=== PATIENT | female | born 1935 | race Caucasian/White ===

== ENCOUNTER 2017-01-26 21:47 | Outpatient (CLI) | payer MEDICARE | END 2017-01-26 21:48 | disposition critical access hospital (66) | DX: S01.01XA Laceration without foreign body of scalp, initial encounter (principal); W01.198A Fall on same level from slipping, tripping and stumbling with subsequent striking against other object, initial encounter; Y93.01 Activity, walking, marching and hiking; Y92.003 Bedroom of unspecified non-institutional (private) residence as the place of occurrence of the external cause | CPT/HCPCS: A0425; A0429 ==

== ENCOUNTER 2017-01-26 22:36 | Emergency (ER) | payer MEDICARE ==
[2017-01-26] MEDS ORDERED: BACITRACIN OINT TOP STA (23:15)
[2017-01-26] MEDS ORDERED: ACETAMINOPHEN 325 MG TABLET PO STA (23:29)
[2017-01-26] MEDS ORDERED: ACETAMINOPHEN 325 MG TABLET PO ONE (23:31)
== END 2017-01-26 23:44 | disposition home or self-care (01) ==
DX: S00.03XA Contusion of scalp, initial encounter (principal); S00.01XA Abrasion of scalp, initial encounter; W01.198A Fall on same level from slipping, tripping and stumbling with subsequent striking against other object, initial encounter; Y92.009 Unspecified place in unspecified non-institutional (private) residence as the place of occurrence of the external cause; I10 Essential (primary) hypertension; G20 Parkinson's disease; Z86.73 Personal history of transient ischemic attack (TIA), and cerebral infarction without residual deficits; Z79.82 Long term (current) use of aspirin
CPT/HCPCS: 99283; 99284; A9270

== ENCOUNTER 2017-03-28 18:24 | Outpatient (CLI) | payer MEDICARE | END 2017-03-28 18:25 | disposition critical access hospital (66) | LOC: EMS 18:24 | PROVIDERS: ATTEND Surgery | DX: M25.512 Pain in left shoulder (principal); R53.1 Weakness; W07.XXXA Fall from chair, initial encounter; Y92.007 Garden or yard of unspecified non-institutional (private) residence as the place of occurrence of the external cause | CPT/HCPCS: A0425; A0427 ==

== ENCOUNTER 2017-03-28 19:02 | Emergency (ER) | payer MEDICARE ==
[2017-03-28] MEDS ORDERED: fentaNYL 100 MCG/2 ML VIAL IVP STA (19:08)
--- NOTE | 2017-03-28 19:10 | ED Physician Documentation ---
PD HPI Fall - Stated complaint Stated Complaint: GLF - History obtained from History obtained from: Patient, EMS - History of Present Illness Mechanism of injury: Other (82-year-old woman with Parkinson's and A. fib, not anticoagulated presents after a ground-level fall from a sitting position, she hit her head and left arm on a rodriguez and complains of severe left arm pain. She has not been ambulatory since the incident. 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 - Present Medications Home Medications: Ambulatory Orders Medication Instructions Recorded Confirmed Aspirin 325 mg PO DAILY 01/26/17 01/26/17 Carbidopa/Levodopa [Carbidopa-Levo 25 - 100 mg PO QID 01/26/17 03/28/17 ER 25-100 Tab] Cholecalciferol (Vitamin D3) 2,000 mg PO DAILY 01/26/17 01/26/17 [Vitamin D3] Cyanocobalamin (Vitamin B-12) 1 tab PO DAILY 01/26/17 01/26/17 [Vitamin B-12] Estradiol [Estrace] 0.1 mg PO 01/26/17 Hydrochlorothiazide 12.5 mg PO DAILY 01/26/17 01/26/17 Ibuprofen [Motrin] 600 mg PO Q6H 01/26/17 01/26/17 Ipratropium [place] BID 01/26/17 Mirtazapine 7.5 mg PO DAILY 01/26/17 01/26/17 Pramipexole [Mirapex] 1 tab PO DAILY 01/26/17 01/26/17 Tamsulosin [Flomax] 1 tab PO DAILY 01/26/17 01/26/17 Oxycodone HCl/Acetaminophen 1 - 2 tab PO Q4H PRN #20 tablet 03/28/17 [Percocet 5-325 mg Tablet] - Allergies Allergies/Adverse Reactions: Allergies Allergy/AdvReac Type Severity Reaction Status Date / Time Sulfa (Sulfonamide Allergy Rash Verified 03/28/17 19:11 Antibiotics) - Social History Does the pt smoke?: No Smoking Status: Never smoker - Family History Family history: reports: Non contributory - Immunizations Immunizations are current?: Yes PD ED PE NORMAL - Vitals Vital signs reviewed: Yes - General General: Alert and oriented X 3, No acute distress - HEENT HEENT: PERRL, EOMI - Neck Neck: Other (C-collar is maintained pending imaging despite no midline bony tenderness given potential distracting injury from the left arm) - Cardiac Cardiac: Other - Respiratory Respiratory: No respiratory distress, Clear bilaterally - Abdomen Abdomen: Soft, Non tender - Back Back: No CVA TTP, No spinal TTP - Derm Derm: Normal color, Warm and dry - Extremities Extremities: Other (Very tender the upper left humerus, normal neurovascular status distal to this.) - Neuro Neuro: Alert and oriented X 3, Normal speech - Psych Psych: Normal mood, Normal affect Results - Vitals Vitals: Vital Signs - 24 hr 03/28/17 03/28/17 19:04 20:35 Temperature 36.2 C L Heart Rate 82 68 Respiratory 17 15 Rate Blood Pressure 153/76 H 126/65 O2 Saturation 92 94 Oxygen O2 Source Room air - Labs Labs: Laboratory Tests 03/28/17 03/28/17 03/28/17 19:20 19:20 19:20 WBC 5.5 RBC 4.84 Hgb 13.4 Hct 40.2 MCV 83.1 MCH 27.7 MCHC 33.4 RDW 13.7 Plt Count 232 MPV 7.7 L Neut # 3.5 Lymph # 1.5 [place] # 0.4 Eos # 0.1 Baso # 0.1 Absolute Nucleated RBC 0.00 Nucleated RBCs 0.0 PT 12.3 INR 1.1 Sodium 139 Potassium 3.5 Chloride 102 Carbon Dioxide 30 Anion Gap 7.0 BUN 21 H Creatinine 0.5 Estimated GFR (MDRD) 118 Glucose 139 H Calcium 8.9 - Rads (name of study) CT Head and Cspine Radiology: EMP read contemporaneously (Age-related changes without acute disease ) Left humerus Radiology: EMP read contemporaneously (3 part surgical neck fracture) PD MEDICAL DECISION MAKING - ED course ED course: 82-year-old woman after ground-level fall with obvious arm injury, CT of the head and C-spine without acute disease, left arm was placed in a sling and the supportive daughter and granddaughter were counseled as to the conservative nature of this fracture generally and follow up with orthopedics and they were comfortable with the plan. Departure - Departure Disposition: 01 Home, Self Care Clinical Impression: Fall Qualifiers: Encounter type: initial encounter Qualified Code(s): W19.XXXA - Unspecified fall, initial encounter Head contusion Qualifiers: Encounter type: initial encounter Contusion of head detail: unspecified part of head Qualified Code(s): S00.93XA - Contusion of unspecified part of head, initial encounter Left humeral fracture Qualifiers: Encounter type: initial encounter Humerus Location: proximal Fracture type: closed Fracture morphology: unspecified fracture morphology Qualified Code(s): S42.202A - Unspecified fracture of upper end of left humerus, initial encounter for closed fracture Record reviewed to determine appropriate education?: Yes Instructions: ED Fx Upper Ext Follow-Up: [facility] [Provider Group] - Within 1 week Prescriptions: Oxycodone HCl/Acetaminophen [Percocet 5-325 mg Tablet] 1 - 2 tab PO Q4H PRN #20 tablet PRN Reason: Pain Comments: Call your doctor to arrange a follow-up appointment, make the next available appointment. In the interim, return anytime if worse or if new symptoms develop. Do not drink or drive while taking narcotic pain medication. Note that many narcotic pain relievers also contain Tylenol/acetaminophen. Please ensure that your total dose of acetaminophen from all sources does not exceed 3 g (3000 mg) per day. You may get constipated while on this medication. Take a stool softener such as Colace twice a day while you are on it. Also add an [id number] laxative such as senna or MiraLAX on any day that you do not have a bowel movement. If you received a narcotic pain medication or sedative while in the emergency department, do not drive for the next 24 hours.
[2017-03-28] MEDS ORDERED: fentaNYL 100 MCG/2 ML VIAL ONE (19:14)
[2017-03-28 19:36] LABS: BASOPHILS # (AUTO) 0.1 10^3/uL (0.0-0.1); EOSINOPHILS # (AUTO) 0.1 10^3/uL (0.0-0.7); EOSINOPHILS % (AUTO) 1.1 %; HCT - HEMATOCRIT 40.2 % (37.0-47.0); HGB - HEMOGLOBIN 13.4 g/dL (12.0-16.0); LYMPHOCYTES # (AUTO) 1.5 10^3/uL (1.5-3.5); LYMPHOCYTES % (AUTO) 27.1 %; MEAN CORPUSCULAR HEMOGLOBIN 27.7 pg (27.0-31.0); MEAN CORPUSCULAR HGB CONC 33.4 g/dL (32.0-36.0); MEAN CORPUSCULAR VOLUME 83.1 fL (81.0-99.0); MEAN PLATELET VOLUME 7.7 fL (7.9-10.8); MONOCYTES # (AUTO) 0.4 10^3/uL (0.0-1.0); MONOCYTES % (AUTO) 7.5 %; NEUTROPHILS # (AUTO) 3.5 10^3/uL (1.5-6.6); NEUTROPHILS % (AUTO) 63.3 %; RED BLOOD COUNT 4.84 10^6/uL (4.20-5.40); RED CELL DISTRIBUTION WIDTH 13.7 % (12.0-15.0); UNCORRECTED WHITE BLOOD COUNT 5.5 x10^3/uL; WHITE BLOOD COUNT 5.5 x10^3/uL (4.8-10.8)
[2017-03-28 19:39] LABS: CALCIUM 8.9 mg/dL (8.5-10.3); CREATININE 0.5 mg/dL (0.4-1.0); POTASSIUM 3.5 mmol/L (3.5-5.0)
[2017-03-28 19:42] LABS: INR 1.1 (0.8-1.2); PT - PROTHROMBIN TIME 12.3 secs (9.9-12.6)
[2017-03-28] MEDS ORDERED: MORPHINE 2 MG/ML SYRINGE IVP STA (20:14)
--- NOTE | 2017-03-28 20:31 | CT Preliminary Report ---
Exam: CT Cervical Spine W/O IMPRESSION: 1. No acute fracture. 2. Normal prevertebral soft tissues. Multilevel degenerative disk and facet arthropathy, see above. [facility] SITE ID: [id number]
[2017-03-28] MEDS ORDERED: MORPHINE 2 MG/ML SYRINGE ONE (20:35)
--- NOTE | 2017-03-28 20:35 | CT Preliminary Report ---
Exam: CT Head W/O IMPRESSION: Generalized age-related cortical atrophic changes without evidence of acute intracranial abnormality. [facility] SITE ID: [id number]
--- NOTE | 2017-03-28 20:36 | XRAY Preliminary Report ---
Exam: XR Humerus LT IMPRESSION: 1. Comminuted three-part humeral neck fracture as described. 2. No dislocation. [facility] SITE ID: [id number]
--- NOTE | 2017-03-28 20:39 | XRAY Report ---
EXAM: LEFT HUMERUS RADIOGRAPHY EXAM DATE: 03/28/2017 07:59 PM. CLINICAL HISTORY: Status post fall, left humeral pain. COMPARISON: None. TECHNIQUE: 2 views. FINDINGS: Bones: There is contour deformity about the humeral neck with a probable mildly displaced greater tub erosity avulsion fracture and transverse humeral neck fracture. The remainder of the humeral shaft is intact. Joints: The humeral head and elbow joints appear normally located. The AC joint is normally located. Soft Tissues: Normal. No soft tissue swelling. IMPRESSION: 1. Comminuted three-part humeral neck fracture as described. 2. No dislocation. [facility] Referring Provider Line: [phone] SITE ID: [id number]
--- NOTE | 2017-03-28 20:40 | CT Report ---
EXAM: CT CERVICAL SPINE WITHOUT CONTRAST DATE: 03/28/2017 07:40 p.m. HISTORY: Fall. COMPARISONS: None. TECHNIQUE: Thin-section axial images were acquired of the cervical spine without contrast. Post-proce ssing: Coronal and sagittal reformats. Other: None. In accordance with CT protocol optimization, one or more of the following dose reduction techniques w ere utilized for this exam: automated exposure control, adjustment of mA and/or KV based on patient s ize, or use of iterative reconstructive technique. FINDINGS: Alignment: Convex to the right curvature of the cervical spine is noted. 1 mm C4 on C5 anterolisthesi s. Bones: No fracture or bone lesion. Interspace Levels/Facets: Moderate C5-C6 and C6-C7 and mild C7-T1 disk narrowing. Prominent C5-C6 and C6-C7 disk osteophyte complex is noted. Marked left C3-C4, C4-C5, C6-C7 and C7-T1 facet arthropathy. Significant amount of hyperdense pannus surrounds the dens. Musculature: Normal. No fatty atrophy. Other: The paravertebral and prevertebral soft tissues are normal. The lung apices are clear. Small a mount of fluid in the right mastoid tip. No fracture noted. IMPRESSION: 1. No acute fracture. 2. Normal prevertebral soft tissues. Multilevel degenerative disk and facet arthropathy, see above. [facility] Referring Provider Line: [phone] SITE ID: [id number]
--- NOTE | 2017-03-28 20:40 | CT Report ---
EXAM: CT HEAD EXAM DATE: 03/28/2017 08:07 p.m. CLINICAL HISTORY: Head injury. COMPARISON: None. TECHNIQUE: Multiaxial CT images were obtained from the foramen magnum to the vertex. IV contrast: Non e. Reformats: Coronal. In accordance with CT protocol optimization, one or more of the following dose reduction techniques w ere utilized for this exam: automated exposure control, adjustment of mA and/or KV based on patient s ize, or use of iterative reconstructive technique. FINDINGS: Parenchyma: No intraparenchymal hemorrhage. No evidence of mass, midline shift, or CT findings of acu te infarction. Urias-white differentiation is distinct. Old right cerebellar infarct. Extraaxial Spaces: Normal for age. No subdural or epidural collections identified. Ventricles: The ventricles and cortical sulci are enlarged, consistent with age-related tissue loss. Sinuses: Small amount of fluid in the right mastoid tip. Paranasal sinuses are clear. Otherwise, the imaged paranasal sinuses, orbits, and mastoids show no significant abnormality. Bones: No evidence of fracture or calvarial defect. Other: Diffuse chronic microangiopathic white matter changes are evident. IMPRESSION: Generalized age-related cortical atrophic changes without evidence of acute intracranial abnormality. [facility] Referring Provider Line: [phone] SITE ID: [id number]
[2017-03-28] MEDS ORDERED: oxyCODONE/ACET 5/325 Prepack 4 PO STA (20:49)
[2017-03-28] MEDS ORDERED: oxyCODONE/ACET 5/325 Prepack 4 PO ONE (20:56)
[2017-03-28 21:20] VITALS: BP 128/81
== END 2017-03-28 21:34 | disposition home or self-care (01) ==
LOC: EDUNIT# → EDBD → ED 19:02
DX: S00.93XA Contusion of unspecified part of head, initial encounter (principal); S42.202A Unspecified fracture of upper end of left humerus, initial encounter for closed fracture; W18.30XA Fall on same level, unspecified, initial encounter; W22.09XA Striking against other stationary object, initial encounter; G20 Parkinson's disease; I10 Essential (primary) hypertension; Z86.73 Personal history of transient ischemic attack (TIA), and cerebral infarction without residual deficits; Z79.82 Long term (current) use of aspirin
CPT/HCPCS: 36415; 70450; 72125; 80048; 85025; 85610; 96374; 96375; 99284; 99285

== ENCOUNTER 2017-03-29 18:33 | Outpatient (CLI) | payer MEDICARE | END 2017-03-29 18:34 | disposition EMS.NT | LOC: EMS 18:33 | PROVIDERS: ATTEND Surgery | DX: R09.89 Other specified symptoms and signs involving the circulatory and respiratory systems (principal); T17.928A Food in respiratory tract, part unspecified causing other injury, initial encounter ==

== ENCOUNTER → 2019-12-06 | Outpatient (CLI) | payer MEDICARE ==
[2019-12-06 17:01] LABS: BILIRUBIN,URINE NEGATIVE (NEGATIVE); GLUCOSE, URINE (UA) NEGATIVE (NEGATIVE); KETONES,URINE (UA) NEGATIVE (NEGATIVE); LEUKOCYTE ESTERASE, URINE SMALL (NEGATIVE); NITRITE,URINE POSITIVE (NEGATIVE); OCCULT BLOOD,URINE SMALL (NEGATIVE); PH,URINE 7.5 PH (5.0-7.5); PROTEIN,URINE TRACE mg/dL (NEGATIVE); UROBILINOGEN,URINE 0.2 (NORMAL) E.U./dL (NORMAL)
[2019-12-06 17:05] LABS: CLARITY,URINE HAZY (CLEAR)
[2019-12-06 17:11] LABS: AMORPHOUS SEDIMENT,UR Few /LPF; BACTERIA,URINE Many /HPF (None Seen); SQUAMOUS EPITHELIAL CELL,UR FEW Squamous (<= Few)
== END ==
LOC: LAB.R 11:00
PROVIDERS: ATTEND Internal Medicine
DX: Z87.440 Personal history of urinary (tract) infections (principal)
CPT/HCPCS: 81001; 87086

== ENCOUNTER 2019-12-24 07:00 | Outpatient (CLI) | payer MEDICARE ==
[2019-12-24 17:31] LABS: BILIRUBIN,URINE NEGATIVE (NEGATIVE); GLUCOSE, URINE (UA) NEGATIVE (NEGATIVE); KETONES,URINE (UA) TRACE mg/dL (NEGATIVE); LEUKOCYTE ESTERASE, URINE SMALL (NEGATIVE); NITRITE,URINE POSITIVE (NEGATIVE); OCCULT BLOOD,URINE TRACE-LYSE (NEGATIVE); PH,URINE 6.5 PH (5.0-7.5); PROTEIN,URINE 100 mg/dL (NEGATIVE); UROBILINOGEN,URINE 0.2 (NORMAL) E.U./dL (NORMAL)
[2019-12-24 17:53] LABS: BACTERIA,URINE Many /HPF (None Seen); CLARITY,URINE CLOUDY (CLEAR); RBC,URINE TNTC /HPF (0-5); SQUAMOUS EPITHELIAL CELL,UR NONE SEEN (<= Few); WBC CLUMPS,URINE PRESENT
== END 2019-12-24 23:59 | disposition home or self-care (01) ==
LOC: LAB.R 07:00
PROVIDERS: ATTEND Internal Medicine
DX: R30.0 Dysuria (principal)
CPT/HCPCS: 81001; 87077; 87086; 87181

== ENCOUNTER 2020-03-21 13:00 | Outpatient (CLI) | payer MEDICARE ==
[2020-03-21 14:43] LABS: BILIRUBIN,URINE NEGATIVE (NEGATIVE); GLUCOSE, URINE (UA) NEGATIVE (NEGATIVE); KETONES,URINE (UA) TRACE mg/dL (NEGATIVE); LEUKOCYTE ESTERASE, URINE SMALL (NEGATIVE); NITRITE,URINE POSITIVE (NEGATIVE); OCCULT BLOOD,URINE TRACE-INTA (NEGATIVE); PROTEIN,URINE 30 mg/dL (NEGATIVE); UROBILINOGEN,URINE 0.2 (NORMAL) E.U./dL (NORMAL)
[2020-03-21 14:53] LABS: CLARITY,URINE HAZY (CLEAR); RBC,URINE 0-5 /HPF (0-5); SQUAMOUS EPITHELIAL CELL,UR NONE SEEN (<= Few)
[2020-03-21 14:54] LABS: BACTERIA,URINE Many /HPF (None Seen)
== END 2020-03-21 13:01 | disposition home or self-care (01) ==
LOC: LAB.S 13:00
PROVIDERS: ATTEND Internal Medicine
DX: R30.0 Dysuria (principal)
CPT/HCPCS: 81001; 87077; 87086; 87181

== ENCOUNTER 2021-02-02 00:54 | Outpatient (CLI) | payer MEDICARE | END 2021-02-02 00:55 | disposition EMS.NT | LOC: EMS 00:54 | DX: Z03.89 Encounter for observation for other suspected diseases and conditions ruled out (principal) ==

== ENCOUNTER 2021-04-16 08:00 | Outpatient (CLI) | payer MEDICARE, OTHER | END 2021-04-16 23:59 | disposition home or self-care (01) | LOC: LAB.S 08:00 | PROVIDERS: ATTEND Physician Assistant Medical | DX: N30.90 Cystitis, unspecified without hematuria (principal) | CPT/HCPCS: 87086 ==

== ENCOUNTER 2021-05-02 07:00 | Outpatient (CLI) | payer MEDICARE ==
[2021-05-02 14:52] LABS: BILIRUBIN,URINE NEGATIVE (NEGATIVE); GLUCOSE, URINE (UA) NEGATIVE (NEGATIVE); KETONES,URINE (UA) NEGATIVE (NEGATIVE); LEUKOCYTE ESTERASE, URINE SMALL (NEGATIVE); NITRITE,URINE NEGATIVE (NEGATIVE); OCCULT BLOOD,URINE TRACE-LYSE (NEGATIVE); PH,URINE 8.5 PH (5.0-7.5); PROTEIN,URINE 30 mg/dL (NEGATIVE); UROBILINOGEN,URINE 1 (NORMAL) E.U./dL (NORMAL)
[2021-05-02 15:07] LABS: CLARITY,URINE CLOUDY (CLEAR)
[2021-05-02 16:00] LABS: RBC,URINE 0-5 /HPF (0-5)
[2021-05-02 16:01] LABS: AMORPHOUS SEDIMENT,UR Moderate /LPF; BACTERIA,URINE Moderate /HPF (None Seen); MUCUS,URINE Few Strands; SQUAMOUS EPITHELIAL CELL,UR MANY Squamous (<= Few)
== END 2021-05-02 23:59 | disposition home or self-care (01) ==
LOC: LAB.R 07:00
PROVIDERS: ATTEND Emergency Medicine
DX: R30.0 Dysuria (principal)
CPT/HCPCS: 81001; 81003; 87086

== ENCOUNTER 2021-05-19 12:35 | Outpatient (CLI) | payer MEDICARE, OTHER | END 2021-05-19 12:36 | disposition short-term general hospital (02) | LOC: EMS 12:35 | DX: Z04.3 Encounter for examination and observation following other accident (principal); M25.552 Pain in left hip | CPT/HCPCS: A0425; A0427 ==

== ENCOUNTER 2021-06-02 08:00 | Outpatient (CLI) | payer MEDICARE, OTHER ==
[2021-06-02 17:09] LABS: BASOPHILS % (AUTO) 0.6 %; EOSINOPHILS # (AUTO) 0.1 10^3/uL (0.0-0.7); EOSINOPHILS % (AUTO) 1.4 %; HCT - HEMATOCRIT 37.4 % (37.0-47.0); HGB - HEMOGLOBIN 11.5 g/dL (12.0-16.0); LYMPHOCYTES # (AUTO) 0.7 10^3/uL (1.5-3.5); LYMPHOCYTES % (AUTO) 9.5 %; MEAN CORPUSCULAR HEMOGLOBIN 28.7 pg (27.0-31.0); MEAN CORPUSCULAR HGB CONC 30.7 g/dL (32.0-36.0); MEAN CORPUSCULAR VOLUME 93.3 fL (81.0-99.0); MEAN PLATELET VOLUME 9.2 fL (7.9-10.8); MONOCYTES # (AUTO) 0.5 10^3/uL (0.0-1.0); MONOCYTES % (AUTO) 7.5 %; NEUTROPHILS # (AUTO) 5.6 10^3/uL (1.5-6.6); NEUTROPHILS % (AUTO) 79.7 %; PLT - PLATELET COUNT 440 10^3/uL (130-450); RED BLOOD COUNT 4.01 10^6/uL (4.20-5.40); RED CELL DISTRIBUTION WIDTH 14.6 % (12.0-15.0)
[2021-06-02 18:02] LABS: ALBUMIN 2.9 g/dL (3.2-5.5); ALBUMIN/GLOBULIN RATIO 1.2 (1.0-2.2); BILIRUBIN,TOTAL 0.7 mg/dL (0.2-1.0); CALCIUM 8.9 mg/dL (8.5-10.3); CREATININE 0.6 mg/dL (0.4-1.0); POTASSIUM 4.3 mmol/L (3.5-5.0); TOTAL PROTEIN 5.4 g/dL (6.7-8.2)
== END 2021-06-02 23:59 | disposition home or self-care (01) ==
LOC: LAB.R 08:00
PROVIDERS: ATTEND Family Medicine
DX: D64.9 Anemia, unspecified (principal); G20 Parkinson's disease; I48.91 Unspecified atrial fibrillation
CPT/HCPCS: 80053; 82728; 85025

== ENCOUNTER 2021-06-30 08:00 | Outpatient (CLI) | payer MEDICARE, OTHER ==
[2021-07-01 00:48] LABS: BASOPHILS # (AUTO) 0.1 10^3/uL (0.0-0.1); BASOPHILS % (AUTO) 0.8 %; EOSINOPHILS # (AUTO) 0.4 10^3/uL (0.0-0.7); EOSINOPHILS % (AUTO) 5.9 %; HCT - HEMATOCRIT 39.8 % (37.0-47.0); HGB - HEMOGLOBIN 12.5 g/dL (12.0-16.0); LYMPHOCYTES # (AUTO) 1.2 10^3/uL (1.5-3.5); LYMPHOCYTES % (AUTO) 17.9 %; MEAN CORPUSCULAR HEMOGLOBIN 27.8 pg (27.0-31.0); MEAN CORPUSCULAR HGB CONC 31.4 g/dL (32.0-36.0); MEAN CORPUSCULAR VOLUME 88.4 fL (81.0-99.0); MEAN PLATELET VOLUME 9.7 fL (7.9-10.8); MONOCYTES # (AUTO) 0.5 10^3/uL (0.0-1.0); MONOCYTES % (AUTO) 8.3 %; NEUTROPHILS # (AUTO) 4.3 10^3/uL (1.5-6.6); NEUTROPHILS % (AUTO) 66.5 %; PLT - PLATELET COUNT 306 10^3/uL (130-450); RED CELL DISTRIBUTION WIDTH 13.3 % (12.0-15.0); WHITE BLOOD COUNT 6.5 x10^3/uL (4.8-10.8)
[2021-07-01 00:53] LABS: CALCIUM 9.1 mg/dL (8.5-10.3); CREATININE 0.6 mg/dL (0.4-1.0); POTASSIUM 3.8 mmol/L (3.5-5.0)
== END 2021-06-30 23:59 ==
LOC: LAB.R 08:00
PROVIDERS: ATTEND Family Medicine
DX: I10 Essential (primary) hypertension (principal)
CPT/HCPCS: 80048; 85025

== ENCOUNTER 2021-07-27 08:00 | Outpatient (CLI) | payer MEDICARE, OTHER ==
[2021-07-27 18:46] LABS: BASOPHILS # (AUTO) 0.1 10^3/uL (0.0-0.1); BASOPHILS % (AUTO) 0.9 %; EOSINOPHILS # (AUTO) 0.2 10^3/uL (0.0-0.7); EOSINOPHILS % (AUTO) 2.9 %; HCT - HEMATOCRIT 43.8 % (37.0-47.0); HGB - HEMOGLOBIN 13.5 g/dL (12.0-16.0); LYMPHOCYTES # (AUTO) 0.9 10^3/uL (1.5-3.5); LYMPHOCYTES % (AUTO) 14.6 %; MEAN CORPUSCULAR HEMOGLOBIN 26.7 pg (27.0-31.0); MEAN CORPUSCULAR HGB CONC 30.8 g/dL (32.0-36.0); MEAN CORPUSCULAR VOLUME 86.6 fL (81.0-99.0); MEAN PLATELET VOLUME 10.2 fL (7.9-10.8); MONOCYTES # (AUTO) 0.5 10^3/uL (0.0-1.0); MONOCYTES % (AUTO) 7.8 %; NEUTROPHILS # (AUTO) 4.3 10^3/uL (1.5-6.6); NEUTROPHILS % (AUTO) 73.5 %; PLT - PLATELET COUNT 281 10^3/uL (130-450); RED BLOOD COUNT 5.06 10^6/uL (4.20-5.40); RED CELL DISTRIBUTION WIDTH 13.1 % (12.0-15.0); WHITE BLOOD COUNT 5.9 x10^3/uL (4.8-10.8)
[2021-07-27 18:53] LABS: ALBUMIN 3.5 g/dL (3.2-5.5); ALBUMIN/GLOBULIN RATIO 1.2 (1.0-2.2); ALKALINE PHOSPHATASE 70 IU/L (42-121); ALT ALANINE AMINOTRANSFERASE < 10 IU/L (10-60); AST ASPARTATE AMINOTRANSFERASE 12 IU/L (10-42); BILIRUBIN,TOTAL 0.6 mg/dL (0.2-1.0); BUN - BLOOD UREA NITROGEN 16 mg/dL (6-20); CALCIUM 9.4 mg/dL (8.5-10.3); CARBON DIOXIDE - CO2 29 mmol/L (21-32); CHLORIDE 104 mmol/L (101-111); CREATININE 0.4 mg/dL (0.4-1.0); GFR - MDRD 151 (>89); GLUCOSE 100 mg/dL (70-100); SODIUM 143 mmol/L (135-145); TOTAL PROTEIN 6.4 g/dL (6.7-8.2)
== END 2021-07-27 23:59 ==
LOC: LAB.R 08:00
PROVIDERS: ATTEND Family Medicine
DX: G20 Parkinson's disease (principal); I48.91 Unspecified atrial fibrillation; N82.3 Fistula of vagina to large intestine
CPT/HCPCS: 80053; 81001; 81003; 85025; 87086

== ENCOUNTER → 2021-07-28 | Outpatient (CLI) | payer MEDICARE, OTHER ==
[2021-07-28 01:10] LABS: BILIRUBIN,URINE NEGATIVE (NEGATIVE); GLUCOSE, URINE (UA) NEGATIVE (NEGATIVE); KETONES,URINE (UA) TRACE mg/dL (NEGATIVE); LEUKOCYTE ESTERASE, URINE SMALL (NEGATIVE); NITRITE,URINE POSITIVE (NEGATIVE); OCCULT BLOOD,URINE TRACE-INTA (NEGATIVE); PROTEIN,URINE NEGATIVE (NEGATIVE); UROBILINOGEN,URINE 1 (NORMAL) E.U./dL (NORMAL)
[2021-07-28 01:11] LABS: CLARITY,URINE SL. CLOUDY (CLEAR)
[2021-07-28 01:18] LABS: BACTERIA,URINE Many /HPF (None Seen); RBC,URINE 0-5 /HPF (0-5); SQUAMOUS EPITHELIAL CELL,UR NONE SEEN (<= Few)
== END ==
LOC: LAB.R 08:00
PROVIDERS: ATTEND Family Medicine
DX: N82.3 Fistula of vagina to large intestine (principal)
CPT/HCPCS: 81001; 81003; 87086

== ENCOUNTER 2021-08-07 19:36 | Outpatient (CLI) | payer MEDICARE, OTHER, MEDICAID | END 2021-08-07 19:37 | disposition critical access hospital (66) | LOC: EMS 19:36 | DX: N39.0 Urinary tract infection, site not specified (principal); F03.90 Unspecified dementia, unspecified severity, without behavioral disturbance, psychotic disturbance, mood disturbance, and anxiety | CPT/HCPCS: A0425; A0428; A0429 ==

== ENCOUNTER 2021-08-07 19:42 | Emergency (ER) | payer MEDICARE, OTHER ==
[2021-08-07 19:50] VITALS: BP 118/86
[2021-08-07] MEDS ORDERED: cephALEXin 250 MG CAPSULE PO STA (19:53)
--- NOTE | 2021-08-07 19:58 | ED Physician Documentation ---
History of Present Illness - Stated complaint Stated Complaint: FEMALE - Chief complaint Chief Complaint: UTI - History obtained from History obtained from: Patient, EMS - History of Present Illness Timing: Today Pain level max: 0 Pain level now: 0 - Additonal information Additional information: Patient is an 86-year-old female Who was sent over from [facility] for UTI. Has chronic recurrent UTIs. Has a chronic rectovaginal fistula. 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 Patient is afebrile with no complaints currently. 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 - Present Medications Home Medications: Ambulatory Orders Medication Instructions Recorded Confirmed Aspirin 325 mg PO DAILY 01/26/17 01/26/17 Carbidopa/Levodopa [Carbidopa-Levo 25 - 100 mg PO QID 01/26/17 03/28/17 ER 25-100 Tab] Cholecalciferol (Vitamin D3) 2,000 mg PO DAILY 01/26/17 01/26/17 [Vitamin D3] Cyanocobalamin (Vitamin B-12) 1 tab PO DAILY 01/26/17 01/26/17 [Vitamin B-12] Estradiol [Estrace] 0.1 mg PO 01/26/17 Ibuprofen [Motrin] 600 mg PO Q6H 01/26/17 01/26/17 Ipratropium [place] BID 01/26/17 Mirtazapine 7.5 mg PO DAILY 01/26/17 01/26/17 Pramipexole [Mirapex] 1 tab PO DAILY 01/26/17 01/26/17 Tamsulosin [Flomax] 1 tab PO DAILY 01/26/17 01/26/17 hydroCHLOROthiazide 12.5 mg PO DAILY 01/26/17 01/26/17 [Hydrochlorothiazide] Oxycodone HCl/Acetaminophen 1 - 2 tab PO Q4H PRN #20 tablet 03/28/17 [Percocet 5-325 mg Tablet] cephALEXin [Keflex] 500 mg PO Q6H #20 cap 08/07/21 - Allergies Allergies/Adverse Reactions: Allergies Allergy/AdvReac Type Severity Reaction Status Date / Time alendronate sodium Allergy Unknown Verified 08/07/21 19:51 [From Fosamax] amoxicillin Allergy Unknown Verified 08/07/21 19:51 oxycodone Allergy Unknown Verified 08/07/21 19:51 risedronate sodium Allergy Unknown Verified 08/07/21 19:51 Sulfa (Sulfonamide Allergy Rash Verified 08/07/21 19:51 Antibiotics) tramadol Allergy Unknown Verified 08/07/21 19:51 - Social History Does the pt smoke?: No Smoking Status: Never smoker - Immunizations Immunizations are current?: Yes PD ED PE NORMAL - Vitals Vital signs reviewed: Yes - General General: No acute distress, Other (Alert, pleasant. Oriented to person and place) - HEENT HEENT: PERRL, Moist mucous membranes - Neck Neck: Supple, no meningeal sign - Cardiac Cardiac: RRR - Respiratory Respiratory: No respiratory distress, Clear bilaterally - Abdomen Abdomen: Soft, Non tender, Non distended - Female Female : Other (Incontinent in a diaper. No significant skin breakdown.) - Derm Derm: Warm and dry Results - Vitals Vitals: Vital Signs - 24 hr 08/07/21 08/07/21 19:46 20:04 Temperature 36.6 C 36.6 C Heart Rate 91 91 Respiratory 18 18 Rate Blood Pressure 118/86 H 118/86 H O2 Saturation 97 97 Oxygen O2 Source Room air PD MEDICAL DECISION MAKING - ED course Complexity details: reviewed old records, considered differential, d/w patient ED course: Patient with symptoms of her recurrent UTI. Reviewed her prior cultures and we will place her on cephalexin. Appears to have tolerated this well in the past. Patient will be returned to [facility]. This document was made in part using voice recognition software. While efforts are made to proofread this document, sound alike and grammatical errors may occur. Departure - Departure Disposition: 01 Home, Self Care Clinical Impression: Urinary tract infection Qualifiers: Urinary tract infection type: acute cystitis Hematuria presence: without hematuria Qualified Code(s): N30.00 - Acute cystitis without hematuria Condition: Good Instructions: ED UTI Cystitis Female Follow-Up: your,doctor as needed [Other] Prescriptions: cephALEXin [Keflex] 500 mg PO Q6H #20 cap Comments: Take all antibiotics until gone. Return if you worsen. The prescription was sent to the [facility] pharmacy. Discharge Date/Time: 08/07/21 20:06
== END 2021-08-07 20:06 | disposition home or self-care (01) ==
LOC: EDBD → EDUNIT# → ED 19:42
DX: N30.00 Acute cystitis without hematuria (principal)
CPT/HCPCS: 99282; 99283; A9270

== ENCOUNTER 2021-08-07 20:06 | Outpatient (CLI) | payer MEDICARE, OTHER, MEDICAID | END 2021-08-07 20:07 | disposition home or self-care (01) | LOC: EMS 20:06 | PROVIDERS: ATTEND Emergency Medicine | DX: F03.90 Unspecified dementia, unspecified severity, without behavioral disturbance, psychotic disturbance, mood disturbance, and anxiety (principal) ==

== ENCOUNTER 2021-12-01 07:00 | Outpatient (CLI) | payer MEDICARE, MEDICAID ==
[2021-12-01 15:05] LABS: BASOPHILS % (AUTO) 0.4 %; EOSINOPHILS # (AUTO) 0.1 10^3/uL (0.0-0.7); EOSINOPHILS % (AUTO) 1.3 %; HCT - HEMATOCRIT 43.3 % (37.0-47.0); HGB - HEMOGLOBIN 13.3 g/dL (12.0-16.0); LYMPHOCYTES # (AUTO) 1.1 10^3/uL (1.5-3.5); LYMPHOCYTES % (AUTO) 21.2 %; MEAN CORPUSCULAR HEMOGLOBIN 26.4 pg (27.0-31.0); MEAN CORPUSCULAR HGB CONC 30.7 g/dL (32.0-36.0); MEAN CORPUSCULAR VOLUME 85.9 fL (81.0-99.0); MEAN PLATELET VOLUME 9.7 fL (7.9-10.8); MONOCYTES # (AUTO) 0.5 10^3/uL (0.0-1.0); NEUTROPHILS # (AUTO) 3.6 10^3/uL (1.5-6.6); NEUTROPHILS % (AUTO) 67.5 %; PLT - PLATELET COUNT 218 10^3/uL (130-450); RED BLOOD COUNT 5.04 10^6/uL (4.20-5.40); RED CELL DISTRIBUTION WIDTH 15.3 % (12.0-15.0); WHITE BLOOD COUNT 5.3 x10^3/uL (4.8-10.8)
[2021-12-01 15:15] LABS: ALBUMIN 3.6 g/dL (3.2-5.5); ALBUMIN/GLOBULIN RATIO 1.3 (1.0-2.2); ALKALINE PHOSPHATASE 68 IU/L (42-121); ALT ALANINE AMINOTRANSFERASE < 10 IU/L (10-60); AST ASPARTATE AMINOTRANSFERASE 20 IU/L (10-42); BILIRUBIN,TOTAL 0.7 mg/dL (0.2-1.0); BUN - BLOOD UREA NITROGEN 20 mg/dL (6-20); CALCIUM 9.4 mg/dL (8.5-10.3); CARBON DIOXIDE - CO2 30 mmol/L (21-32); CHLORIDE 101 mmol/L (101-111); CREATININE 0.4 mg/dL (0.4-1.0); GFR - MDRD 151 (>89); GLUCOSE 124 mg/dL (70-100); POTASSIUM 4.1 mmol/L (3.5-5.0); SODIUM 140 mmol/L (135-145); TOTAL PROTEIN 6.4 g/dL (6.7-8.2)
== END 2021-12-01 23:59 | disposition home or self-care (01) ==
LOC: LAB.R 07:00
PROVIDERS: ATTEND Hospitalist
DX: G20 Parkinson's disease (principal); I10 Essential (primary) hypertension; I48.91 Unspecified atrial fibrillation
CPT/HCPCS: 80053; 85025

== ENCOUNTER 2021-12-03 16:40 | Outpatient (CLI) | payer MEDICARE, MEDICAID ==
[2021-12-03 17:24] LABS: ALBUMIN 3.7 g/dL (3.2-5.5); ALBUMIN/GLOBULIN RATIO 1.3 (1.0-2.2); ALKALINE PHOSPHATASE 75 IU/L (42-121); ALT ALANINE AMINOTRANSFERASE < 10 IU/L (10-60); AST ASPARTATE AMINOTRANSFERASE 20 IU/L (10-42); BILIRUBIN,TOTAL 0.5 mg/dL (0.2-1.0); BUN - BLOOD UREA NITROGEN 20 mg/dL (6-20); CALCIUM 9.4 mg/dL (8.5-10.3); CARBON DIOXIDE - CO2 28 mmol/L (21-32); CHLORIDE 101 mmol/L (101-111); CREATININE 0.4 mg/dL (0.4-1.0); GFR - MDRD 151 (>89); GLUCOSE 128 mg/dL (70-100); SODIUM 139 mmol/L (135-145); TOTAL PROTEIN 6.6 g/dL (6.7-8.2)
[2021-12-03 18:24] LABS: BASOPHILS % (AUTO) 0.4 %; EOSINOPHILS # (AUTO) 0.1 10^3/uL (0.0-0.7); HCT - HEMATOCRIT 45.5 % (37.0-47.0); HGB - HEMOGLOBIN 13.9 g/dL (12.0-16.0); LYMPHOCYTES # (AUTO) 1.5 10^3/uL (1.5-3.5); LYMPHOCYTES % (AUTO) 29.2 %; MEAN CORPUSCULAR HEMOGLOBIN 26.4 pg (27.0-31.0); MEAN CORPUSCULAR HGB CONC 30.5 g/dL (32.0-36.0); MEAN CORPUSCULAR VOLUME 86.3 fL (81.0-99.0); MEAN PLATELET VOLUME 10.2 fL (7.9-10.8); MONOCYTES # (AUTO) 0.4 10^3/uL (0.0-1.0); MONOCYTES % (AUTO) 7.9 %; NEUTROPHILS % (AUTO) 59.9 %; PLT - PLATELET COUNT 239 10^3/uL (130-450); RED BLOOD COUNT 5.27 10^6/uL (4.20-5.40); RED CELL DISTRIBUTION WIDTH 15.4 % (12.0-15.0); WHITE BLOOD COUNT 5.1 x10^3/uL (4.8-10.8)
== END 2021-12-03 23:59 | disposition home or self-care (01) ==
LOC: LAB.R 16:40
PROVIDERS: ATTEND Hospitalist
DX: G20 Parkinson's disease (principal)
CPT/HCPCS: 80053; 85025

== ENCOUNTER 2022-04-01 08:00 | Outpatient (CLI) | payer MEDICARE, MEDICAID ==
[2022-04-01 16:19] LABS: GLUCOSE, URINE (UA) NEGATIVE (NEGATIVE); KETONES,URINE (UA) NEGATIVE (NEGATIVE); LEUKOCYTE ESTERASE, URINE MODERATE (NEGATIVE); NITRITE,URINE NEGATIVE (NEGATIVE); OCCULT BLOOD,URINE LARGE (NEGATIVE); PH,URINE 7.5 PH (5.0-7.5); PROTEIN,URINE >=300 mg/dL (NEGATIVE); UROBILINOGEN,URINE 0.2 (NORMAL) E.U./dL (NORMAL)
[2022-04-01 16:20] LABS: CLARITY,URINE CLOUDY (CLEAR)
[2022-04-01 16:22] LABS: BILIRUBIN,URINE NEGATIVE (NEGATIVE); ICTOTEST,URINE NEGATIVE
[2022-04-01 16:29] LABS: BACTERIA,URINE Many /HPF (None Seen); SQUAMOUS EPITHELIAL CELL,UR RARE Squamous (<= Few); WBC,URINE >25 /HPF (0-5)
== END 2022-04-01 23:59 | disposition home or self-care (01) ==
LOC: LAB.R 08:00
PROVIDERS: ATTEND Hospitalist
DX: N39.0 Urinary tract infection, site not specified (principal)
CPT/HCPCS: 81001; 87077; 87086; 87181

== ENCOUNTER 2022-05-01 11:46 | Outpatient (CLI) | payer MEDICARE, MEDICAID ==
[2022-05-01 11:55] LABS: BILIRUBIN,URINE NEGATIVE (NEGATIVE); CLARITY,URINE CLOUDY (CLEAR); GLUCOSE, URINE (UA) NEGATIVE (NEGATIVE); KETONES,URINE (UA) TRACE mg/dL (NEGATIVE); LEUKOCYTE ESTERASE, URINE MODERATE (NEGATIVE); NITRITE,URINE POSITIVE (NEGATIVE); OCCULT BLOOD,URINE LARGE (NEGATIVE); PROTEIN,URINE 100 mg/dL (NEGATIVE); UROBILINOGEN,URINE 0.2 (NORMAL) E.U./dL (NORMAL)
[2022-05-01 12:08] LABS: BACTERIA,URINE Moderate /HPF (None Seen); SQUAMOUS EPITHELIAL CELL,UR FEW Squamous (<= Few); WBC,URINE >25 /HPF (0-5)
== END 2022-05-01 11:47 | disposition home or self-care (01) ==
LOC: LAB.R 11:46
PROVIDERS: ATTEND Hospitalist
DX: N39.0 Urinary tract infection, site not specified (principal)
CPT/HCPCS: 81001; 87086; 87181

== ENCOUNTER 2022-06-18 08:00 | Outpatient (CLI) | payer MEDICARE, MEDICAID ==
[2022-06-18 18:24] LABS: BILIRUBIN,URINE NEGATIVE (NEGATIVE); GLUCOSE, URINE (UA) NEGATIVE (NEGATIVE); KETONES,URINE (UA) NEGATIVE (NEGATIVE); LEUKOCYTE ESTERASE, URINE LARGE (NEGATIVE); NITRITE,URINE NEGATIVE (NEGATIVE); OCCULT BLOOD,URINE MODERATE (NEGATIVE); PH,URINE 7.5 PH (5.0-7.5); PROTEIN,URINE 100 mg/dL (NEGATIVE); UROBILINOGEN,URINE 1 (NORMAL) E.U./dL (NORMAL)
[2022-06-18 18:28] LABS: CLARITY,URINE CLOUDY (CLEAR)
[2022-06-18 18:53] LABS: BACTERIA,URINE Many /HPF (None Seen); SQUAMOUS EPITHELIAL CELL,UR RARE Squamous (<= Few); WBC,URINE >25 /HPF (0-5)
== END 2022-06-18 23:59 | disposition home or self-care (01) ==
LOC: LAB.R 08:00
DX: N39.0 Urinary tract infection, site not specified (principal)
CPT/HCPCS: 81001; 81003; 87086

== ENCOUNTER 2022-07-21 08:00 | Outpatient (CLI) | payer MEDICARE, MEDICAID ==
[2022-07-21 15:56] LABS: BILIRUBIN,URINE NEGATIVE (NEGATIVE); GLUCOSE, URINE (UA) NEGATIVE (NEGATIVE); KETONES,URINE (UA) NEGATIVE (NEGATIVE); LEUKOCYTE ESTERASE, URINE LARGE (NEGATIVE); NITRITE,URINE POSITIVE (NEGATIVE); OCCULT BLOOD,URINE MODERATE (NEGATIVE); PROTEIN,URINE 30 mg/dL (NEGATIVE); UROBILINOGEN,URINE 1 (NORMAL) E.U./dL (NORMAL)
[2022-07-21 16:06] LABS: CLARITY,URINE CLOUDY (CLEAR)
[2022-07-21 16:10] LABS: BACTERIA,URINE Many /HPF (None Seen); RBC,URINE 0-5 /HPF (0-5); SQUAMOUS EPITHELIAL CELL,UR FEW Squamous (<= Few); WBC,URINE >25 /HPF (0-5)
== END 2022-07-21 23:59 | disposition home or self-care (01) ==
LOC: LAB.R 08:00
PROVIDERS: ATTEND Internal Medicine
DX: N39.0 Urinary tract infection, site not specified (principal)
CPT/HCPCS: 81001; 87086; 87181

== ENCOUNTER 2022-08-06 08:00 | Outpatient (CLI) | payer MEDICARE, MEDICAID ==
[2022-08-06 17:44] LABS: CALCIUM 9.2 mg/dL (8.5-10.3); CREATININE 0.5 mg/dL (0.4-1.0); POTASSIUM 3.6 mmol/L (3.5-5.0)
== END 2022-08-06 23:59 | disposition home or self-care (01) ==
LOC: LAB 08:00
PROVIDERS: ATTEND Internal Medicine
DX: I11.9 Hypertensive heart disease without heart failure (principal)
CPT/HCPCS: 36415; 80048

== ENCOUNTER 2022-09-25 15:27 | Outpatient (CLI) | payer MEDICARE, MEDICAID ==
[2022-09-25 19:05] LABS: B. PARAPERTUSSIS- RESP PCR PAN NOT DETECTED; B. PERTUSSIS- RESP PCR PANEL NOT DETECTED; C. PNEUMONIAE- RESP PCR PANEL NOT DETECTED; CORONAVIRUS 229E-RESP PCR NOT DETECTED; CORONAVIRUS HKU1-RESP PCR NOT DETECTED; CORONAVIRUS NL63-RESP PCR NOT DETECTED; CORONAVIRUS OC43-RESP PCR NOT DETECTED; HUMAN METAPNEUMOVIRUS NOT DETECTED; INFLUENZA A- RESP PCR PANEL NOT DETECTED; INFLUENZA B - RESP PCR PANEL NOT DETECTED; M. PNEUMONIAE- RESP PCR PANEL NOT DETECTED; PARAINFLUENZA VIRUS 1 NOT DETECTED; PARAINFLUENZA VIRUS 2 NOT DETECTED; PARAINFLUENZA VIRUS 3 NOT DETECTED; PARAINFLUENZA VIRUS 4 NOT DETECTED; RHINOVIRUS/ENTEROVIRUS NOT DETECTED; RSV- RESP PCR PANEL DETECTED; SARS-CoV-2 -RESP PCR PANEL NOT DETECTED
== END 2022-09-25 15:28 | disposition home or self-care (01) ==
LOC: LAB.R 15:27
PROVIDERS: ATTEND Internal Medicine
DX: R05.9 Cough, unspecified (principal); Z20.822 Contact with and (suspected) exposure to COVID-19
CPT/HCPCS: 87633

== ENCOUNTER 2022-10-08 17:06 | Outpatient (CLI) | payer MEDICARE, MEDICAID | END 2022-10-08 17:07 | disposition critical access hospital (66) | LOC: EMS 17:06 | DX: R41.82 Altered mental status, unspecified (principal); Z66 Do not resuscitate | CPT/HCPCS: A0425; A0429 ==

== ENCOUNTER 2022-10-08 17:11 | Inpatient (IN) | payer MEDICARE, MEDICAID ==
[2022-10-08] MEDS ORDERED: SODIUM CHLORIDE 0.9% 1,000 ML IV STA ×2 (17:25)
--- NOTE | 2022-10-08 17:28 | ED Physician Documentation ---
History of Present Illness - Stated complaint Stated Complaint: MALAISE - Chief complaint Chief Complaint: Neuro - History obtained from History obtained from: EMS - History of Present Illness Timing: Today Pain level max: 0 Pain level now: 0 - Additonal information Additional information: Patient is an 87-year-old female brought in from [facility]. Per EMS they state that she has had decreased responsiveness and decreased appetite over the past several days. She has been coughing as well. She recently tested positive for RSV. She does not use oxygen at home. EMS states that upon their arrival her blood pressure systolic was in the 60s. They administered IV fluids on route to the hospital. Patient is DNR, selective interventions. She is nonambulatory at baseline per EMS. She is wheeled around in a wheelchair. 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 - Present Medications Home Medications: Ambulatory Orders Medication Instructions Recorded Confirmed Aspirin 325 mg PO DAILY 01/26/17 01/26/17 Carbidopa/Levodopa [Carbidopa-Levo 25 - 100 mg PO QID 01/26/17 03/28/17 ER 25-100 Tab] Cholecalciferol (Vitamin D3) 2,000 mg PO DAILY 01/26/17 01/26/17 [Vitamin D3] Cyanocobalamin (Vitamin B-12) 1 tab PO DAILY 01/26/17 01/26/17 [Vitamin B-12] Estradiol [Estrace] 0.1 mg PO 01/26/17 Ibuprofen [Motrin] 600 mg PO Q6H 01/26/17 01/26/17 Ipratropium [place] BID 01/26/17 Mirtazapine 7.5 mg PO DAILY 01/26/17 01/26/17 Pramipexole [Mirapex] 1 tab PO DAILY 01/26/17 01/26/17 Tamsulosin [Flomax] 1 tab PO DAILY 01/26/17 01/26/17 hydroCHLOROthiazide 12.5 mg PO DAILY 01/26/17 01/26/17 [Hydrochlorothiazide] Oxycodone HCl/Acetaminophen 1 - 2 tab PO Q4H PRN #20 tablet 03/28/17 [Percocet 5-325 mg Tablet] cephALEXin [Keflex] 500 mg PO Q6H #20 cap 08/07/21 - Allergies Allergies/Adverse Reactions: Allergies Allergy/AdvReac Type Severity Reaction Status Date / Time alendronate sodium Allergy Unknown Verified 08/07/21 19:51 [From Fosamax] amoxicillin Allergy Unknown Verified 08/07/21 19:51 oxycodone Allergy Unknown Verified 08/07/21 19:51 risedronate sodium Allergy Unknown Verified 08/07/21 19:51 Sulfa (Sulfonamide Allergy Rash Verified 08/07/21 19:51 Antibiotics) tramadol Allergy Unknown Verified 08/07/21 19:51 - Social History Does the pt smoke?: No Smoking Status: Never smoker - Immunizations Immunizations are current?: Yes PD ED PE NORMAL - Vitals Vital signs reviewed: Yes - General General: Other (Drowsy, but arousable, will only speak 1 word quietly at a time. Appears confused. Cachectic.) - HEENT HEENT: PERRL, Other (dry lips and tongue) - Neck Neck: Supple, no meningeal sign - Cardiac Cardiac: RRR - Respiratory Respiratory: No respiratory distress, Clear bilaterally - Abdomen Abdomen: Soft, Non tender, Non distended - Back Back: No spinal TTP - Derm Derm: Warm and dry, No rash - Extremities Extremities: No tenderness to palpate, No edema - Neuro Neuro: No motor deficit, No sensory deficit Results - Vitals Vitals: Vital Signs - 24 hr 10/08/22 10/08/22 10/08/22 17:26 17:58 18:28 Temperature 37.1 C Heart Rate 96 90 86 Respiratory 31 H 26 H 23 Rate Blood Pressure 82/60 L 88/61 L 72/50 L O2 Saturation 96 94 97 10/08/22 10/08/22 19:00 19:37 Temperature Heart Rate 96 91 Respiratory 28 H 26 H Rate Blood Pressure 80/58 L 91/64 O2 Saturation 99 99 Oxygen O2 Source Room air - Labs Labs: Laboratory Tests 10/08/22 10/08/22 10/08/22 17:41 17:46 17:56 WBC 20.5 H RBC 3.93 L Hgb 10.1 L Hct 33.0 L MCV 84.0 MCH 25.7 L MCHC 30.6 L RDW 14.5 Plt Count 208 MPV 10.5 Neut # (Auto) Not Reportable Lymph # (Auto) Not Reportable [place] # (Auto) Not Reportable Eos # (Auto) Not Reportable Baso # (Auto) Not Reportable Absolute Nucleated RBC Not Reportable Total Counted 100 Band Neuts % (Manual) 10 Abnorm Lymph % (Manual) 0 Nucleated RBC % Not Reportable Neutrophils # (Manual) 18.7 H Lymphocytes # (Manual) 1.0 L Monocytes # (Manual) 0.8 Eosinophils # (Manual) 0.0 Basophils # (Manual) 0.0 Differential Comment MANUAL DIFFERENTIAL WBC Morphology 1+ TOXIC GRANULATION Platelet Estimate NORMAL (130-450,000) Platelet Morphology NORMAL APPEARANCE RBC Morph Micro Appear NORMAL APPEARANCE PT INR APTT Sodium Potassium Chloride Carbon Dioxide Anion Gap BUN Creatinine Estimated GFR (MDRD) Glucose Lactic Acid Calcium Total Bilirubin AST ALT Alkaline Phosphatase Total Protein Albumin Globulin Albumin/Globulin Ratio Lipase Urine Color YELLOW Urine Clarity TURBID Urine pH 7.5 Ur Specific [place] 1.020 Urine Protein >=300 H Urine Glucose (UA) NEGATIVE Urine Ketones TRACE Urine Occult Blood LARGE H Urine Nitrite NEGATIVE Urine Bilirubin NEGATIVE Urine Urobilinogen 1 (NORMAL) Ur Leukocyte Esterase SMALL H Urine RBC 11-25 H Urine WBC >25 H Ur Squamous Epith Cells RARE Squamous Urine Bacteria Many H Ur Microscopic Review INDICATED Urine Culture Comments INDICATED Nasal Adenovirus (PCR) NOT DETECTED Nasal B. parapertussis DNA (PCR) NOT DETECTED Nasal Coronavir 229E PCR NOT DETECTED Nasal Coronavir HKU1 PCR NOT DETECTED Nasal Coronavir NL63 PCR NOT DETECTED Nasal Coronavir OC43 PCR NOT DETECTED Nasal Enterovir/Rhinovir PCR NOT DETECTED Nasal Influenza B PCR NOT DETECTED Nasal Influenza A PCR NOT DETECTED Nasal Parainfluen 1 PCR NOT DETECTED Nasal Parainfluen 2 PCR NOT DETECTED Nasal Parainfluen 3 PCR NOT DETECTED Nasal Parainfluen 4 PCR NOT DETECTED Nasal RSV (PCR) DETECTED A Nasal B.pertussis DNA PCR NOT DETECTED Nasal C.pneumoniae (PCR) NOT DETECTED Reza Human Metapneumo PCR NOT DETECTED Nasal M.pneumoniae (PCR) NOT DETECTED Nasal SARS-CoV-2 (PCR) NOT DETECTED 10/08/22 10/08/22 10/08/22 17:56 17:56 17:56 WBC RBC Hgb Hct MCV MCH MCHC RDW Plt Count MPV Neut # (Auto) Lymph # (Auto) [place] # (Auto) Eos # (Auto) Baso # (Auto) Absolute Nucleated RBC Total Counted Band Neuts % (Manual) Abnorm Lymph % (Manual) Nucleated RBC % Neutrophils # (Manual) Lymphocytes # (Manual) Monocytes # (Manual) Eosinophils # (Manual) Basophils # (Manual) Differential Comment WBC Morphology Platelet Estimate Platelet Morphology RBC Morph Micro Appear PT 14.5 H INR 1.3 H APTT 28.4 Sodium 142 Potassium 3.8 Chloride 100 L Carbon Dioxide 31 Anion Gap 11.0 BUN 33 H Creatinine 1.1 H Estimated GFR (MDRD) 47 L Glucose 109 H Lactic Acid 2.6 H Calcium 9.2 Total Bilirubin 1.1 H AST 14 ALT < 10 L Alkaline Phosphatase 56 Total Protein 5.5 L Albumin 2.7 L Globulin 2.8 Albumin/Globulin Ratio 1.0 Lipase 21 L Urine Color Urine Clarity Urine pH Ur Specific [place] Urine Protein Urine Glucose (UA) Urine Ketones Urine Occult Blood Urine Nitrite Urine Bilirubin Urine Urobilinogen Ur Leukocyte Esterase Urine RBC Urine WBC Ur Squamous Epith Cells Urine Bacteria Ur Microscopic Review Urine Culture Comments Nasal Adenovirus (PCR) Nasal B. parapertussis DNA (PCR) Nasal Coronavir 229E PCR Nasal Coronavir HKU1 PCR Nasal Coronavir NL63 PCR Nasal Coronavir OC43 PCR Nasal Enterovir/Rhinovir PCR Nasal Influenza B PCR Nasal Influenza A PCR Nasal Parainfluen 1 PCR Nasal Parainfluen 2 PCR Nasal Parainfluen 3 PCR Nasal Parainfluen 4 PCR Nasal RSV (PCR) Nasal B.pertussis DNA PCR Nasal C.pneumoniae (PCR) Reza Human Metapneumo PCR Nasal M.pneumoniae (PCR) Nasal SARS-CoV-2 (PCR) - Rads (name of study) cxr Radiology: Final report received, See rad report PD Medical Decision Making - ED course Complexity details: reviewed results, re-evaluated patient, considered differential, d/w patient, d/w biometrics consultant ED course: 87-year-old female with hypotension and apparent urosepsis. Given IV Rocephin, IV fluids. Blood pressure improved. She is DNR, selective treatments. She has a white count of 20,000. 18,000 neutrophils. Her lactic acid is 2.6, creatinine 1.1 urinalysis consistent with UTI. Respiratory PCR positive for RSV. Chest x-ray does not show any evidence of pneumonia. We will admit the patient for continued IV fluids and antibiotics. Discussed the case with the hospitalist, Dr. George, who accepts. This document was made in part using voice recognition software. While efforts are made to proofread this document, sound alike and grammatical errors may occur. Departure - Departure Disposition: 66 [facility] DC/Xfer Clinical Impression: RSV (respiratory syncytial virus infection) Sepsis Qualifiers: Sepsis type: sepsis due to unspecified organism Sepsis acute organ dysfunction status: unspecified Qualified Code(s): A41.9 - Sepsis, unspecified organism UTI (urinary tract infection) Qualifiers: Urinary tract infection type: acute cystitis Hematuria presence: without hematuria Qualified Code(s): N30.00 - Acute cystitis without hematuria Hypotension Qualifiers: Hypotension type: unspecified hypotension type Qualified Code(s): I95.9 - Hypotension, unspecified Condition: Stable Discharge Date/Time: 10/08/22 22:23
[2022-10-08 18:07] LABS: BASOPHILS % (AUTO) 0.4 %; EOSINOPHILS % (AUTO) 0.5 %; HGB - HEMOGLOBIN 10.1 g/dL (12.0-16.0); LYMPHOCYTES % (AUTO) 2.8 %; MEAN CORPUSCULAR HEMOGLOBIN 25.7 pg (27.0-31.0); MEAN CORPUSCULAR HGB CONC 30.6 g/dL (32.0-36.0); MEAN PLATELET VOLUME 10.5 fL (7.9-10.8); MONOCYTES % (AUTO) 5.1 %; NEUTROPHILS % (AUTO) 90.5 %; PLT - PLATELET COUNT 208 10^3/uL (130-450); RED BLOOD COUNT 3.93 10^6/uL (4.20-5.40); RED CELL DISTRIBUTION WIDTH 14.5 % (12.0-15.0); WHITE BLOOD COUNT 20.5 x10^3/uL (4.8-10.8)
[2022-10-08 18:18] LABS: ABNORMAL LYMPHS % (MANUAL) 0 %; ALBUMIN 2.7 g/dL (3.2-5.5); ALKALINE PHOSPHATASE 56 IU/L (42-121); ALT ALANINE AMINOTRANSFERASE < 10 IU/L (10-60); AST ASPARTATE AMINOTRANSFERASE 14 IU/L (10-42); BILIRUBIN,TOTAL 1.1 mg/dL (0.2-1.0); BUN - BLOOD UREA NITROGEN 33 mg/dL (6-20); CALCIUM 9.2 mg/dL (8.5-10.3); CARBON DIOXIDE - CO2 31 mmol/L (21-32); CHLORIDE 100 mmol/L (101-111); CREATININE 1.1 mg/dL (0.4-1.0); GFR - MDRD 47 (>89); GLUCOSE 109 mg/dL (70-100); LACTIC ACID, VENOUS 2.6 mmol/L (0.5-2.2); LIPASE 21 U/L (22-51); POTASSIUM 3.8 mmol/L (3.5-5.0); SODIUM 142 mmol/L (135-145); TOTAL PROTEIN 5.5 g/dL (6.7-8.2)
[2022-10-08 18:21] LABS: GLUCOSE, URINE (UA) NEGATIVE (NEGATIVE); KETONES,URINE (UA) TRACE mg/dL (NEGATIVE); LEUKOCYTE ESTERASE, URINE SMALL (NEGATIVE); NITRITE,URINE NEGATIVE (NEGATIVE); OCCULT BLOOD,URINE LARGE (NEGATIVE); PH,URINE 7.5 PH (5.0-7.5); PROTEIN,URINE >=300 mg/dL (NEGATIVE); UROBILINOGEN,URINE 1 (NORMAL) E.U./dL (NORMAL)
[2022-10-08 18:22] LABS: INR 1.3 (0.8-1.2); PT - PROTHROMBIN TIME 14.5 secs (9.9-12.6)
[2022-10-08 18:26] LABS: CLARITY,URINE TURBID (CLEAR)
[2022-10-08 18:28] LABS: BILIRUBIN,URINE NEGATIVE (NEGATIVE); ICTOTEST,URINE NEGATIVE
[2022-10-08 18:29] LABS: BACTERIA,URINE Many /HPF (None Seen); SQUAMOUS EPITHELIAL CELL,UR RARE Squamous (<= Few); WBC,URINE >25 /HPF (0-5)
[2022-10-08 18:29] LABS: PARTIAL THROMBOPLASTIN TIME 28.4 secs (24.9-33.3)
--- NOTE | 2022-10-08 18:35 | XRAY Report ---
PROCEDURE: Chest 1 View X-Ray INDICATIONS: cough TECHNIQUE: One view of the chest was acquired. COMPARISON: None. FINDINGS: Surgical changes and devices: None. Lungs and pleura: Hyperinflation and chronic interstitial changes Mediastinum: Mediastinal contours appear normal. Heart size is normal. Bones and chest wall: Osteopenia and old left proximal humeral fracture IMPRESSION: No acute cardiopulmonary findings Reviewed by: Alin Wren MD on 10/08/2022 5:34 PM [place] Approved by: Alin Wren MD on 10/08/2022 5:34 PM [place] Station ID: [id number]
[2022-10-08 18:58] LABS: B. PARAPERTUSSIS- RESP PCR PAN NOT DETECTED; B. PERTUSSIS- RESP PCR PANEL NOT DETECTED; C. PNEUMONIAE- RESP PCR PANEL NOT DETECTED; CORONAVIRUS 229E-RESP PCR NOT DETECTED; CORONAVIRUS HKU1-RESP PCR NOT DETECTED; CORONAVIRUS NL63-RESP PCR NOT DETECTED; CORONAVIRUS OC43-RESP PCR NOT DETECTED; HUMAN METAPNEUMOVIRUS NOT DETECTED; INFLUENZA A- RESP PCR PANEL NOT DETECTED; INFLUENZA B - RESP PCR PANEL NOT DETECTED; M. PNEUMONIAE- RESP PCR PANEL NOT DETECTED; PARAINFLUENZA VIRUS 1 NOT DETECTED; PARAINFLUENZA VIRUS 2 NOT DETECTED; PARAINFLUENZA VIRUS 3 NOT DETECTED; PARAINFLUENZA VIRUS 4 NOT DETECTED; RHINOVIRUS/ENTEROVIRUS NOT DETECTED; RSV- RESP PCR PANEL DETECTED; SARS-CoV-2 -RESP PCR PANEL NOT DETECTED
[2022-10-08 18:59] LABS: BAND NEUTROPHILS % (MANUAL) 10 %; DIFFERENTIAL COMMENT MANUAL DIFFERENTIAL; LYMPHOCYTES % (MANUAL) 5 %; MONOCYTES # (MANUAL) 0.8 10^3/uL (0.0-1.0); NEUTROPHILS # (MANUAL) 18.7 10^3/uL (1.5-6.6); PLATELET ESTIMATE, MANUAL NORMAL (130-450,000) (NORMAL); PLATELET MORPHOLOGY NORMAL APPEARANCE (NORMAL); RBC MORPHOLOGY (MULTIPLE) NORMAL APPEARANCE (NORMAL); WBC MORPHOLOGY (MULTIPLE) 1+ TOXIC GRANULATION (NORMAL)
[2022-10-08] MEDS ORDERED: cefTRIAXone 1 GM VIAL IVP STA (19:01)
[2022-10-08] MEDS ORDERED: SODIUM CHLORIDE 0.9% 500 ML IV STA (19:02)
[2022-10-08] MEDS ORDERED: SODIUM CHLORIDE FLUSH 0.9% 10 ML SYRINGE IVP PRN (20:03)
[2022-10-08] MEDS ORDERED: ONDANSETRON 4 MG/2 ML VIAL IVP PRN (20:03)
--- NOTE | 2022-10-08 20:26 | HISTORY & PHYSICAL EXAMINATION ---
Chief Complaint - Chief Complaint Chief Complaint: Weakness, AMS History of Present Illness - History of Present Illness HPI Comment/Other: 81 y old female with PMH HTN, HLP BIBA fron [facility] due to weakness and AMS. Pt is wheelchair bound at baseline. Pt is unable to porovide history at this time so most of history is from ER physician and ER record.Per EMS, her DINAH was in 60`s systolic. She was given IVF. Pt is alert and awake at the time of my examination.Able to move all extremities. Pt also has cough On Presentaion, pt was quite hypotensive. She was given NS 500 cc IV bolus X 1. She is currently getting NS @ 150 cc/h. Her systolic BP is 91. Labs showed WBC 20, lactic acid 2.2. UA showed UTI RSV positive CXR showed no acute abnormalities Pt is DNR Pt is being admitted due to Severe sepsis, UTI, AMS, weakness, RSV infection. History - Past Medical History Cardiovascular: reports: Hypertension, High cholesterol Respiratory: reports: None Endocrine/Autoimmune: reports: None Psych: reports: None Musculoskeletal: reports: Osteoarthritis, Osteoporosis, Fatigue MRSA Hx?: No - Past Surgical History /[employer] HAND: reports: Hysterectomy Meds/Allgy - Home Medications Home Medications: Ambulatory Orders Medication Instructions Recorded Confirmed Aspirin 325 mg PO DAILY 01/26/17 01/26/17 Carbidopa/Levodopa [Carbidopa-Levo 25 - 100 mg PO QID 01/26/17 03/28/17 ER 25-100 Tab] Cholecalciferol (Vitamin D3) 2,000 mg PO DAILY 01/26/17 01/26/17 [Vitamin D3] Cyanocobalamin (Vitamin B-12) 1 tab PO DAILY 01/26/17 01/26/17 [Vitamin B-12] Estradiol [Estrace] 0.1 mg PO 01/26/17 Ibuprofen [Motrin] 600 mg PO Q6H 01/26/17 01/26/17 Ipratropium Frannie BID 01/26/17 Mirtazapine 7.5 mg PO DAILY 01/26/17 01/26/17 Pramipexole [Mirapex] 1 tab PO DAILY 01/26/17 01/26/17 Tamsulosin [Flomax] 1 tab PO DAILY 01/26/17 01/26/17 hydroCHLOROthiazide 12.5 mg PO DAILY 01/26/17 01/26/17 [Hydrochlorothiazide] Oxycodone HCl/Acetaminophen 1 - 2 tab PO Q4H PRN #20 tablet 03/28/17 [Percocet 5-325 mg Tablet] cephALEXin [Keflex] 500 mg PO Q6H #20 cap 08/07/21 - Allergies Allergies/Adverse Reactions: Allergies Allergy/AdvReac Type Severity Reaction Status Date / Time alendronate sodium Allergy Unknown Verified 08/07/21 19:51 [From Fosamax] amoxicillin Allergy Unknown Verified 08/07/21 19:51 oxycodone Allergy Unknown Verified 08/07/21 19:51 risedronate sodium Allergy Unknown Verified 08/07/21 19:51 Sulfa (Sulfonamide Allergy Rash Verified 08/07/21 19:51 Antibiotics) tramadol Allergy Unknown Verified 08/07/21 19:51 Review of Systems - Constitutional Constitutional: reports: Weakness - Respiratory Respiratory: reports: Cough - Other Findings Other Findings: Unable to obtain due to AMS Exam - Vital Signs Vital Signs: Vital Signs x48h Temp Pulse Resp BP Pulse Ox 10/08/22 19:37 91 26 H 91/64 99 10/08/22 19:00 96 28 H 80/58 L 99 10/08/22 18:28 86 23 72/50 L 97 10/08/22 17:58 90 26 H 88/61 L 94 10/08/22 17:26 37.1 C 96 31 H 82/60 L 96 - Physical Exam General Appearance: positive: No acute distress, Alert Eyes Bilateral: positive: Normal inspection ENT: positive: ENT inspection nml Neck: positive: Nml inspection Respiratory: positive: No respiratory distress, Breath sounds nml Cardiovascular: positive: Regular rate & rhythm Abdomen: positive: Non-tender, Nml bowel sounds Skin: positive: No rash Extremities: positive: No pedal edema Neurologic/Psychiatric: positive: Motor nml, Disoriented to place, Disoriented to time, Weakness Conclusion/Plan - Lab Results Fish Bones: 10/08/22 17:56 10/08/22 17:56 - Other Other Results/Comments: A: Severe sepsis UTI AMS Weakness RSV infection Hypotension Leukocytosis HTN HLP DNR status Plan; Admit in med surg Follow cultures NS @ 125 cc/h Start Rocephin 1 gram iv daily Seriel lactic acid Repeat CBC, BMP in am NPO Swallow screen by RN Monitor mental status Neuro checks Supportive care DVT prophylaxic: SCD Code status: DNR Pt is admitted as inpatientas more than 2 midnight stay is expected
[2022-10-08 22:12] LABS: LACTIC ACID, VENOUS 2.1 mmol/L (0.5-2.2)
[2022-10-08] MEDS: SODIUM CHLORIDE 0.9% 1,000 ML IV SCH (22:57)
[2022-10-09] MEDS: SODIUM CHLORIDE FLUSH 0.9% 10 ML SYRINGE IVP SCH ×4 (01:39→23:58)
[2022-10-09] MEDS: SODIUM CHLORIDE 0.9% 1,000 ML IV SCH ×3 (05:41→22:57)
[2022-10-09] MEDS: cefTRIAXone 1 GM in SODIUM CHLORIDE 0.9% MINIBAG 100 ML IV SCH (09:10)
[2022-10-09] MEDS ORDERED: NITROGLYCERIN SL 0.4 MG TABLET SL ONE (11:27)
[2022-10-09] MEDS: ACETAMINOPHEN 325 MG TABLET PO PRN ×2 (11:56→18:41)
--- NOTE | 2022-10-09 12:14 | PHARMACY PROGRESS NOTE ---
- Best Possible Medication History Admit Date and Time: 10/08/222002 Processed by: Pharmacy Medication History completed: Yes Secondary Source(s): Facility MAR as ONLY source As the person ultimately responsible for medication therapy, providers are able to order a medication from an existing home medication list in [facility] via the "Reconcile Routine" prior to Confirmation of that medication by patient support specialist. Such practice is discouraged except when the physician, in their clinical judgment, deems that a medical need exists for a medication without regard to previous use.
--- NOTE | 2022-10-09 13:07 | PROVIDER PROGRESS NOTE ---
Assessment/Plan - Problem List (1) Chest pain Assessment/Plan: At midmorning today, the patient developed chest pain in the center chest that she rated 8/10. I evaluated the patient at this time during ongoing pain: She could not point to where her pain was (which she apparently did show to her daughter and granddaughter who are at bedside). She could not take a deep breath, due to the pain, suggesting that it is pleuritic pain. There was worsening tenderness with palpation of the anterior chest as well. With the daughter and granddaughter at bedside, I obtained history that the patient had a stress test many years ago and that it was WNL. Plan: Will order sublingual nitroglycerin as needed Cycle troponins Obtain STAT EKG>> Her stat EKG was done and showed (my interpretation): A. fib versus NSR with PACs (she has very low voltage and the P waves are not definitely seen and has a tremor from her Parkinson's therefore A. fib is suggested). Low voltage. Normal QRS axis. PVC. QS waves V1 through V3 consistent with an old anterior NE. There is no prior EKG done at this facility, available for comparison. We will continue with Tylenol for pain control, and try to avoid nercotics that may add to her somnolence and confusion. (2) Severe sepsis Improving in terms of mental status, more alert. Her CBC is still pending today. Plan: Continue with IV antibiotics and IV fluids (3) UTI Abnormal UA. This appears to be source of the sepsis and AMS. Plan: Continue with IV antibiotics and IV fluids (4) RSV infection Her chest x-ray did not show any infiltrate however the daughter tells me that the patient complains of a cough that she cannot expectorate She may have evidence of a PNA now on chest x-ray, after having received IV fluids since yesterday. Plan: Repeat chest x-ray>> This showed a left sided pneumonia. We will continue with iv Ceftriaxone and now add IV Zithromax Continue with droplet isolation and supportive care. Will start Mucinex. (5) Hypotension BP is 80-90 syst This low BP persists and is concerning for having sepsis. However the patient is very small, 5 foot 2, 99 pounds and may now run a "soft" blood pressure. Plan: Continue with IV hydration. Will obtain an Echocardiogram Her meds are not yet reconciled by pharmacy, will hold any meds that drop blood pressure (6) Hx of HTN As per history. Plan: Her meds are not yet reconciled by pharmacy, will hold any meds that drop her blood pressure (7) Parkinson's disease with behavioral disturbances The daughter reports that the patient normally has hallucinations, even when she is at her best on her Parkinson treatment Plan: Will resume her usual Parkinsons and any psych medications, once they are reconciled by pharmacy (8) AMS Improved/resolved. She is not as somnolent, is awake, she only answers minimally to strangers but more easily to family, according to the daughter. Plan: Continue to treat the underlying causes for her confusion and somnolence. - Current Meds Current Meds: Current Medications Generic Name Dose Route Start Last Admin Trade Name Freq PRN Reason Stop Dose Admin Acetaminophen 650 mg 10/08/22 20:03 10/09/22 11:56 Acetaminophen 325 Mg Tablet PO 650 mg Q4HR PRN Administration Pain 1 to 4, or Fever Sodium Chloride 1,000 mls @ 125 mls/hr 10/08/22 21:00 10/09/22 05:41 Normal Saline 0.9% IV 125 mls/hr .Q8H MAVIS Administration Ceftriaxone Sodium 1 gm/ 100 mls @ 200 mls/hr 10/09/22 09:00 10/09/22 09:40 Sodium Chloride IV Infused DAILY MAVIS Infusion Sodium Chloride 10 ml 10/09/22 01:00 10/09/22 09:10 Sodium Chloride Flush 0.9% 10 Ml Syringe IVP 10 ml 0100,0900,1700 MAVIS Administration - Lab Result Fish Bone Diagrams: 10/08/22 17:56 10/08/22 17:56 - EKG Results EKG Comparison: Old EKG unavailable EKG Findings: (My interpretation): A. fib versus NSR with PACs (she has very low voltage and the P waves are not definitely seen and has a tremor from her Parkinson's therefore A. fib is suggested). Low voltage. Normal QRS axis. PVC. QS waves V1 through V3 consistent with an old anterior NE. There is no prior EKG done at this facility, available for comparison. - Additional Planning My Orders: My Active Orders 10/09/22 Breakfast DIET [Dysphagia - Minced and Moist] [DIET] 10/09/22 12:54 TROPONIN I HIGH SENSITIVITY [IAI] Stat 10/09/22 12:56 Echo Transthoracic Complete [ECHO] Routine 10/09/22 16:00 TROPONIN I HIGH SENSITIVITY [IAI] Timed 10/10/22 05:00 BMP - BASIC METABOLIC PANEL [CHEM] DAILYLAB CBC - COMP BLD CT W/AUTO DIFF [HEME] DAILYLAB 10/11/22 05:00 BMP - BASIC METABOLIC PANEL [CHEM] DAILYLAB CBC - COMP BLD CT W/AUTO DIFF [HEME] DAILYLAB 10/12/22 05:00 BMP - BASIC METABOLIC PANEL [CHEM] DAILYLAB CBC - COMP BLD CT W/AUTO DIFF [HEME] DAILYLAB Subjective - Subjective Patient Reports: Cough, Chest Pain Objective Vital Signs: Vital Signs - 24 hr 10/08/22 10/08/22 10/08/22 17:26 17:58 18:28 Temperature 37.1 C Heart Rate 96 90 86 Heart Rate [ Brachial] Respiratory 31 H 26 H 23 Rate Blood Pressure 82/60 L 88/61 L 72/50 L Blood Pressure [Left Brachial artery] Blood Pressure [Right Brachial artery] O2 Saturation 96 94 97 10/08/22 10/08/22 10/08/22 19:00 19:37 22:04 Temperature 36.4 C L Heart Rate 96 91 Heart Rate [ 96 Brachial] Respiratory 28 H 26 H 14 Rate Blood Pressure 80/58 L 91/64 Blood Pressure 83/56 L [Left Brachial artery] Blood Pressure [Right Brachial artery] O2 Saturation 99 99 96 10/09/22 10/09/22 10/09/22 01:08 07:31 11:07 Temperature 36.6 C 37.0 C Heart Rate Heart Rate [ 89 106 H 96 Brachial] Respiratory 23 16 18 Rate Blood Pressure Blood Pressure [Left Brachial artery] Blood Pressure 94/63 94/61 82/54 L [Right Brachial artery] O2 Saturation 95 97 95 10/09/22 10/09/22 10/09/22 11:15 11:18 11:22 Temperature Heart Rate Heart Rate [ 116 H 109 H 108 H Brachial] Respiratory 18 19 18 Rate Blood Pressure Blood Pressure [Left Brachial artery] Blood Pressure 90/57 L 85/59 L 90/57 L [Right Brachial artery] O2 Saturation 95 95 96 10/09/22 11:57 Temperature Heart Rate 99 Heart Rate [ Brachial] Respiratory Rate Blood Pressure 90/57 L Blood Pressure [Left Brachial artery] Blood Pressure [Right Brachial artery] O2 Saturation Oxygen O2 Source Room air I&O (Last 24 Hrs): Intake and Output Totals x24h 10/07/22 10/08/22 10/09/22 23:59 23:59 23:59 Intake Total 2240 400 Balance 2240 400 General: Alert, Mild distress (from current pleuritic CP) HEENT: Other (Dry oral mucosa) Neck: Supple, No JVD Neuro: Alert, Non Focal, Other (NEZ PERCE, Minimally communicative) Cardiovascular: No murmurs Respiratory: Rales (Left side greater than right at base) Abdomen: Normal bowel sounds, Soft Extremities: No clubbing, No edema, Other (Muscle wasting) - Results Results: Laboratory Results WBC 20.5 x10^3/uL (4.8-10.8) H 10/08/22 17:56 RBC 3.93 10^6/uL (4.20-5.40) L 10/08/22 17:56 Hgb 10.1 g/dL (12.0-16.0) L 10/08/22 17:56 Hct 33.0 % (37.0-47.0) L 10/08/22 17:56 MCV 84.0 fL (81.0-99.0) 10/08/22 17:56 MCH 25.7 pg (27.0-31.0) L 10/08/22 17:56 MCHC 30.6 g/dL (32.0-36.0) L 10/08/22 17:56 RDW 14.5 % (12.0-15.0) 10/08/22 17:56 Plt Count 208 10^3/uL (130-450) 10/08/22 17:56 MPV 10.5 fL (7.9-10.8) 10/08/22 17:56 Neut # (Auto) Not Reportable 10/08/22 17:56 Lymph # (Auto) Not Reportable 10/08/22 17:56 Blanco # (Auto) Not Reportable 10/08/22 17:56 Eos # (Auto) Not Reportable 10/08/22 17:56 Baso # (Auto) Not Reportable 10/08/22 17:56 Absolute Nucleated RBC Not Reportable 10/08/22 17:56 Total Counted 100 10/08/22 17:56 Band Neuts % (Manual) 10 % (0-10) 10/08/22 17:56 Abnorm Lymph % (Manual) 0 % 10/08/22 17:56 Nucleated RBC % Not Reportable 10/08/22 17:56 Neutrophils # (Manual) 18.7 10^3/uL (1.5-6.6) H 10/08/22 17:56 Lymphocytes # (Manual) 1.0 10^3/uL (1.5-3.5) L 10/08/22 17:56 Monocytes # (Manual) 0.8 10^3/uL (0.0-1.0) 10/08/22 17:56 Eosinophils # (Manual) 0.0 10^3/uL (0-0.7) 10/08/22 17:56 Basophils # (Manual) 0.0 10^3/uL (0-0.1) 10/08/22 17:56 Differential Comment MANUAL DIFFERENTIAL 10/08/22 17:56 WBC Morphology 1+ TOXIC GRANULATION (NORMAL) 10/08/22 17:56 Platelet Estimate NORMAL (130-450,000) (NORMAL) 10/08/22 17:56 Platelet Morphology NORMAL APPEARANCE (NORMAL) 10/08/22 17:56 RBC Morph Micro Appear NORMAL APPEARANCE (NORMAL) 10/08/22 17:56 PT 14.5 secs (9.9-12.6) H 10/08/22 17:56 INR 1.3 (0.8-1.2) H 10/08/22 17:56 APTT 28.4 secs (24.9-33.3) 10/08/22 17:56 Sodium 142 mmol/L (135-145) 10/08/22 17:56 Potassium 3.8 mmol/L (3.5-5.0) 10/08/22 17:56 Chloride 100 mmol/L (101-111) L 10/08/22 17:56 Carbon Dioxide 31 mmol/L (21-32) 10/08/22 17:56 Anion Gap 11.0 (6-13) 10/08/22 17:56 BUN 33 mg/dL (6-20) H 10/08/22 17:56 Creatinine 1.1 mg/dL (0.4-1.0) H 10/08/22 17:56 Estimated GFR (MDRD) 47 (>89) L 10/08/22 17:56 Glucose 109 mg/dL (70-100) H 10/08/22 17:56 Lactic Acid 1.4 mmol/L (0.5-2.2) 10/09/22 01:12 Calcium 9.2 mg/dL (8.5-10.3) 10/08/22 17:56 Total Bilirubin 1.1 mg/dL (0.2-1.0) H 10/08/22 17:56 AST 14 IU/L (10-42) 10/08/22 17:56 ALT < 10 IU/L (10-60) L 10/08/22 17:56 Alkaline Phosphatase 56 IU/L (42-121) 10/08/22 17:56 Total Protein 5.5 g/dL (6.7-8.2) L 10/08/22 17:56 Albumin 2.7 g/dL (3.2-5.5) L 10/08/22 17:56 Globulin 2.8 g/dL (2.1-4.2) 10/08/22 17:56 Albumin/Globulin Ratio 1.0 (1.0-2.2) 10/08/22 17:56 Lipase 21 U/L (22-51) L 10/08/22 17:56 Urine Color YELLOW 10/08/22 17:41 Urine Clarity TURBID (CLEAR) 10/08/22 17:41 Urine pH 7.5 PH (5.0-7.5) 10/08/22 17:41 Ur Specific [place] 1.020 (1.002-1.030) 10/08/22 17:41 Urine Protein >=300 mg/dL (NEGATIVE) H 10/08/22 17:41 Urine Glucose (UA) NEGATIVE mg/dL (NEGATIVE) 10/08/22 17:41 Urine Ketones TRACE mg/dL (NEGATIVE) 10/08/22 17:41 Urine Occult Blood LARGE (NEGATIVE) H 10/08/22 17:41 Urine Nitrite NEGATIVE (NEGATIVE) 10/08/22 17:41 Urine Bilirubin NEGATIVE (NEGATIVE) 10/08/22 17:41 Urine Urobilinogen 1 (NORMAL) E.U./dL (NORMAL) 10/08/22 17:41 Ur Leukocyte Esterase SMALL (NEGATIVE) H 10/08/22 17:41 Urine RBC 11-25 /HPF (0-5) H 10/08/22 17:41 Urine WBC >25 /HPF (0-5) H 10/08/22 17:41 Ur Squamous Epith Cells RARE Squamous (<= Few) 10/08/22 17:41 Urine Bacteria Many /HPF (None Seen) H 10/08/22 17:41 Ur Microscopic Review INDICATED 10/08/22 17:41 Urine Culture Comments INDICATED 10/08/22 17:41 Nasal Adenovirus (PCR) NOT DETECTED 10/08/22 17:46 Nasal B. parapertussis DNA (PCR) NOT DETECTED 10/08/22 17:46 Nasal Coronavir 229E PCR NOT DETECTED 10/08/22 17:46 Nasal Coronavir HKU1 PCR NOT DETECTED 10/08/22 17:46 Nasal Coronavir NL63 PCR NOT DETECTED 10/08/22 17:46 Nasal Coronavir OC43 PCR NOT DETECTED 10/08/22 17:46 Nasal Enterovir/Rhinovir PCR NOT DETECTED 10/08/22 17:46 Nasal Influenza B PCR NOT DETECTED 10/08/22 17:46 Nasal Influenza A PCR NOT DETECTED 10/08/22 17:46 Nasal Parainfluen 1 PCR NOT DETECTED 10/08/22 17:46 Nasal Parainfluen 2 PCR NOT DETECTED 10/08/22 17:46 Nasal Parainfluen 3 PCR NOT DETECTED 10/08/22 17:46 Nasal Parainfluen 4 PCR NOT DETECTED 10/08/22 17:46 Nasal RSV (PCR) DETECTED A 10/08/22 17:46 Nasal B.pertussis DNA PCR NOT DETECTED 10/08/22 17:46 Nasal C.pneumoniae (PCR) NOT DETECTED 10/08/22 17:46 Reza Human Metapneumo PCR NOT DETECTED 10/08/22 17:46 Nasal M.pneumoniae (PCR) NOT DETECTED 10/08/22 17:46 Nasal SARS-CoV-2 (PCR) NOT DETECTED 10/08/22 17:46
[2022-10-09] MEDS ORDERED: LIDOCAINE PATCH 5% TOP PRN (13:23)
[2022-10-09] MEDS: CARBIDOPA/LEVODOPA 25 MG/100 MG TABLET PO SCH ×3 (13:52→21:39)
[2022-10-09] MEDS: CARBIDOPA/LEVODOPA ER 25 MG/100 MG TABLET PO SCH ×2 (14:12→21:28)
--- NOTE | 2022-10-09 14:57 | XRAY Report ---
PROCEDURE: Chest 1 View X-Ray INDICATIONS: Pleuritic Chest pain, worsened cough TECHNIQUE: One view of the chest was acquired. COMPARISON: 10/08/2022 FINDINGS: Surgical changes and devices: None. Lungs and pleura: No pleural effusions or pneumothorax. Mild patchy left perihilar and basilar opaci ty. Mediastinum: Mediastinal contours appear normal. Heart size is normal. Bones and chest wall: No suspicious bony lesions. Overlying soft tissues appear unremarkable. IMPRESSION: Left lung pneumonia. Follow-up PA and lateral chest x-rays or chest CT is recommended to ensure resol ution, and to exclude underlying neoplasm. Reviewed by: Deidre Li MD on 10/09/2022 2:56 PM PST Approved by: Deidre Li MD on 10/09/2022 2:56 PM PST Station ID: [id number]
[2022-10-09] MEDS ORDERED: AZITHROMYCIN INJ 500 MG in SODIUM CHLORIDE 0.9% 250 ML IV STA (15:51)
[2022-10-09 16:01] LABS: BASOPHILS % (AUTO) 0.3 %; HCT - HEMATOCRIT 29.2 % (37.0-47.0); HGB - HEMOGLOBIN 8.8 g/dL (12.0-16.0); LYMPHOCYTES # (AUTO) 0.6 10^3/uL (1.5-3.5); LYMPHOCYTES % (AUTO) 7.4 %; MEAN CORPUSCULAR HEMOGLOBIN 25.3 pg (27.0-31.0); MEAN CORPUSCULAR HGB CONC 30.1 g/dL (32.0-36.0); MEAN CORPUSCULAR VOLUME 83.9 fL (81.0-99.0); MEAN PLATELET VOLUME 9.9 fL (7.9-10.8); MONOCYTES # (AUTO) 0.2 10^3/uL (0.0-1.0); MONOCYTES % (AUTO) 2.1 %; NEUTROPHILS % (AUTO) 89.9 %; PLT - PLATELET COUNT 114 10^3/uL (130-450); RED BLOOD COUNT 3.48 10^6/uL (4.20-5.40); RED CELL DISTRIBUTION WIDTH 14.9 % (12.0-15.0); WHITE BLOOD COUNT 7.8 x10^3/uL (4.8-10.8)
[2022-10-09 16:10] LABS: CALCIUM 8.3 mg/dL (8.5-10.3); CREATININE 0.6 mg/dL (0.4-1.0); POTASSIUM 3.1 mmol/L (3.5-5.0)
[2022-10-09] MEDS: guaiFENesin 600 MG TABLET PO SCH (21:28)
[2022-10-09] MEDS: METOPROLOL SUCCINATE 25 MG TABLET PO SCH (21:29)
[2022-10-09] MEDS: IPRATROPIUM BROMIDE NAS SCH (21:29)
--- NOTE | 2022-10-10 00:24 | PROVIDER PROGRESS NOTE ---
Hospitalist Cross-cover Note - Cross-Cover Note Cross-Cover Note: Called bY rn Stating KCL is 3.1 no replaced since afternoon, have ordered KCL 10 meq q one hour x 3 bags
[2022-10-10] MEDS: POTASSIUM CHLOR 10 MEQ/100 ML 10 MEQ/100 ML BAG IV SCH ×3 (00:49→03:05)
[2022-10-10 05:02] LABS: BASOPHILS % (AUTO) 0.2 %; EOSINOPHILS % (AUTO) 0.7 %; HCT - HEMATOCRIT 28.8 % (37.0-47.0); HGB - HEMOGLOBIN 8.7 g/dL (12.0-16.0); LYMPHOCYTES # (AUTO) 0.7 10^3/uL (1.5-3.5); LYMPHOCYTES % (AUTO) 11.5 %; MEAN CORPUSCULAR HEMOGLOBIN 25.4 pg (27.0-31.0); MEAN CORPUSCULAR HGB CONC 30.2 g/dL (32.0-36.0); MEAN CORPUSCULAR VOLUME 84.2 fL (81.0-99.0); MEAN PLATELET VOLUME 10.8 fL (7.9-10.8); MONOCYTES # (AUTO) 0.1 10^3/uL (0.0-1.0); MONOCYTES % (AUTO) 2.3 %; NEUTROPHILS # (AUTO) 4.9 10^3/uL (1.5-6.6); NEUTROPHILS % (AUTO) 84.8 %; PLT - PLATELET COUNT 97 10^3/uL (130-450); RED BLOOD COUNT 3.42 10^6/uL (4.20-5.40); WHITE BLOOD COUNT 5.7 x10^3/uL (4.8-10.8)
[2022-10-10 05:14] LABS: CALCIUM 8.4 mg/dL (8.5-10.3); CREATININE 0.5 mg/dL (0.4-1.0); POTASSIUM 3.8 mmol/L (3.5-5.0)
[2022-10-10] MEDS: CARBIDOPA/LEVODOPA 25 MG/100 MG TABLET PO SCH ×5 (06:14→21:06)
--- NOTE | 2022-10-10 08:41 | PROVIDER PROGRESS NOTE ---
Assessment/Plan - Problem List (1) Pneumonia Assessment/Plan: When she complained of a new cough and pleuritic chest pain yesterday 10/09, a chest x-ray was repeated and this showed a new pneumonia on the left side. She was already on ceftriaxone for UTI. Zithromax has been added Plan: Continue antibx Cont Mucinex Await cx results (2) Pleuritic chest pain Assessment/Plan: Yesterday the patient had several episodes of chest pain in the center chest that she rated 8/10. I evaluated the patient at this time during ongoing pain: She could not point to where her pain was (which she apparently did show to her daughter and granddaughter who are at bedside). She could not take a deep breath, due to the pain, suggesting that it is pleuritic pain. A CXR was done that showed a new pneumonia, seen after a day of iv hydration. There was worsening tenderness with palpation of the anterior chest as well. With the daughter and granddaughter at bedside, I obtained history that the patient had a stress test many years ago and that it was WNL. Will order sublingual nitroglycerin as needed Cycled troponins and these were entirely normal A stat EKG was done and showed A. fib versus NSR with PACs (she has very low voltage and the P waves are not definitely seen and has a tremor from her Parkinson's therefore A. fib is suggested). Low voltage. Normal QRS axis. PVC. QS waves V1 through V3 consistent with an old anterior SD. There is no prior EKG done at this facility, available for comparison. Plan: We will continue with Tylenol for pain control, and try to avoid nercotics that may add to her somnolence and confusion. (3) UTI Abnormal UA. This appeared to be source of the sepsis and AMS at presentation. Plan: Continue with IV antibiotics and IV fluids (4) RSV infection Her chest x-ray did not show any infiltrate at admission, however the daughter tells me that the patient complains of a cough that she cannot expectorate. The chest x-ray yesterday did show a new left-sided infiltrate. Mucinex was started. Plan: Cont Mucinex. (5) Hypotension BP is 80-90 syst Her "soft" BP persists and is consistent with sepsis and volume depletion. Plan: Continue with IV hydration. Will obtain an Echocardiogram Will hold any meds that drop blood pressure (6) Hx of HTN As per history. Plan: Will hold any meds that drop her blood pressure (7) Parkinson's disease with behavioral disturbances The daughter reports that the patient normally has hallucinations, even when she is at her best on her Parkinson treatment Plan: Continue her usual Parkinsons and any psych medications (8) AMS Improved/resolved. She is not as somnolent, is awake, she only answers minimally to strangers but more easily to family, according to the daughter. Plan: Continue to treat the underlying causes for her confusion and somnolence, her infection and dehydration.. (9) Severe sepsis Resolved with improved mental sttus and WBC Plan: Continue with IV antibiotics and IV fluids - Current Meds Current Meds: Current Medications Generic Name Dose Route Start Last Admin Trade Name Freq PRN Reason Stop Dose Admin Acetaminophen 650 mg 10/08/22 20:03 10/09/22 18:41 Acetaminophen 325 Mg Tablet PO 650 mg Q4HR PRN Administration Pain 1 to 4, or Fever Carbidopa/Levodopa 1 tab 10/09/22 14:00 10/09/22 21:28 Carbidopa/Levodopa Er 25 Mg/100 Mg Tablet PO 1 tab BID MAVIS Administration Carbidopa/Levodopa 1 tab 10/09/22 14:00 10/10/22 06:14 Carbidopa/Levodopa 25 Mg/100 Mg Tablet PO 1 tab 5XD MAVIS Administration Guaifenesin 600 mg 10/09/22 21:00 10/09/22 21:28 Guaifenesin 600 Mg Tablet PO 600 mg BID MAVIS Administration Sodium Chloride 1,000 mls @ 125 mls/hr 10/08/22 21:00 10/09/22 22:57 Normal Saline 0.9% IV 125 mls/hr .Q8H MAVIS Administration Ceftriaxone Sodium 1 gm/ 100 mls @ 200 mls/hr 10/09/22 09:00 10/09/22 09:40 Sodium Chloride IV Infused DAILY MAVIS Infusion Metoprolol Succinate 25 mg 10/09/22 21:00 10/09/22 21:29 Metoprolol Succinate 25 Mg Tablet PO Not Given QPM MAVIS Ipratropium 2 each 10/09/22 21:00 10/09/22 21:29 [place] [Ipratropium RASHI Not Given [place]] 15 Ml BID MAVIS [place] Sodium Chloride 10 ml 10/09/22 01:00 10/09/22 23:58 Sodium Chloride Flush 0.9% 10 Ml Syringe IVP Not Given 0100,0900,1700 MAVIS - Lab Result Fish Bone Diagrams: 10/10/22 04:46 10/10/22 04:46 - Additional Planning My Orders: My Active Orders 10/09/22 13:23 Lidocaine Patch 5% [Lidoderm Patch] 1 patch TOP DAILY PRN 10/09/22 14:00 Carbidopa/Levodopa 25/100 [Sinemet 25 mg/100 mg] 1 tab PO 5XD Carbidopa/Levodopa ER 25/100 [Sinemet Cr 25 mg/100 mg] 1 tab PO BID 10/09/22 21:00 Metoprolol Succinate [Toprol Xl] 25 mg PO QPM Patient Own Med [Patient Own Medication] 2 each RASHI BID guaiFENesin [Mucinex] 600 mg PO BID 10/10/22 05:00 MAGNESIUM [CHEM] Routine 10/10/22 08:00 Multivitamin [Theragran] 1 tab PO DAILYWM 10/10/22 09:00 Aspirin EC [Ecotrin] 81 mg PO DAILY Azithromycin Inj [Zithromax Inj] 500 mg Sodium Chloride 0.9% [Normal Saline 0.9%] 250 ml IV DAILY Cholecalciferol [Vitamin D3] 25 mcg PO DAILY 10/10/22 12:56 Echo Transthoracic Complete [ECHO] Routine 10/11/22 05:00 BMP - BASIC METABOLIC PANEL [CHEM] DAILYLAB CBC - COMP BLD CT W/AUTO DIFF [HEME] DAILYLAB 10/12/22 05:00 BMP - BASIC METABOLIC PANEL [CHEM] DAILYLAB CBC - COMP BLD CT W/AUTO DIFF [HEME] DAILYLAB Subjective - Subjective Nursing Reports: Other (RN reports she is slightly more alert, has fewer complaints of chest pain, appears to have an appetite) Objective Vital Signs: Vital Signs - 24 hr 10/09/22 10/09/22 10/09/22 11:07 11:15 11:18 Temperature Heart Rate Heart Rate [ 96 116 H 109 H Brachial] Respiratory 18 18 19 Rate Blood Pressure Blood Pressure 82/54 L 90/57 L 85/59 L [Right Brachial artery] O2 Saturation 95 95 95 10/09/22 10/09/22 10/09/22 11:22 11:57 15:35 Temperature 37.1 C Heart Rate 99 Heart Rate [ 108 H 102 H Brachial] Respiratory 18 20 Rate Blood Pressure 90/57 L Blood Pressure 90/57 L 80/49 L [Right Brachial artery] O2 Saturation 96 97 10/09/22 10/10/22 10/10/22 18:35 00:51 07:18 Temperature 36.6 C 36.4 C L Heart Rate Heart Rate [ 99 95 92 Brachial] Respiratory 24 25 H 20 Rate Blood Pressure Blood Pressure 95/46 L 82/56 L 92/62 [Right Brachial artery] O2 Saturation 95 100 95 Oxygen O2 Source Room air I&O (Last 24 Hrs): Intake and Output Totals x24h 10/08/22 10/09/22 10/10/22 23:59 23:59 23:59 Intake Total 2240 2986.000 450 Balance 2240 2986.000 450 General: Alert, No acute distress, Other (Cachectic elederly WF) HEENT: Mucous membr. moist/pink Neck: Supple Neuro: Alert, Disoriented, Non Focal Cardiovascular: Regular rate Respiratory: No respiratory distress, Rales, Rhonchi Abdomen: Normal bowel sounds, Soft Extremities: No clubbing, No edema, No tenderness/swelling - Results Results: Laboratory Results WBC 5.7 x10^3/uL (4.8-10.8) 10/10/22 04:46 RBC 3.42 10^6/uL (4.20-5.40) L 10/10/22 04:46 Hgb 8.7 g/dL (12.0-16.0) L 10/10/22 04:46 Hct 28.8 % (37.0-47.0) L 10/10/22 04:46 MCV 84.2 fL (81.0-99.0) 10/10/22 04:46 MCH 25.4 pg (27.0-31.0) L 10/10/22 04:46 MCHC 30.2 g/dL (32.0-36.0) L 10/10/22 04:46 RDW 15.0 % (12.0-15.0) 10/10/22 04:46 Plt Count 97 10^3/uL (130-450) L 10/10/22 04:46 MPV 10.8 fL (7.9-10.8) 10/10/22 04:46 Neut # (Auto) 4.9 10^3/uL (1.5-6.6) 10/10/22 04:46 Lymph # (Auto) 0.7 10^3/uL (1.5-3.5) L 10/10/22 04:46 [place] # (Auto) 0.1 10^3/uL (0.0-1.0) 10/10/22 04:46 Eos # (Auto) 0.0 10^3/uL (0.0-0.7) 10/10/22 04:46 Baso # (Auto) 0.0 10^3/uL (0.0-0.1) 10/10/22 04:46 Absolute Nucleated RBC 0.00 x10^3/uL 10/10/22 04:46 Total Counted 100 10/08/22 17:56 Band Neuts % (Manual) 10 % (0-10) 10/08/22 17:56 Abnorm Lymph % (Manual) 0 % 10/08/22 17:56 Nucleated RBC % 0.0 /100WBC 10/10/22 04:46 Neutrophils # (Manual) 18.7 10^3/uL (1.5-6.6) H 10/08/22 17:56 Lymphocytes # (Manual) 1.0 10^3/uL (1.5-3.5) L 10/08/22 17:56 Monocytes # (Manual) 0.8 10^3/uL (0.0-1.0) 10/08/22 17:56 Eosinophils # (Manual) 0.0 10^3/uL (0-0.7) 10/08/22 17:56 Basophils # (Manual) 0.0 10^3/uL (0-0.1) 10/08/22 17:56 Differential Comment MANUAL DIFFERENTIAL 10/08/22 17:56 WBC Morphology 1+ TOXIC GRANULATION (NORMAL) 10/08/22 17:56 Platelet Estimate NORMAL (130-450,000) (NORMAL) 10/08/22 17:56 Platelet Morphology NORMAL APPEARANCE (NORMAL) 10/08/22 17:56 RBC Morph Micro Appear NORMAL APPEARANCE (NORMAL) 10/08/22 17:56 PT 14.5 secs (9.9-12.6) H 10/08/22 17:56 INR 1.3 (0.8-1.2) H 10/08/22 17:56 APTT 28.4 secs (24.9-33.3) 10/08/22 17:56 Sodium 142 mmol/L (135-145) 10/10/22 04:46 Potassium 3.8 mmol/L (3.5-5.0) 10/10/22 04:46 Chloride 110 mmol/L (101-111) 10/10/22 04:46 Carbon Dioxide 25 mmol/L (21-32) 10/10/22 04:46 Anion Gap 7.0 (6-13) 10/10/22 04:46 BUN 30 mg/dL (6-20) H 10/10/22 04:46 Creatinine 0.5 mg/dL (0.4-1.0) 10/10/22 04:46 Estimated GFR (MDRD) 116 (>89) 10/10/22 04:46 Glucose 78 mg/dL (70-100) 10/10/22 04:46 Lactic Acid 1.4 mmol/L (0.5-2.2) 10/09/22 01:12 Calcium 8.4 mg/dL (8.5-10.3) L 10/10/22 04:46 Total Bilirubin 1.1 mg/dL (0.2-1.0) H 10/08/22 17:56 AST 14 IU/L (10-42) 10/08/22 17:56 ALT < 10 IU/L (10-60) L 10/08/22 17:56 Alkaline Phosphatase 56 IU/L (42-121) 10/08/22 17:56 Troponin I High Sens 9.6 ng/L (2.3-14.8) 10/09/22 15:56 Total Protein 5.5 g/dL (6.7-8.2) L 10/08/22 17:56 Albumin 2.7 g/dL (3.2-5.5) L 10/08/22 17:56 Globulin 2.8 g/dL (2.1-4.2) 10/08/22 17:56 Albumin/Globulin Ratio 1.0 (1.0-2.2) 10/08/22 17:56 Lipase 21 U/L (22-51) L 10/08/22 17:56 Urine Color YELLOW 10/08/22 17:41 Urine Clarity TURBID (CLEAR) 10/08/22 17:41 Urine pH 7.5 PH (5.0-7.5) 10/08/22 17:41 Ur Specific [place] 1.020 (1.002-1.030) 10/08/22 17:41 Urine Protein >=300 mg/dL (NEGATIVE) H 10/08/22 17:41 Urine Glucose (UA) NEGATIVE mg/dL (NEGATIVE) 10/08/22 17:41 Urine Ketones TRACE mg/dL (NEGATIVE) 10/08/22 17:41 Urine Occult Blood LARGE (NEGATIVE) H 10/08/22 17:41 Urine Nitrite NEGATIVE (NEGATIVE) 10/08/22 17:41 Urine Bilirubin NEGATIVE (NEGATIVE) 10/08/22 17:41 Urine Urobilinogen 1 (NORMAL) E.U./dL (NORMAL) 10/08/22 17:41 Ur Leukocyte Esterase SMALL (NEGATIVE) H 10/08/22 17:41 Urine RBC 11-25 /HPF (0-5) H 10/08/22 17:41 Urine WBC >25 /HPF (0-5) H 10/08/22 17:41 Ur Squamous Epith Cells RARE Squamous (<= Few) 10/08/22 17:41 Urine Bacteria Many /HPF (None Seen) H 10/08/22 17:41 Ur Microscopic Review INDICATED 10/08/22 17:41 Urine Culture Comments INDICATED 10/08/22 17:41 Nasal Adenovirus (PCR) NOT DETECTED 10/08/22 17:46 Nasal B. parapertussis DNA (PCR) NOT DETECTED 10/08/22 17:46 Nasal Coronavir 229E PCR NOT DETECTED 10/08/22 17:46 Nasal Coronavir HKU1 PCR NOT DETECTED 10/08/22 17:46 Nasal Coronavir NL63 PCR NOT DETECTED 10/08/22 17:46 Nasal Coronavir OC43 PCR NOT DETECTED 10/08/22 17:46 Nasal Enterovir/Rhinovir PCR NOT DETECTED 10/08/22 17:46 Nasal Influenza B PCR NOT DETECTED 10/08/22 17:46 Nasal Influenza A PCR NOT DETECTED 10/08/22 17:46 Nasal Parainfluen 1 PCR NOT DETECTED 10/08/22 17:46 Nasal Parainfluen 2 PCR NOT DETECTED 10/08/22 17:46 Nasal Parainfluen 3 PCR NOT DETECTED 10/08/22 17:46 Nasal Parainfluen 4 PCR NOT DETECTED 10/08/22 17:46 Nasal RSV (PCR) DETECTED A 10/08/22 17:46 Nasal B.pertussis DNA PCR NOT DETECTED 10/08/22 17:46 Nasal C.pneumoniae (PCR) NOT DETECTED 10/08/22 17:46 [place] Human Metapneumo PCR NOT DETECTED 10/08/22 17:46 Nasal M.pneumoniae (PCR) NOT DETECTED 10/08/22 17:46 Nasal SARS-CoV-2 (PCR) NOT DETECTED 10/08/22 17:46
[2022-10-10] MEDS: SODIUM CHLORIDE 0.9% 1,000 ML IV SCH ×2 (09:58→21:14)
[2022-10-10] MEDS: CHOLECALCIFEROL 25 MCG TABLET PO SCH ×2 (09:59→10:13)
[2022-10-10] MEDS: CARBIDOPA/LEVODOPA ER 25 MG/100 MG TABLET PO SCH ×2 (09:59→21:05)
[2022-10-10] MEDS: ASPIRIN EC 81 MG TABLET PO SCH (09:59)
[2022-10-10] MEDS: guaiFENesin 600 MG TABLET PO SCH ×2 (10:00→21:04)
[2022-10-10] MEDS: AZITHROMYCIN INJ 500 MG in SODIUM CHLORIDE 0.9% 250 ML IV SCH (10:01)
[2022-10-10] MEDS: cefTRIAXone 1 GM in SODIUM CHLORIDE 0.9% MINIBAG 100 ML IV SCH (10:01)
[2022-10-10] MEDS: SODIUM CHLORIDE FLUSH 0.9% 10 ML SYRINGE IVP SCH ×2 (10:02→17:20)
[2022-10-10] MEDS: MULTIVITAMIN TABLET PO SCH (10:12)
[2022-10-10] MEDS: SENNA 8.6 MG TABLET PO SCH (10:13)
[2022-10-10] MEDS: polyethylene glycoL 3350 17 GM PACKET PO SCH (10:30)
[2022-10-10] MEDS: IPRATROPIUM BROMIDE NAS SCH ×2 (13:41→21:05)
[2022-10-10] MEDS: D MANNOSE 500 MG PO SCH (13:42)
[2022-10-10] MEDS: METOPROLOL SUCCINATE 25 MG TABLET PO SCH (21:05)
[2022-10-11] MEDS: SODIUM CHLORIDE FLUSH 0.9% 10 ML SYRINGE IVP SCH ×3 (02:02→18:10)
[2022-10-11] MEDS: SENNA 8.6 MG TABLET PO SCH ×2 (04:00→09:27)
[2022-10-11 05:04] LABS: BASOPHILS % (AUTO) 0.3 %; EOSINOPHILS # (AUTO) 0.1 10^3/uL (0.0-0.7); EOSINOPHILS % (AUTO) 0.8 %; HCT - HEMATOCRIT 29.1 % (37.0-47.0); HGB - HEMOGLOBIN 9.1 g/dL (12.0-16.0); LYMPHOCYTES # (AUTO) 0.8 10^3/uL (1.5-3.5); LYMPHOCYTES % (AUTO) 13.3 %; MEAN CORPUSCULAR HEMOGLOBIN 26.1 pg (27.0-31.0); MEAN CORPUSCULAR HGB CONC 31.3 g/dL (32.0-36.0); MEAN CORPUSCULAR VOLUME 83.6 fL (81.0-99.0); MEAN PLATELET VOLUME 10.9 fL (7.9-10.8); MONOCYTES # (AUTO) 0.3 10^3/uL (0.0-1.0); MONOCYTES % (AUTO) 4.1 %; NEUTROPHILS # (AUTO) 5.1 10^3/uL (1.5-6.6); NEUTROPHILS % (AUTO) 80.9 %; PLT - PLATELET COUNT 98 10^3/uL (130-450); RED BLOOD COUNT 3.48 10^6/uL (4.20-5.40); WHITE BLOOD COUNT 6.3 x10^3/uL (4.8-10.8)
[2022-10-11 05:05] LABS: CALCIUM 8.3 mg/dL (8.5-10.3); CREATININE 0.4 mg/dL (0.4-1.0); POTASSIUM 3.3 mmol/L (3.5-5.0)
[2022-10-11] MEDS: SODIUM CHLORIDE 0.9% 1,000 ML IV SCH (05:11)
[2022-10-11] MEDS: CARBIDOPA/LEVODOPA 25 MG/100 MG TABLET PO SCH ×5 (05:11→21:51)
[2022-10-11] MEDS ORDERED: POTASSIUM CHLORIDE 10 MEQ CAPSULE PO ONE (08:30)
[2022-10-11] MEDS ORDERED: ESTROGENS, CONJUGATED CREAM 30 GM TUBE VG SCH (09:00)
[2022-10-11] MEDS: ACETAMINOPHEN 325 MG TABLET PO PRN (09:27)
[2022-10-11] MEDS: ASPIRIN EC 81 MG TABLET PO SCH (09:28)
[2022-10-11] MEDS: CARBIDOPA/LEVODOPA ER 25 MG/100 MG TABLET PO SCH ×2 (09:28→21:52)
[2022-10-11] MEDS: MULTIVITAMIN TABLET PO SCH (09:28)
[2022-10-11] MEDS: guaiFENesin 600 MG TABLET PO SCH ×2 (09:28→21:52)
[2022-10-11] MEDS: CHOLECALCIFEROL 25 MCG TABLET PO SCH ×2 (09:28)
[2022-10-11] MEDS: polyethylene glycoL 3350 17 GM PACKET PO SCH ×2 (09:29→09:58)
[2022-10-11] MEDS: cefTRIAXone 1 GM in SODIUM CHLORIDE 0.9% MINIBAG 100 ML IV SCH (09:53)
[2022-10-11] MEDS: AZITHROMYCIN INJ 500 MG in SODIUM CHLORIDE 0.9% 250 ML IV SCH (09:54)
[2022-10-11] MEDS: D MANNOSE 500 MG PO SCH (11:05)
[2022-10-11] MEDS: IPRATROPIUM BROMIDE NAS SCH ×2 (11:05→21:52)
--- NOTE | 2022-10-11 15:22 | PROVIDER PROGRESS NOTE ---
Assessment/Plan - Problem List (1) HCAP (healthcare-associated pneumonia) Assessment/Plan: This patient is a resident of a group home. When she complained of a new cough and pleuritic chest pain on 10/09, a chest x-ray was repeated and this showed a new pneumonia on the left side. It was not seen on the admission CXR, probably because she was dehydrated. She never brought up any sputum to send for culture. Blood cultures have been negative today She was already on ceftriaxone for UTI. Zithromax was added and she completed a course of Zithro today. Plan: Continue iv Ceftriaxone for complete treatment of the PNA Cont Mucinex Await final blood cx results (2) E. coli UTI Abnormal UA at admission This appeared to be the source of her sepsis and AMS at presentation. Blood cultures are negative to date Her urine culture has grown E. coli and sensitivities are available: It is resistant to the quinolones, sens to Keflex, Ceftriaxone and Bactrim Plan: Continue with IV Ceftriaxone, since she still needs to be on it for the pneumonia. If she is to be discharged back to her group home soon, we can change her over to oral Bactrim DS (this was reviewed with the pharmacist) (3) RSV infection Her chest x-ray did not show any infiltrate at admission, however the daughter reported on day #2 that the patient complained of a cough that she cannot expectorate. The repeat chest x-ray did show a new left-sided infiltrate. Mucinex was started. Plan: Cont Mucinex. (4) Hypotension BP is running 90 syst Her "soft" BP persists and is consistent with infection and volume depletion. We did obtain an Echocardiogram which showed: Normal LV and RV chamber sizes, normal LV and RV systolic function. She has mild mitral and tricuspid regurgitation, PA pressure 35 to 40 mmHg and a patent foramen ovale present with [id number] shunt Plan: Will taper her IV fluids to off, since she is eating and drinking well Will hold any meds other than Metoprolol, that drop blood pressure (5) Afib An EKG was done on the day she complained of chest pain. The baseline had motion artifact (because of her Parkinson's tremor) but probably shows A. fib. It is unknown if she has had A. fib documented before. She has never had an EKG here, to have for comparison. Her heart rate is occasionally documented at being 110, mostly it is under 100. He reconciled medication list shows that she was already on metoprolol 25 mg qpm and 1 baby aspirin daily Plan: Cont 1 baby aspirin daily for her stroke prophylaxis. We will increase her metoprolol slightly, for better rate control (6) Parkinson's disease with behavioral disturbances The daughter reported that the patient normally has hallucinations, even when she is at her best and on her Parkinson treatment Plan: Continue her usual Parkinsons meds and any psych medications (7) PFO The Echo shows a left to right shunt, it is not going right to left which would give her a higher risk for an systemic emboli Plan: She is not a candidate for PFO closure, given her age and comorbidities (8) Bedbound Report was received that she is bedbound, transfers to a wheelchair using a Keri lift. Plan: Continue to get her OOB daily using a lift No PT or OT rehab have been ordered (9) Hx of HTN As per history. Plan: We are still hold any meds that drop her blood pressure (10) AMS Resolved. She is not as somnolent, is awake, she only answers minimally to strangers but more easily to family, according to the daughter. Plan: Continue to treat the underlying cause for her confusion and somnolence, her infections. (11) Pleuritic chest pain Assessment/Plan: Improved On Day #2 the patient had several episodes of chest pain in the center chest that she rated 8/10. She could not take a deep breath, due to the pain, suggesting that it was pleuritic pain. A CXR was done that showed a new pneumonia, which developed after a day of iv hydration. We cycled troponins and these were entirely normal A stat EKG was done and showed A. fib and no ischemic changes Plan: We will continue Tylenol for pain control, and try to avoid nercotics that may cause somnolence and confusion. (12) Severe sepsis Resolved, along with improved mental status and WBC Plan: Continue with IV antibiotics - Current Meds Current Meds: Current Medications Generic Name Dose Route Start Last Admin Trade Name Freq PRN Reason Stop Dose Admin Acetaminophen 650 mg 10/08/22 20:03 10/11/22 09:27 Acetaminophen 325 Mg Tablet PO 650 mg Q4HR PRN Administration Pain 1 to 4, or Fever Aspirin 81 mg 10/10/22 09:00 10/11/22 09:28 Aspirin Ec 81 Mg Tablet PO 81 mg DAILY MAVIS Administration Carbidopa/Levodopa 1 tab 10/09/22 14:00 10/11/22 09:28 Carbidopa/Levodopa Er 25 Mg/100 Mg Tablet PO 1 tab BID MAVIS Administration Carbidopa/Levodopa 1 tab 10/09/22 14:00 10/11/22 13:35 Carbidopa/Levodopa 25 Mg/100 Mg Tablet PO 1 tab 5XD MAVIS Administration Cholecalciferol 25 mcg 10/10/22 09:00 10/11/22 09:28 Cholecalciferol 25 Mcg Tablet PO 25 mcg DAILY MAVIS Administration Cholecalciferol 50 mcg 10/10/22 09:00 10/11/22 09:28 Cholecalciferol 25 Mcg Tablet PO 50 mcg DAILY MAVIS Administration Estrogens Conjugated 0.498 applic 10/11/22 09:00 10/11/22 09:59 Estrogens, Conjugated Cream 30 Gm Tube VG 0.5 gm MOFR MAVIS Administration Guaifenesin 600 mg 10/09/22 21:00 10/11/22 09:28 Guaifenesin 600 Mg Tablet PO 600 mg BID MAVIS Administration Lidocaine 1 patch 10/09/22 13:23 10/10/22 10:00 Lidocaine Patch 5% TOP 1 patch DAILY PRN Administration PAIN Metoprolol Succinate 25 mg 10/09/22 21:00 10/10/22 21:05 Metoprolol Succinate 25 Mg Tablet PO Not Given QPM [facility] Multivitamins 1 tab 10/10/22 08:00 10/11/22 09:28 Multivitamin Tablet PO 1 tab DAILYWM MAVIS Administration Ipratropium 2 each 10/09/22 21:00 10/11/22 11:05 [place] [Ipratropium RASHI Not Given [place]] 15 Ml BID [facility] [place] Patient Own Med (D- 1 each 10/10/22 09:00 10/11/22 11:05 [place] [Azo D- PO Not Given [place]] 500 Mg DAILY [facility] Capsule) Polyethylene Glycol 17 gm 10/10/22 09:00 10/11/22 09:58 Polyethylene Glycol 3350 17 Gm Packet PO Not Given DAILY MAVIS [place] 17.2 mg 10/10/22 09:00 10/11/22 09:27 Senna 8.6 Mg Tablet PO 17.2 mg DAILY MAVIS Administration Sodium Chloride 10 ml 10/09/22 01:00 10/11/22 09:29 Sodium Chloride Flush 0.9% 10 Ml Syringe IVP Not Given 0100,0900,1700 MAVIS - Lab Result Fish Bone Diagrams: 10/11/22 04:45 10/11/22 04:45 - Additional Planning My Orders: My Active Orders 10/11/22 09:00 Estrogens, Conjugated Cream [Premarin Cream] 0.498 applic VG MOFR 10/11/22 Lunch Soft Mechanical Diet [DIET] 10/11/22 21:00 Mirtazapine [Remeron] 7.5 mg PO QPM Pramipexole [Mirapex] 0.25 mg PO QPM 10/12/22 05:00 BMP - BASIC METABOLIC PANEL [CHEM] DAILYLAB CBC - COMP BLD CT W/AUTO DIFF [HEME] DAILYLAB Subjective - Subjective Patient Reports: Resting Comfortably, Other (Sitting upright in bed, watching TV, just finished eating) Objective Vital Signs: Vital Signs - 24 hr 10/10/22 10/11/22 10/11/22 15:49 00:00 08:00 Temperature 36.3 C L 37.3 C 37.1 C Heart Rate [ 104 H 110 H 89 Brachial] Respiratory 26 H 20 18 Rate Blood Pressure 119/79 [Left Brachial artery] Blood Pressure 96/61 107/62 [Right Brachial artery] O2 Saturation 94 93 98 Oxygen O2 Source Room air I&O (Last 24 Hrs): Intake and Output Totals x24h 10/09/22 10/10/22 10/11/22 23:59 23:59 23:59 Intake Total 2986.000 3667.083 1906.667 Balance 2986.000 3667.083 1906.667 General: Alert, No acute distress HEENT: Mucous membr. moist/pink, Other (Cachectic with temporal wasting) Neck: Supple, No JVD Neuro: Alert, Disoriented, Other (Generalized weakness (has been bedbound for a long time)) Cardiovascular: No murmurs Respiratory: No respiratory distress, Breath sounds nml Abdomen: Normal bowel sounds, Soft, No tenderness Extremities: No clubbing, No edema - Results Results: Laboratory Results WBC 6.3 x10^3/uL (4.8-10.8) 10/11/22 04:45 RBC 3.48 10^6/uL (4.20-5.40) L 10/11/22 04:45 Hgb 9.1 g/dL (12.0-16.0) L 10/11/22 04:45 Hct 29.1 % (37.0-47.0) L 10/11/22 04:45 MCV 83.6 fL (81.0-99.0) 10/11/22 04:45 MCH 26.1 pg (27.0-31.0) L 10/11/22 04:45 MCHC 31.3 g/dL (32.0-36.0) L 10/11/22 04:45 RDW 15.0 % (12.0-15.0) 10/11/22 04:45 Plt Count 98 10^3/uL (130-450) L 10/11/22 04:45 MPV 10.9 fL (7.9-10.8) H 10/11/22 04:45 Neut # (Auto) 5.1 10^3/uL (1.5-6.6) 10/11/22 04:45 Lymph # (Auto) 0.8 10^3/uL (1.5-3.5) L 10/11/22 04:45 [place] # (Auto) 0.3 10^3/uL (0.0-1.0) 10/11/22 04:45 Eos # (Auto) 0.1 10^3/uL (0.0-0.7) 10/11/22 04:45 Baso # (Auto) 0.0 10^3/uL (0.0-0.1) 10/11/22 04:45 Absolute Nucleated RBC 0.00 x10^3/uL 10/11/22 04:45 Total Counted 100 10/08/22 17:56 Band Neuts % (Manual) 10 % (0-10) 10/08/22 17:56 Abnorm Lymph % (Manual) 0 % 10/08/22 17:56 Nucleated RBC % 0.0 /100WBC 10/11/22 04:45 Neutrophils # (Manual) 18.7 10^3/uL (1.5-6.6) H 10/08/22 17:56 Lymphocytes # (Manual) 1.0 10^3/uL (1.5-3.5) L 10/08/22 17:56 Monocytes # (Manual) 0.8 10^3/uL (0.0-1.0) 10/08/22 17:56 Eosinophils # (Manual) 0.0 10^3/uL (0-0.7) 10/08/22 17:56 Basophils # (Manual) 0.0 10^3/uL (0-0.1) 10/08/22 17:56 Differential Comment MANUAL DIFFERENTIAL 10/08/22 17:56 WBC Morphology 1+ TOXIC GRANULATION (NORMAL) 10/08/22 17:56 Platelet Estimate NORMAL (130-450,000) (NORMAL) 10/08/22 17: Platelet Morphology NORMAL APPEARANCE (NORMAL) 10/08/22 17:56 RBC Morph Micro Appear NORMAL APPEARANCE (NORMAL) 10/08/22 17:56 PT 14.5 secs (9.9-12.6) H 10/08/22 17:56 INR 1.3 (0.8-1.2) H 10/08/22 17:56 APTT 28.4 secs (24.9-33.3) 10/08/22 17:56 Sodium 145 mmol/L (135-145) 10/11/22 04:45 Potassium 3.3 mmol/L (3.5-5.0) L 10/11/22 04:45 Chloride 112 mmol/L (101-111) H 10/11/22 04:45 Carbon Dioxide 24 mmol/L (21-32) 10/11/22 04:45 Anion Gap 9.0 (6-13) 10/11/22 04:45 BUN 20 mg/dL (6-20) 10/11/22 04:45 Creatinine 0.4 mg/dL (0.4-1.0) 10/11/22 04:45 Estimated GFR (MDRD) 150 (>89) 10/11/22 04:45 Glucose 86 mg/dL (70-100) 10/11/22 04:45 Lactic Acid 1.4 mmol/L (0.5-2.2) 10/09/22 01:12 Calcium 8.3 mg/dL (8.5-10.3) L 10/11/22 04:45 Magnesium 1.9 mg/dL (1.7-2.8) 10/10/22 04:46 Total Bilirubin 1.1 mg/dL (0.2-1.0) H 10/08/22 17:56 AST 14 IU/L (10-42) 10/08/22 17:56 ALT < 10 IU/L (10-60) L 10/08/22 17:56 Alkaline Phosphatase 56 IU/L (42-121) 10/08/22 17:56 Troponin I High Sens 9.6 ng/L (2.3-14.8) 10/09/22 15:56 Total Protein 5.5 g/dL (6.7-8.2) L 10/08/22 17:56 Albumin 2.7 g/dL (3.2-5.5) L 10/08/22 17:56 Globulin 2.8 g/dL (2.1-4.2) 10/08/22 17:56 Albumin/Globulin Ratio 1.0 (1.0-2.2) 10/08/22 17:56 Lipase 21 U/L (22-51) L 10/08/22 17:56 Urine Color YELLOW 10/08/22 17:41 Urine Clarity TURBID (CLEAR) 10/08/22 17:41 Urine pH 7.5 PH (5.0-7.5) 10/08/22 17:41 Ur Specific [place] 1.020 (1.002-1.030) 10/08/22 17:41 Urine Protein >=300 mg/dL (NEGATIVE) H 10/08/22 17:41 Urine Glucose (UA) NEGATIVE mg/dL (NEGATIVE) 10/08/22 17:41 Urine Ketones TRACE mg/dL (NEGATIVE) 10/08/22 17:41 Urine Occult Blood LARGE (NEGATIVE) H 10/08/22 17:41 Urine Nitrite NEGATIVE (NEGATIVE) 10/08/22 17:41 Urine Bilirubin NEGATIVE (NEGATIVE) 10/08/22 17:41 Urine Urobilinogen 1 (NORMAL) E.U./dL (NORMAL) 10/08/22 17:41 Ur Leukocyte Esterase SMALL (NEGATIVE) H 10/08/22 17:41 Urine RBC 11-25 /HPF (0-5) H 10/08/22 17:41 Urine WBC >25 /HPF (0-5) H 10/08/22 17:41 Ur Squamous Epith Cells RARE Squamous (<= Few) 10/08/22 17:41 Urine Bacteria Many /HPF (None Seen) H 10/08/22 17:41 Ur Microscopic Review INDICATED 10/08/22 17:41 Urine Culture Comments INDICATED 10/08/22 17:41 Nasal Adenovirus (PCR) NOT DETECTED 10/08/22 17:46 Nasal B. parapertussis DNA (PCR) NOT DETECTED 10/08/22 17:46 Nasal Coronavir 229E PCR NOT DETECTED 10/08/22 17:46 Nasal Coronavir HKU1 PCR NOT DETECTED 10/08/22 17:46 Nasal Coronavir NL63 PCR NOT DETECTED 10/08/22 17:46 Nasal Coronavir OC43 PCR NOT DETECTED 10/08/22 17:46 Nasal Enterovir/Rhinovir PCR NOT DETECTED 10/08/22 17:46 Nasal Influenza B PCR NOT DETECTED 10/08/22 17:46 Nasal Influenza A PCR NOT DETECTED 10/08/22 17:46 Nasal Parainfluen 1 PCR NOT DETECTED 10/08/22 17:46 Nasal Parainfluen 2 PCR NOT DETECTED 10/08/22 17:46 Nasal Parainfluen 3 PCR NOT DETECTED 10/08/22 17:46 Nasal Parainfluen 4 PCR NOT DETECTED 10/08/22 17:46 Nasal RSV (PCR) DETECTED A 10/08/22 17:46 Nasal B.pertussis DNA PCR NOT DETECTED 10/08/22 17:46 Nasal C.pneumoniae (PCR) NOT DETECTED 10/08/22 17:46 Rashi Human Metapneumo PCR NOT DETECTED 10/08/22 17:46 Nasal M.pneumoniae (PCR) NOT DETECTED 10/08/22 17:46 Nasal SARS-CoV-2 (PCR) NOT DETECTED 10/08/22 17:46 SARS-CoV-2 (PCR) NOT DETECTED 10/11/22 11:50
[2022-10-11] MEDS ORDERED: METOPROLOL SUCCINATE 25 MG TABLET PO SCH (21:00)
[2022-10-11] MEDS: METOPROLOL SUCCINATE 25 MG TABLET PO SCH (21:51)
[2022-10-11] MEDS: MIRTAZAPINE 15 MG TABLET PO SCH (21:51)
[2022-10-11] MEDS: PRAMIPEXOLE 0.25 MG TABLET PO SCH (21:52)
[2022-10-12] MEDS: SODIUM CHLORIDE FLUSH 0.9% 10 ML SYRINGE IVP SCH ×3 (00:40→18:06)
[2022-10-12 05:10] LABS: BASOPHILS % (AUTO) 0.3 %; EOSINOPHILS # (AUTO) 0.2 10^3/uL (0.0-0.7); EOSINOPHILS % (AUTO) 2.6 %; HCT - HEMATOCRIT 28.6 % (37.0-47.0); HGB - HEMOGLOBIN 8.9 g/dL (12.0-16.0); LYMPHOCYTES % (AUTO) 17.1 %; MEAN CORPUSCULAR HEMOGLOBIN 25.7 pg (27.0-31.0); MEAN CORPUSCULAR HGB CONC 31.1 g/dL (32.0-36.0); MEAN CORPUSCULAR VOLUME 82.7 fL (81.0-99.0); MONOCYTES # (AUTO) 0.4 10^3/uL (0.0-1.0); MONOCYTES % (AUTO) 5.8 %; NEUTROPHILS # (AUTO) 4.4 10^3/uL (1.5-6.6); NEUTROPHILS % (AUTO) 72.2 %; PLT - PLATELET COUNT 126 10^3/uL (130-450); RED BLOOD COUNT 3.46 10^6/uL (4.20-5.40); RED CELL DISTRIBUTION WIDTH 15.1 % (12.0-15.0)
[2022-10-12 05:17] LABS: CALCIUM 8.2 mg/dL (8.5-10.3); CREATININE 0.4 mg/dL (0.4-1.0); POTASSIUM 3.3 mmol/L (3.5-5.0)
[2022-10-12] MEDS: CARBIDOPA/LEVODOPA 25 MG/100 MG TABLET PO SCH ×5 (06:03→21:10)
[2022-10-12] MEDS: cefTRIAXone 1 GM in SODIUM CHLORIDE 0.9% MINIBAG 100 ML IV SCH (10:00)
[2022-10-12] MEDS: CARBIDOPA/LEVODOPA ER 25 MG/100 MG TABLET PO SCH ×2 (10:01→21:10)
[2022-10-12] MEDS: ASPIRIN EC 81 MG TABLET PO SCH (10:01)
[2022-10-12] MEDS: guaiFENesin 600 MG TABLET PO SCH ×2 (10:01→21:10)
[2022-10-12] MEDS: CHOLECALCIFEROL 25 MCG TABLET PO SCH (10:04)
[2022-10-12] MEDS: METOPROLOL SUCCINATE 25 MG TABLET PO SCH ×2 (10:04→21:10)
[2022-10-12] MEDS: MULTIVITAMIN TABLET PO SCH (10:06)
[2022-10-12] MEDS: polyethylene glycoL 3350 17 GM PACKET PO SCH (10:07)
[2022-10-12] MEDS: POTASSIUM CHLOR 10 MEQ/100 ML 10 MEQ/100 ML BAG IV SCH ×2 (10:46→11:48)
[2022-10-12] MEDS: IPRATROPIUM BROMIDE NAS SCH ×2 (11:12→21:11)
[2022-10-12] MEDS: D MANNOSE 500 MG PO SCH (11:13)
--- NOTE | 2022-10-12 19:46 | PROVIDER PROGRESS NOTE ---
Assessment/Plan - Problem List (1) HCAP (healthcare-associated pneumonia) Assessment/Plan: This patient is a resident of a halfway. When she complained of a new cough and pleuritic chest pain on 10/09, a chest x-ray was repeated and this showed a new pneumonia on the left side. It was not seen on the admission CXR, probably because she was dehydrated. She never brought up any sputum to send for culture. Blood cultures have been negative to date She was already on ceftriaxone for UTI. Zithromax was added and she completed a course of Zithro . Plan: Continue iv Ceftriaxone for complete treatment of the PNA. Alternatively she can be put on Ceftin or TMP sulfa orally Cont Mucinex Since yesterday she can be discharged to her halfway residence facility. Social work contacted them yesterday (Fri), but they need to get a new approval from her Insurances for her to return, and no progress is made on Sat or Sun, today is Sat. (2) E. coli UTI Abnormal UA at admission This appeared to be the source of her sepsis and AMS at presentation. Blood cultures are negative to date Her urine culture has grown E. coli and sensitivities are available: It is resistant to the quinolones, sens to Keflex, Ceftriaxone and Bactrim Plan: Continue with IV Ceftriaxone, since she still needs to be on it for the pneumonia. If she is to be discharged back to her halfway soon, we can change her over to oral Bactrim DS (this was reviewed with the pharmacist) (3) RSV infection Her chest x-ray did not show any infiltrate at admission, however the daughter reported on day #2 that the patient complained of a cough that she cannot expectorate. The repeat chest x-ray did show a new left-sided infiltrate. Mucinex was started. Plan: Cont Mucinex. (4) Hypotension BP was running 90 syst, today is 100 syst Her "soft" BP persists and was consistent with infection and volume depletion. We did obtain an Echocardiogram which showed: Normal LV and RV chamber sizes, normal LV and RV systolic function. She has mild mitral and tricuspid regurgitation, PA pressure 35 to 40 mmHg and a patent foramen ovale present with [id number] shunt Plan: We tapered her IV fluids to off, since she is eating and drinking well Will continue to hold any meds other than Metoprolol, that drop blood pressure (5) Afib An EKG was done on the day she complained of chest pain. The baseline had motion artifact (because of her Parkinson's tremor) but probably shows A. fib. It is unknown if she has had A. fib documented before. She has never had an EKG here, to have for comparison. Her heart rate is occasionally documented at being 110, mostly it is under 100. He reconciled medication list shows that she was already on metoprolol 25 mg qpm and 1 baby aspirin daily Plan: Cont 1 baby aspirin daily for her stroke prophylaxis. We have increased her metoprolol slightly, for better rate control (6) Parkinson's disease with behavioral disturbances The daughter reported that the patient normally has hallucinations, even when she is at her best and on her Parkinson treatment Plan: Continue her usual Parkinsons meds and any psych medications (7) PFO The Echo shows a left to right shunt, it is not going right to left which would give her a higher risk for an systemic emboli Plan: She is not a candidate for PFO closure, given her age and comorbidities (8) Bedbound Report was received that she is bedbound, transfers to a wheelchair using a Keri lift. Plan: Continue to get her OOB daily using a lift No PT or OT rehab have been ordered She can be discharged to her halfway residence facility. Social work has contacted them but they need to get a new approval from her Insurances for her to return (9) Hx of HTN As per history. Plan: We are still hold any meds that drop her blood pressure (10) AMS Resolved. She is not as somnolent, is awake, she only answers minimally to str angers but more easily to family, according to the daughter. Plan: Continue to treat the underlying cause for her confusion and somnolence, her infections. (11) Pleuritic chest pain Assessment/Plan: Improved On Day #2 the patient had several episodes of chest pain in the center chest that she rated 8/10. She could not take a deep breath, due to the pain, [place] ggesting that it was pleuritic pain. A CXR was done that showed a new pneumonia, which developed after a day of iv hydration. We cycled troponins and these were entirely normal A stat EKG was done and showed A. fib and no ischemic changes Plan: We will continue Tylenol for pain control, and try to avoid nercotics that may cause somnolence and confusion. (12) Severe sepsis Resolved, along with improved mental status and WBC Plan: Continue with IV antibiotics - Current Meds Current Meds: Current Medications Generic Name Dose Route Start Last Admin Trade Name Abdiazizq PRN Reason Stop Dose Admin Acetaminophen 650 mg 10/08/22 20:03 10/11/22 09:27 Acetaminophen 325 Mg Tablet PO 650 mg Q4HR PRN Administration Pain 1 to 4, or Fever Aspirin 81 mg 10/10/22 09:00 10/12/22 10:01 Aspirin Ec 81 Mg Tablet PO 81 mg DAILY MAVIS Administration Carbidopa/Levodopa 1 tab 10/09/22 14:00 10/12/22 10:01 Carbidopa/Levodopa Er 25 Mg/100 Mg Tablet PO 1 tab BID MAVIS Administration Carbidopa/Levodopa 1 tab 10/09/22 14:00 10/12/22 18:05 Carbidopa/Levodopa 25 Mg/100 Mg Tablet PO 1 tab 5XD MAVIS Administration Cholecalciferol 50 mcg 10/10/22 09:00 10/12/22 10:04 Cholecalciferol 25 Mcg Tablet PO 50 mcg DAILY MAVIS Administration Estrogens Conjugated 0.498 applic 10/11/22 09:00 10/11/22 09:59 Estrogens, Conjugated Cream 30 Gm Tube VG 0.5 gm MOFR MAVIS Administration Guaifenesin 600 mg 10/09/22 21:00 10/12/22 10:01 Guaifenesin 600 Mg Tablet PO 600 mg BID MAVIS Administration Ceftriaxone Sodium 1 gm/ 100 mls @ 200 mls/hr 10/12/22 09:00 10/12/22 10:47 Sodium Chloride IV Infused DAILY MAVIS Infusion Lidocaine 1 patch 10/09/22 13:23 10/10/22 10:00 Lidocaine Patch 5% TOP 1 patch DAILY PRN Administration PAIN Metoprolol Succinate 12.5 mg 10/12/22 09:00 10/12/22 10:04 Metoprolol Succinate 25 Mg Tablet PO 12.5 mg DAILY MAVIS Administration Metoprolol Succinate 25 mg 10/11/22 21:00 10/11/22 21:51 Metoprolol Succinate 25 Mg Tablet PO 25 mg QPM MAVIS Administration Mirtazapine 7.5 mg 10/11/22 21:00 10/11/22 21:51 Mirtazapine 15 Mg Tablet PO 7.5 mg QPM MAVIS Administration Multivitamins 1 tab 10/10/22 08:00 10/12/22 10:06 Multivitamin Tablet PO 1 tab DAILYWM MAVIS Administration Ipratropium 2 each 10/09/22 21:00 10/12/22 11:12 [place] [Ipratropium RASHI Not Given [place]] 15 Ml BID MAVIS Zanoni Patient Own Med (D- 1 each 10/10/22 09:00 10/12/22 11:13 [place] [Azo D- PO Not Given [place]] 500 Mg DAILY MAVIS Capsule) Polyethylene Glycol 17 gm 10/10/22 09:00 10/12/22 10:07 Polyethylene Glycol 3350 17 Gm Packet PO 17 gm DAILY MAVIS Administration Pramipexole Dihydrochloride 0.25 mg 10/11/22 21:00 10/11/22 21:52 Pramipexole 0.25 Mg Tablet PO 0.25 mg QPM MAVIS Administration Senna 17.2 mg 10/10/22 09:00 10/11/22 09:27 Senna 8.6 Mg Tablet PO 17.2 mg DAILY MAVIS Administration Sodium Chloride 10 ml 10/09/22 01:00 10/12/22 18:06 Sodium Chloride Flush 0.9% 10 Ml Syringe IVP 10 ml 0100,0900,1700 MAVIS Administration - Lab Result Fish Bone Diagrams: 10/12/22 04:53 10/12/22 04:53 - Additional Planning My Orders: My Active Orders 10/11/22 21:00 Metoprolol Succinate [Toprol Xl] 25 mg PO QPM Mirtazapine [Remeron] 7.5 mg PO QPM Pramipexole [Mirapex] 0.25 mg PO QPM 10/12/22 09:00 Metoprolol Succinate [Toprol Xl] 12.5 mg PO DAILY cefTRIAXone [Rocephin] 1 gm Sodium Chloride 0.9% Minibag [Normal Saline 0.9% Minibag] 100 ml IV DAILY Subjective - Subjective Patient Reports: Resting Comfortably Objective Vital Signs: Vital Signs - 24 hr 10/11/22 10/12/22 10/12/22 23:56 08:06 16:00 Temperature 37.0 C 36.9 C 36.6 C Heart Rate [ 85 72 82 Brachial] Respiratory 18 20 22 Rate Blood Pressure 118/83 H 101/58 L 101/75 [Right Brachial artery] O2 Saturation 95 96 98 Oxygen O2 Source Room air I&O (Last 24 Hrs): Intake and Output Totals x24h 10/10/22 10/11/22 10/12/22 23:59 23:59 23:59 Intake Total 3667.083 3436.667 830 Balance 3667.083 3436.667 830 General: Alert, No acute distress HEENT: EOMI, Mucous membr. moist/pink Neck: Supple Neuro: Alert, Disoriented, Non Focal Cardiovascular: No murmurs Respiratory: No respiratory distress Abdomen: Soft Extremities: No edema, No tenderness/swelling - Results Results: Laboratory Results WBC 6.0 x10^3/uL (4.8-10.8) 10/12/22 04:53 RBC 3.46 10^6/uL (4.20-5.40) L 10/12/22 04:53 Hgb 8.9 g/dL (12.0-16.0) L 10/12/22 04:53 Hct 28.6 % (37.0-47.0) L 10/12/22 04:53 MCV 82.7 fL (81.0-99.0) 10/12/22 04:53 MCH 25.7 pg (27.0-31.0) L 10/12/22 04:53 MCHC 31.1 g/dL (32.0-36.0) L 10/12/22 04:53 RDW 15.1 % (12.0-15.0) H 10/12/22 04:53 Plt Count 126 10^3/uL (130-450) L 10/12/22 04:53 MPV 11.0 fL (7.9-10.8) H 10/12/22 04:53 Neut # (Auto) 4.4 10^3/uL (1.5-6.6) 10/12/22 04:53 Lymph # (Auto) 1.0 10^3/uL (1.5-3.5) L 10/12/22 04:53 [place] # (Auto) 0.4 10^3/uL (0.0-1.0) 10/12/22 04:53 Eos # (Auto) 0.2 10^3/uL (0.0-0.7) 10/12/22 04:53 Baso # (Auto) 0.0 10^3/uL (0.0-0.1) 10/12/22 04:53 Absolute Nucleated RBC 0.00 x10^3/uL 10/12/22 04:53 Total Counted 100 10/08/22 17:56 Band Neuts % (Manual) 10 % (0-10) 10/08/22 17:56 Abnorm Lymph % (Manual) 0 % 10/08/22 17:56 Nucleated RBC % 0.0 /100WBC 10/12/22 04:53 Neutrophils # (Manual) 18.7 10^3/uL (1.5-6.6) H 10/08/22 17:56 Lymphocytes # (Manual) 1.0 10^3/uL (1.5-3.5) L 10/08/22 17:56 Monocytes # (Manual) 0.8 10^3/uL (0.0-1.0) 10/08/22 17:56 Eosinophils # (Manual) 0.0 10^3/uL (0-0.7) 10/08/22 17:56 Basophils # (Manual) 0.0 10^3/uL (0-0.1) 10/08/22 17:56 Differential Comment MANUAL DIFFERENTIAL 10/08/22 17:56 WBC Morphology 1+ TOXIC GRANULATION (NORMAL) 10/08/22 17:56 Platelet Estimate NORMAL (130-450,000) (NORMAL) 10/08/22 17:56 Platelet Morphology NORMAL APPEARANCE (NORMAL) 10/08/22 17:56 RBC Morph Micro Appear NORMAL APPEARANCE (NORMAL) 10/08/22 17:56 PT 14.5 secs (9.9-12.6) H 10/08/22 17:56 INR 1.3 (0.8-1.2) H 10/08/22 17:56 APTT 28.4 secs (24.9-33.3) 10/08/22 17:56 Sodium 143 mmol/L (135-145) 10/12/22 04:53 Potassium 3.3 mmol/L (3.5-5.0) L 10/12/22 04:53 Chloride 109 mmol/L (101-111) 10/12/22 04:53 Carbon Dioxide 27 mmol/L (21-32) 10/12/22 04:53 Anion Gap 7.0 (6-13) 10/12/22 04:53 BUN 14 mg/dL (6-20) 10/12/22 04:53 Creatinine 0.4 mg/dL (0.4-1.0) 10/12/22 04:53 Estimated GFR (MDRD) 150 (>89) 10/12/22 04:53 Glucose 92 mg/dL (70-100) 10/12/22 04:53 Lactic Acid 1.4 mmol/L (0.5-2.2) 10/09/22 01:12 Calcium 8.2 mg/dL (8.5-10.3) L 10/12/22 04:53 Magnesium 1.9 mg/dL (1.7-2.8) 10/10/22 04:46 Total Bilirubin 1.1 mg/dL (0.2-1.0) H 10/08/22 17:56 AST 14 IU/L (10-42) 10/08/22 17:56 ALT < 10 IU/L (10-60) L 10/08/22 17:56 Alkaline Phosphatase 56 IU/L (42-121) 10/08/22 17:56 Troponin I High Sens 9.6 ng/L (2.3-14.8) 10/09/22 15:56 Total Protein 5.5 g/dL (6.7-8.2) L 10/08/22 17:56 Albumin 2.7 g/dL (3.2-5.5) L 10/08/22 17:56 Globulin 2.8 g/dL (2.1-4.2) 10/08/22 17:56 Albumin/Globulin Ratio 1.0 (1.0-2.2) 10/08/22 17:56 Lipase 21 U/L (22-51) L 10/08/22 17:56 Urine Color YELLOW 10/08/22 17:41 Urine Clarity TURBID (CLEAR) 10/08/22 17:41 Urine pH 7.5 PH (5.0-7.5) 10/08/22 17:41 Ur Specific [place] 1.020 (1.002-1.030) 10/08/22 17:41 Urine Protein >=300 mg/dL (NEGATIVE) H 10/08/22 17:41 Urine Glucose (UA) NEGATIVE mg/dL (NEGATIVE) 10/08/22 17:41 Urine Ketones TRACE mg/dL (NEGATIVE) 10/08/22 17:41 Urine Occult Blood LARGE (NEGATIVE) H 10/08/22 17:41 Urine Nitrite NEGATIVE (NEGATIVE) 10/08/22 17:41 Urine Bilirubin NEGATIVE (NEGATIVE) 10/08/22 17:41 Urine Urobilinogen 1 (NORMAL) E.U./dL (NORMAL) 10/08/22 17:41 Ur Leukocyte Esterase SMALL (NEGATIVE) H 10/08/22 17:41 Urine RBC 11-25 /HPF (0-5) H 10/08/22 17:41 Urine WBC >25 /HPF (0-5) H 10/08/22 17:41 Ur Squamous Epith Cells RARE Squamous (<= Few) 10/08/22 17:41 Urine Bacteria Many /HPF (None Seen) H 10/08/22 17:41 Ur Microscopic Review INDICATED 10/08/22 17:41 Urine Culture Comments INDICATED 10/08/22 17:41 Nasal Adenovirus (PCR) NOT DETECTED 10/08/22 17:46 Nasal B. parapertussis DNA (PCR) NOT DETECTED 10/08/22 17:46 Nasal Coronavir 229E PCR NOT DETECTED 10/08/22 17:46 Nasal Coronavir HKU1 PCR NOT DETECTED 10/08/22 17:46 Nasal Coronavir NL63 PCR NOT DETECTED 10/08/22 17:46 Nasal Coronavir OC43 PCR NOT DETECTED 10/08/22 17:46 Nasal Enterovir/Rhinovir PCR NOT DETECTED 10/08/22 17:46 Nasal Influenza B PCR NOT DETECTED 10/08/22 17:46 Nasal Influenza A PCR NOT DETECTED 10/08/22 17:46 Nasal Parainfluen 1 PCR NOT DETECTED 10/08/22 17:46 Nasal Parainfluen 2 PCR NOT DETECTED 10/08/22 17:46 Nasal Parainfluen 3 PCR NOT DETECTED 10/08/22 17:46 Nasal Parainfluen 4 PCR NOT DETECTED 10/08/22 17:46 Nasal RSV (PCR) DETECTED A 10/08/22 17:46 Nasal B.pertussis DNA PCR NOT DETECTED 10/08/22 17:46 Nasal C.pneumoniae (PCR) NOT DETECTED 10/08/22 17:46 Rashi Human Metapneumo PCR NOT DETECTED 10/08/22 17:46 Nasal M.pneumoniae (PCR) NOT DETECTED 10/08/22 17:46 Nasal SARS-CoV-2 (PCR) NOT DETECTED 10/08/22 17:46 SARS-CoV-2 (PCR) NOT DETECTED 10/11/22 11:50
[2022-10-12] MEDS: PRAMIPEXOLE 0.25 MG TABLET PO SCH (21:10)
[2022-10-12] MEDS: MIRTAZAPINE 15 MG TABLET PO SCH (21:11)
[2022-10-13] MEDS: SODIUM CHLORIDE FLUSH 0.9% 10 ML SYRINGE IVP SCH ×3 (01:23→18:46)
[2022-10-13] MEDS: CARBIDOPA/LEVODOPA 25 MG/100 MG TABLET PO SCH ×5 (05:14→22:03)
--- NOTE | 2022-10-13 08:10 | PROVIDER PROGRESS NOTE ---
Assessment/Plan - Problem List (1) HCAP (healthcare-associated pneumonia) Assessment/Plan: This patient is a resident of a prison. When she complained of a new cough and pleuritic chest pain on 10/09, a chest x-ray was repeated and this showed a new pneumonia on the left side. It was not seen on the admission CXR, probably because she was dehydrated. She never brought up any sputum to send for culture. Blood cultures have been negative to date She was already on ceftriaxone for UTI. Zithromax was added and she completed a course of Zithro . Plan: Cont Mucinex Continue iv Ceftriaxone for complete treatment of the PNA. Alternatively she can be put on Ceftin orally or TMP sulfa orally, if the [facility] is ready to accept her back Since 10/11 she has been medically stable to be discharged to her prison residence facility. Social work contacted them 10/11. When they called us back they said they need to get a new approval from her Insurances for her to return, and no progress was made on weekends, today is Sun. (2) E. coli UTI Abnormal UA at admission This appeared to be the source of her sepsis and AMS at presentation. Blood cultures are negative to date Her urine culture has grown E. coli and sensitivities are available: It is resistant to the quinolones, sens to Keflex, Ceftriaxone and Bactrim Plan: Continue with IV Ceftriaxone, since she still could be on it for the pneumonia. If she is to be discharged back to her prison imminently, we can change her over to oral Bactrim DS (this was reviewed with the pharmacist) (3) RSV infection Her chest x-ray did not show any infiltrate at admission, however the daughter reported on day #2 that the patient complained of a cough that she cannot expectorate. The repeat chest x-ray did show a new left-sided infiltrate. Mucinex was started. Plan: Cont Mucinex. (4) Hypotension BP was running 90 syst, today is 100 syst Her "soft" BP persists and was consistent with infection and volume depletion. We did obtain an Echocardiogram which showed: Normal LV and RV chamber sizes, normal LV and RV systolic function. She has mild mitral and tricuspid regu rgitation, PA pressure 35 to 40 mmHg and a patent foramen ovale present with [id number] shunt Plan: We tapered her IV fluids to off, since she is eating and drinking well Will continue to hold any meds other than Metoprolol, that drop blood pressure (5) Afib An EKG was done on the day she complained of chest pain. The baseline had motion artifact (because of her Parkinson's tremor) but probably shows A. fib. It is unknown if she has had A. fib documented before. She has never had an EKG here, to have for comparison. Her heart rate is occasionally documented at being 110, mostly it is under 100. He reconciled medication list shows that she was already on metoprolol 25 mg qpm and 1 baby aspirin daily Plan: Cont 1 baby aspirin daily for her stroke prophylaxis. 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 Plan: Continue to get her OOB daily using a lift No PT or OT rehab have been ordered She can be discharged to her prison residence facility. Social work has contacted them but they need to get a new approval from her Insurances for her to return (9) Sacral decubitus, stage 2 As per photos Plan: Plavix dressing changes daily (10) Hx of HTN As per history. Plan: We are still hold any meds that drop her blood pressure (11) AMS Resolved. She is not as somnolent, is awake, she only answers minimally to strangers but more easily to family, according to the daughter. Plan: Continue to treat the underlying cause for her confusion and somnolence, her infections. (12) Pleuritic chest pain Assessment/Plan: Resolved once the pneumonia was treated (13) Severe sepsis Resolved, along with improved mental status and WBC Plan: Continue with IV antibiotics - Current Meds Current Meds: Current Medications Generic Name Dose Route Start Last Admin Trade Name Freq PRN Reason Stop Dose Admin Acetaminophen 650 mg 10/08/22 20:03 10/11/22 09:27 Acetaminophen 325 Mg Tablet PO 650 mg Q4HR PRN Administration Pain 1 to 4, or Fever Aspirin 81 mg 10/10/22 09:00 10/12/22 10:01 Aspirin Ec 81 Mg Tablet PO 81 mg DAILY MAVIS Administration Carbidopa/Levodopa 1 tab 10/09/22 14:00 10/12/22 21:10 Carbidopa/Levodopa Er 25 Mg/100 Mg Tablet PO 1 tab BID MAVIS Administration Carbidopa/Levodopa 1 tab 10/09/22 14:00 10/13/22 05:14 Carbidopa/Levodopa 25 Mg/100 Mg Tablet PO 1 tab 5XD MAVIS Administration Cholecalciferol 50 mcg 10/10/22 09:00 10/12/22 10:04 Cholecalciferol 25 Mcg Tablet PO 50 mcg DAILY MAVIS Administration Estrogens Conjugated 0.498 applic 10/11/22 09:00 10/11/22 09:59 Estrogens, Conjugated Cream 30 Gm Tube VG 0.5 gm MOFR MAVIS Administration Guaifenesin 600 mg 10/09/22 21:00 10/12/22 21:10 Guaifenesin 600 Mg Tablet PO 600 mg BID MAVIS Administration Ceftriaxone Sodium 1 gm/ 100 mls @ 200 mls/hr 10/12/22 09:00 10/12/22 10:47 Sodium Chloride IV Infused DAILY MAVIS Infusion Lidocaine 1 patch 10/09/22 13:23 10/10/22 10:00 Lidocaine Patch 5% TOP 1 patch DAILY PRN Administration PAIN Metoprolol Succinate 12.5 mg 10/12/22 09:00 10/12/22 10:04 Metoprolol Succinate 25 Mg Tablet PO 12.5 mg DAILY MAVIS Administration Metoprolol Succinate 25 mg 10/11/22 21:00 10/12/22 21:10 Metoprolol Succinate 25 Mg Tablet PO 25 mg QPM MAVIS Administration Mirtazapine 7.5 mg 10/11/22 21:00 10/12/22 21:11 Mirtazapine 15 Mg Tablet PO 7.5 mg QPM MAVIS Administration Multivitamins 1 tab 10/10/22 08:00 10/12/22 10:06 Multivitamin Tablet PO 1 tab DAILYWM MAVIS Administration Ipratropium 2 each 10/09/22 21:00 10/12/22 21:11 [place] [Ipratropium RASHI Not Given [place]] 15 Ml BID MAVIS [place] Patient Own Med (D- 1 each 10/10/22 09:00 10/12/22 11:13 [place] [Azo D- PO Not Given [place]] 500 Mg DAILY MAVIS Capsule) Polyethylene Glycol 17 gm 10/10/22 09:00 10/12/22 10:07 Polyethylene Glycol 3350 17 Gm Packet PO 17 gm DAILY MAVIS Administration Pramipexole Dihydrochloride 0.25 mg 10/11/22 21:00 10/12/22 21:10 Pramipexole 0.25 Mg Tablet PO 0.25 mg QPM MAVIS Administration Senna 17.2 mg 10/10/22 09:00 10/11/22 09:27 Senna 8.6 Mg Tablet PO 17.2 mg DAILY MAVIS Administration Sodium Chloride 10 ml 10/09/22 01:00 10/13/22 01:23 Sodium Chloride Flush 0.9% 10 Ml Syringe IVP 10 ml 0100,0900,1700 MAVIS Administration - Lab Result Fish Bone Diagrams: 10/12/22 04:53 10/12/22 04:53 - Additional Planning My Orders: My Active Orders 10/12/22 09:00 Metoprolol Succinate [Toprol Xl] 12.5 mg PO DAILY cefTRIAXone [Rocephin] 1 gm Sodium Chloride 0.9% Minibag [Normal Saline 0.9% Minibag] 100 ml IV DAILY Subjective - Subjective Patient Reports: Resting Comfortably, No Complaints Objective Vital Signs: Vital Signs - 24 hr 10/12/22 10/13/22 16:00 00:00 Temperature 36.6 C 37 C Heart Rate [ 82 81 Brachial] Respiratory 22 20 Rate Blood Pressure 101/75 103/59 L [Right Brachial artery] O2 Saturation 98 96 Oxygen O2 Source Room air I&O (Last 24 Hrs): Intake and Output Totals x24h 10/11/22 10/12/22 10/13/22 23:59 23:59 23:59 Intake Total 3436.667 980 100 Output Total 50 Balance 3436.667 980 50 General: Alert, No acute distress, Other (Cachectic elederly female sitting in a chair) HEENT: EOMI, Mucous membr. moist/pink Neck: Supple, No JVD Neuro: Alert, Disoriented, Non Focal Cardiovascular: No murmurs Respiratory: No respiratory distress, Breath sounds nml Abdomen: Soft Extremities: No clubbing, No edema, No tenderness/swelling - Results Results: Laboratory Results WBC 6.0 x10^3/uL (4.8-10.8) 10/12/22 04:53 RBC 3.46 10^6/uL (4.20-5.40) L 10/12/22 04:53 Hgb 8.9 g/dL (12.0-16.0) L 10/12/22 04:53 Hct 28.6 % (37.0-47.0) L 10/12/22 04:53 MCV 82.7 fL (81.0-99.0) 10/12/22 04:53 MCH 25.7 pg (27.0-31.0) L 10/12/22 04:53 MCHC 31.1 g/dL (32.0-36.0) L 10/12/22 04:53 RDW 15.1 % (12.0-15.0) H 10/12/22 04:53 Plt Count 126 10^3/uL (130-450) L 10/12/22 04:53 MPV 11.0 fL (7.9-10.8) H 10/12/22 04:53 Neut # (Auto) 4.4 10^3/uL (1.5-6.6) 10/12/22 04:53 Lymph # (Auto) 1.0 10^3/uL (1.5-3.5) L 10/12/22 04:53 Gem # (Auto) 0.4 10^3/uL (0.0-1.0) 10/12/22 04:53 Eos # (Auto) 0.2 10^3/uL (0.0-0.7) 10/12/22 04:53 Baso # (Auto) 0.0 10^3/uL (0.0-0.1) 10/12/22 04:53 Absolute Nucleated RBC 0.00 x10^3/uL 10/12/22 04:53 Total Counted 100 10/08/22 17:56 Band Neuts % (Manual) 10 % (0-10) 10/08/22 17:56 Abnorm Lymph % (Manual) 0 % 10/08/22 17:56 Nucleated RBC % 0.0 /100WBC 10/12/22 04:53 Neutrophils # (Manual) 18.7 10^3/uL (1.5-6.6) H 10/08/22 17:56 Lymphocytes # (Manual) 1.0 10^3/uL (1.5-3.5) L 10/08/22 17:56 Monocytes # (Manual) 0.8 10^3/uL (0.0-1.0) 10/08/22 17:56 Eosinophils # (Manual) 0.0 10^3/uL (0-0.7) 10/08/22 17:56 Basophils # (Manual) 0.0 10^3/uL (0-0.1) 10/08/22 17:56 Differential Comment MANUAL DIFFERENTIAL 10/08/22 17:56 WBC Morphology 1+ TOXIC GRANULATION (NORMAL) 10/08/22 17:56 Platelet Estimate NORMAL (130-450,000) (NORMAL) 10/08/22 17:56 Platelet Morphology NORMAL APPEARANCE (NORMAL) 10/08/22 17:56 RBC Morph Micro Appear NORMAL APPEARANCE (NORMAL) 10/08/22 17:56 PT 14.5 secs (9.9-12.6) H 10/08/22 17:56 INR 1.3 (0.8-1.2) H 10/08/22 17:56 APTT 28.4 secs (24.9-33.3) 10/08/22 17:56 Sodium 143 mmol/L (135-145) 10/12/22 04:53 Potassium 3.3 mmol/L (3.5-5.0) L 10/12/22 04:53 Chloride 109 mmol/L (101-111) 10/12/22 04:53 Carbon Dioxide 27 mmol/L (21-32) 10/12/22 04:53 Anion Gap 7.0 (6-13) 10/12/22 04:53 BUN 14 mg/dL (6-20) 10/12/22 04:53 Creatinine 0.4 mg/dL (0.4-1.0) 10/12/22 04:53 Estimated GFR (MDRD) 150 (>89) 10/12/22 04:53 Glucose 92 mg/dL (70-100) 10/12/22 04:53 Lactic Acid 1.4 mmol/L (0.5-2.2) 10/09/22 01:12 Calcium 8.2 mg/dL (8.5-10.3) L 10/12/22 04:53 Magnesium 1.9 mg/dL (1.7-2.8) 10/10/22 04:46 Total Bilirubin 1.1 mg/dL (0.2-1.0) H 10/08/22 17:56 AST 14 IU/L (10-42) 10/08/22 17:56 ALT < 10 IU/L (10-60) L 10/08/22 17:56 Alkaline Phosphatase 56 IU/L (42-121) 10/08/22 17:56 Troponin I High Sens 9.6 ng/L (2.3-14.8) 10/09/22 15:56 Total Protein 5.5 g/dL (6.7-8.2) L 10/08/22 17:56 Albumin 2.7 g/dL (3.2-5.5) L 10/08/22 17:56 Globulin 2.8 g/dL (2.1-4.2) 10/08/22 17:56 Albumin/Globulin Ratio 1.0 (1.0-2.2) 10/08/22 17:56 Lipase 21 U/L (22-51) L 10/08/22 17:56 Urine Color YELLOW 10/08/22 17:41 Urine Clarity TURBID (CLEAR) 10/08/22 17:41 Urine pH 7.5 PH (5.0-7.5) 10/08/22 17:41 Ur Specific [place] 1.020 (1.002-1.030) 10/08/22 17:41 Urine Protein >=300 mg/dL (NEGATIVE) H 10/08/22 17:41 Urine Glucose (UA) NEGATIVE mg/dL (NEGATIVE) 10/08/22 17:41 Urine Ketones TRACE mg/dL (NEGATIVE) 10/08/22 17:41 Urine Occult Blood LARGE (NEGATIVE) H 10/08/22 17:41 Urine Nitrite NEGATIVE (NEGATIVE) 10/08/22 17:41 Urine Bilirubin NEGATIVE (NEGATIVE) 10/08/22 17:41 Urine Urobilinogen 1 (NORMAL) E.U./dL (NORMAL) 10/08/22 17:41 Ur Leukocyte Esterase SMALL (NEGATIVE) H 10/08/22 17:41 Urine RBC 11-25 /HPF (0-5) H 10/08/22 17:41 Urine WBC >25 /HPF (0-5) H 10/08/22 17:41 Ur Squamous Epith Cells RARE Squamous (<= Few) 10/08/22 17:41 Urine Bacteria Many /HPF (None Seen) H 10/08/22 17:41 Ur Microscopic Review INDICATED 10/08/22 17:41 Urine Culture Comments INDICATED 10/08/22 17:41 Nasal Adenovirus (PCR) NOT DETECTED 10/08/22 17:46 Nasal B. parapertussis DNA (PCR) NOT DETECTED 10/08/22 17:46 Nasal Coronavir 229E PCR NOT DETECTED 10/08/22 17:46 Nasal Coronavir HKU1 PCR NOT DETECTED 10/08/22 17:46 Nasal Coronavir NL63 PCR NOT DETECTED 10/08/22 17:46 Nasal Coronavir OC43 PCR NOT DETECTED 10/08/22 17:46 Nasal Enterovir/Rhinovir PCR NOT DETECTED 10/08/22 17:46 Nasal Influenza B PCR NOT DETECTED 10/08/22 17:46 Nasal Influenza A PCR NOT DETECTED 10/08/22 17:46 Nasal Parainfluen 1 PCR NOT DETECTED 10/08/22 17:46 Nasal Parainfluen 2 PCR NOT DETECTED 10/08/22 17:46 Nasal Parainfluen 3 PCR NOT DETECTED 10/08/22 17:46 Nasal Parainfluen 4 PCR NOT DETECTED 10/08/22 17:46 Nasal RSV (PCR) DETECTED A 10/08/22 17:46 Nasal B.pertussis DNA PCR NOT DETECTED 10/08/22 17:46 Nasal C.pneumoniae (PCR) NOT DETECTED 10/08/22 17:46 Rashi Human Metapneumo PCR NOT DETECTED 10/08/22 17:46 Nasal M.pneumoniae (PCR) NOT DETECTED 10/08/22 17:46 Nasal SARS-CoV-2 (PCR) NOT DETECTED 10/08/22 17:46 SARS-CoV-2 (PCR) NOT DETECTED 10/11/22 11:50
[2022-10-13] MEDS: polyethylene glycoL 3350 17 GM PACKET PO SCH (08:45)
[2022-10-13] MEDS: METOPROLOL SUCCINATE 25 MG TABLET PO SCH ×2 (08:45→22:04)
[2022-10-13] MEDS: ASPIRIN EC 81 MG TABLET PO SCH (08:45)
[2022-10-13] MEDS: CARBIDOPA/LEVODOPA ER 25 MG/100 MG TABLET PO SCH ×2 (08:45→22:03)
[2022-10-13] MEDS: CHOLECALCIFEROL 25 MCG TABLET PO SCH (08:46)
[2022-10-13] MEDS: guaiFENesin 600 MG TABLET PO SCH ×2 (08:46→22:03)
[2022-10-13] MEDS: MULTIVITAMIN TABLET PO SCH (08:46)
[2022-10-13] MEDS: SENNA 8.6 MG TABLET PO SCH (08:46)
[2022-10-13] MEDS: cefTRIAXone 1 GM in SODIUM CHLORIDE 0.9% MINIBAG 100 ML IV SCH (08:46)
[2022-10-13] MEDS: D MANNOSE 500 MG PO SCH (08:50)
[2022-10-13] MEDS: IPRATROPIUM BROMIDE NAS SCH ×2 (08:50→22:06)
[2022-10-13] MEDS: ACETAMINOPHEN 325 MG TABLET PO PRN (08:57)
[2022-10-13] MEDS: MIRTAZAPINE 15 MG TABLET PO SCH (22:03)
[2022-10-13] MEDS: PRAMIPEXOLE 0.25 MG TABLET PO SCH (22:04)
[2022-10-14] MEDS: SODIUM CHLORIDE FLUSH 0.9% 10 ML SYRINGE IVP SCH ×3 (00:31→18:14)
[2022-10-14] MEDS: ACETAMINOPHEN 325 MG TABLET PO PRN (06:12)
[2022-10-14] MEDS: CARBIDOPA/LEVODOPA 25 MG/100 MG TABLET PO SCH ×5 (06:12→21:06)
[2022-10-14] MEDS: MULTIVITAMIN TABLET PO SCH (08:43)
[2022-10-14] MEDS: ASPIRIN EC 81 MG TABLET PO SCH (08:44)
[2022-10-14] MEDS: METOPROLOL SUCCINATE 25 MG TABLET PO SCH ×2 (08:44→21:04)
[2022-10-14] MEDS: guaiFENesin 600 MG TABLET PO SCH ×2 (08:44→21:04)
[2022-10-14] MEDS: CHOLECALCIFEROL 25 MCG TABLET PO SCH (08:44)
[2022-10-14] MEDS: cefTRIAXone 1 GM in SODIUM CHLORIDE 0.9% MINIBAG 100 ML IV SCH (08:45)
[2022-10-14] MEDS: IPRATROPIUM BROMIDE NAS SCH ×2 (08:46→21:05)
[2022-10-14] MEDS: polyethylene glycoL 3350 17 GM PACKET PO SCH (08:47)
[2022-10-14] MEDS: D MANNOSE 500 MG PO SCH (08:47)
[2022-10-14] MEDS: SENNA 8.6 MG TABLET PO SCH (08:47)
[2022-10-14] MEDS: CARBIDOPA/LEVODOPA ER 25 MG/100 MG TABLET PO SCH ×2 (08:51→21:04)
--- NOTE | 2022-10-14 15:50 | PROVIDER PROGRESS NOTE ---
Assessment/Plan - Problem List (1) E. coli UTI Assessment/Plan: Abnormal UA at admission This appeared to be the source of her sepsis and AMS at presentation. Blood cultures are negative to date Her urine culture has grown E. coli and sensitivities are available: It is resistant to the quinolones, sens to Keflex, Ceftriaxone and Bactrim Plan: She will be changed from Ceftriaxone iv to Ceftin po and will finish a course of antibx for the UTI after tomorrow's meds (2) CAP This patient is a resident of a longterm. When she complained of a new cough and pleuritic chest pain after admission, on 10/09, a chest x-ray was repeated and this showed a new pneumonia on the left side. It was not seen on the admission CXR, probably because she was dehydrated. She never brought up any sputum to send for culture. Blood cultures have been negative to date She was already on ceftriaxone for UTI. Zithromax was added and she completed a course of Zithro . Plan: She has been medically clear for DCh (3) RSV infection Her chest x-ray did not show any infiltrate at admission, however the daughter reported on day #2 that the patient complained of a cough that she cannot expectorate. The repeat chest x-ray did show a new left-sided infiltrate. Mucinex was started. Plan: Cont Mucinex if needed. (4) Hypotension BP was running 90 syst, today is 100 syst Her "soft" BP persisted and was consistent with infection and volume depletion. We did obtain an Echocardiogram which showed: Normal LV and RV chamber sizes, normal LV and RV systolic function. She has mild mitral and tricuspid regurgitation, PA pressure 35 to 40 mmHg and a patent foramen ovale present with [id number] shunt Plan: We tapered her IV fluids to off, since she is eating and drinking well Will continue to hold any meds other than Metoprolol, that drop blood pressure (5) Afib An EKG was done on the day she complained of chest pain. The baseline had motion artifact (because of her Parkinson's tremor) but probably shows A. fib. It is unknown if she has had A. fib documented before. She has never had an EKG here, to have for comparison. Her heart rate is occasionally documented at being 110, mostly it is under 100. He reconciled medication list shows that she was already on metoprolol 25 mg qpm and 1 baby aspirin daily Plan: Cont 1 baby aspirin daily for her stroke prophylaxis. 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 This is a new finding for this pt Plan: She is not a candidate for PFO closure, given her age, comorbidities and no aggressive measures/Comfort Care desired. (8) Bedbound Report was received that she is bedbound, transfers to a wheelchair using a Keri lift. Plan: Continue to get her OOB daily using a lift No PT or OT rehab have been ordered She can be discharged to her longterm residence facility. Social work has contacted them but they need to get a new approval from her Insurances for her to return (9) Sacral decubitus, stage 2 As per photos Plan: Topical dressing changes daily (10) Hx of HTN As per history. Plan: We are still hold any meds that drop her blood pressure (11) AMS Resolved. She is not as somnolent, is awake, she only answers minimally to strangers but more easily to family, according to the daughter. Plan: We ar continuing to treat the underlying cause for her confusion and somnolence, her infections. (12) Pleuritic chest pain Assessment/Plan: Resolved once the pneumonia was treated (13) Severe sepsis Resolved, along with improved mental status and WBC Plan: Continue with IV antibiotics - Current Meds Current Meds: Current Medications Generic Name Dose Route Start Last Admin Trade Name Freq PRN Reason Stop Dose Admin Acetaminophen 650 mg 10/08/22 20:03 10/14/22 06:12 Acetaminophen 325 Mg Tablet PO 650 mg Q4HR PRN Administration Pain 1 to 4, or Fever Aspirin 81 mg 10/10/22 09:00 10/14/22 08:44 Aspirin Ec 81 Mg Tablet PO 81 mg DAILY MAVIS Administration Carbidopa/Levodopa 1 tab 10/09/22 14:00 10/14/22 08:51 Carbidopa/Levodopa Er 25 Mg/100 Mg Tablet PO 1 tab BID MAVIS Administration Carbidopa/Levodopa 1 tab 10/09/22 14:00 10/14/22 13:53 Carbidopa/Levodopa 25 Mg/100 Mg Tablet PO 1 tab 5XD MAVIS Administration Cholecalciferol 50 mcg 10/10/22 09:00 10/14/22 08:44 Cholecalciferol 25 Mcg Tablet PO 50 mcg DAILY MAVIS Administration Guaifenesin 600 mg 10/09/22 21:00 10/14/22 08:44 Guaifenesin 600 Mg Tablet PO 600 mg BID MAVIS Administration Ceftriaxone Sodium 1 gm/ 100 mls @ 200 mls/hr 10/12/22 09:00 10/14/22 09:15 Sodium Chloride IV Infused DAILY MAVIS Infusion Lidocaine 1 patch 10/09/22 13:23 10/10/22 10:00 Lidocaine Patch 5% TOP 1 patch DAILY PRN Administration PAIN Metoprolol Succinate 12.5 mg 10/12/22 09:00 10/14/22 08:44 Metoprolol Succinate 25 Mg Tablet PO 12.5 mg DAILY MAVIS Administration Metoprolol Succinate 25 mg 10/11/22 21:00 10/13/22 22:04 Metoprolol Succinate 25 Mg Tablet PO 25 mg QPM MAVIS Administration Mirtazapine 7.5 mg 10/11/22 21:00 10/13/22 22:03 Mirtazapine 15 Mg Tablet PO 7.5 mg QPM MAVIS Administration Multivitamins 1 tab 10/10/22 08:00 10/14/22 08:43 Multivitamin Tablet PO 1 tab DAILYWM MAVIS Administration Ipratropium 2 each 10/09/22 21:00 10/14/22 08:46 [place] [Ipratropium RASHI Not Given [place]] 15 Ml BID MAVIS Early Patient Own Med (D- 1 each 10/10/22 09:00 10/14/22 08:47 [place] [Azo D- PO Not Given [place]] 500 Mg DAILY [facility] Capsule) Polyethylene Glycol 17 gm 10/10/22 09:00 10/14/22 08:47 Polyethylene Glycol 3350 17 Gm Packet PO Not Given DAILY MAVIS Pramipexole Dihydrochloride 0.25 mg 10/11/22 21:00 10/13/22 22:04 Pramipexole 0.25 Mg Tablet PO 0.25 mg QPM MAVIS Administration Senna 17.2 mg 10/10/22 09:00 01/16/23 08:47 Senna 8.6 Mg Tablet PO Not Given DAILY [facility] Sodium Chloride 10 ml 10/09/22 01:00 10/14/22 08:47 Sodium Chloride Flush 0.9% 10 Ml Syringe IVP 10 ml 0100,0900,1700 [facility] Administration - Lab Result Fish Bone Diagrams: 10/12/22 04:53 10/12/22 04:53 - Additional Planning My Orders: My Active Orders 10/14/22 21:00 Estrogens, Conjugated Cream [Premarin Cream] 0.498 applic VG MOFR Subjective - Subjective Patient Reports: Resting Comfortably, No Complaints Objective Vital Signs: Vital Signs - 24 hr 10/13/22 10/13/22 10/14/22 17:54 22:16 00:21 Temperature 36.4 C L 36.5 C Heart Rate [ 118 H 79 70 Brachial] Respiratory 24 20 Rate Blood Pressure 121/80 98/62 94/61 [Right Brachial artery] O2 Saturation 98 96 10/14/22 08:20 Temperature 36.4 C L Heart Rate [ 68 Brachial] Respiratory 20 Rate Blood Pressure 112/70 [Right Brachial artery] O2 Saturation 99 Oxygen O2 Source Room air I&O (Last 24 Hrs): Intake and Output Totals x24h 10/12/22 10/13/22 10/14/22 23:59 23:59 23:59 Intake Total 980 1090 460 Output Total 200 350 Balance 980 890 110 General: Alert HEENT: EOMI Neck: Supple Neuro: Alert, Disoriented Cardiovascular: No murmurs Respiratory: No respiratory distress, Breath sounds nml Abdomen: Soft Extremities: No edema - Results Results: Laboratory Results WBC 6.0 x10^3/uL (4.8-10.8) 10/12/22 04:53 RBC 3.46 10^6/uL (4.20-5.40) L 10/12/22 04:53 Hgb 8.9 g/dL (12.0-16.0) L 10/12/22 04:53 Hct 28.6 % (37.0-47.0) L 10/12/22 04:53 MCV 82.7 fL (81.0-99.0) 10/12/22 04:53 MCH 25.7 pg (27.0-31.0) L 10/12/22 04:53 MCHC 31.1 g/dL (32.0-36.0) L 10/12/22 04:53 RDW 15.1 % (12.0-15.0) H 10/12/22 04:53 Plt Count 126 10^3/uL (130-450) L 10/12/22 04:53 MPV 11.0 fL (7.9-10.8) H 10/12/22 04:53 Neut # (Auto) 4.4 10^3/uL (1.5-6.6) 10/12/22 04:53 Lymph # (Auto) 1.0 10^3/uL (1.5-3.5) L 10/12/22 04:53 Ada # (Auto) 0.4 10^3/uL (0.0-1.0) 10/12/22 04:53 Eos # (Auto) 0.2 10^3/uL (0.0-0.7) 10/12/22 04:53 Baso # (Auto) 0.0 10^3/uL (0.0-0.1) 10/12/22 04:53 Absolute Nucleated RBC 0.00 x10^3/uL 10/12/22 04:53 Total Counted 100 10/08/22 17:56 Band Neuts % (Manual) 10 % (0-10) 10/08/22 17:56 Abnorm Lymph % (Manual) 0 % 10/08/22 17:56 Nucleated RBC % 0.0 /100WBC 10/12/22 04:53 Neutrophils # (Manual) 18.7 10^3/uL (1.5-6.6) H 10/08/22 17:56 Lymphocytes # (Manual) 1.0 10^3/uL (1.5-3.5) L 10/08/22 17:56 Monocytes # (Manual) 0.8 10^3/uL (0.0-1.0) 10/08/22 17:56 Eosinophils # (Manual) 0.0 10^3/uL (0-0.7) 10/08/22 17:56 Basophils # (Manual) 0.0 10^3/uL (0-0.1) 10/08/22 17:56 Differential Comment MANUAL DIFFERENTIAL 10/08/22 17:56 WBC Morphology 1+ TOXIC GRANULATION (NORMAL) 10/08/22 17:56 Platelet Estimate NORMAL (130-450,000) (NORMAL) 10/08/22 17:56 Platelet Morphology NORMAL APPEARANCE (NORMAL) 10/08/22 17:56 RBC Morph Micro Appear NORMAL APPEARANCE (NORMAL) 10/08/22 17:56 PT 14.5 secs (9.9-12.6) H 10/08/22 17:56 INR 1.3 (0.8-1.2) H 10/08/22 17:56 APTT 28.4 secs (24.9-33.3) 10/08/22 17:56 Sodium 143 mmol/L (135-145) 10/12/22 04:53 Potassium 3.3 mmol/L (3.5-5.0) L 10/12/22 04:53 Chloride 109 mmol/L (101-111) 10/12/22 04:53 Carbon Dioxide 27 mmol/L (21-32) 10/12/22 04:53 Anion Gap 7.0 (6-13) 10/12/22 04:53 BUN 14 mg/dL (6-20) 10/12/22 04:53 Creatinine 0.4 mg/dL (0.4-1.0) 10/12/22 04:53 Estimated GFR (MDRD) 150 (>89) 10/12/22 04:53 Glucose 92 mg/dL (70-100) 10/12/22 04:53 Lactic Acid 1.4 mmol/L (0.5-2.2) 10/09/22 01:12 Calcium 8.2 mg/dL (8.5-10.3) L 10/12/22 04:53 Magnesium 1.9 mg/dL (1.7-2.8) 10/10/22 04:46 Total Bilirubin 1.1 mg/dL (0.2-1.0) H 10/08/22 17:56 AST 14 IU/L (10-42) 10/08/22 17:56 ALT < 10 IU/L (10-60) L 10/08/22 17:56 Alkaline Phosphatase 56 IU/L (42-121) 10/08/22 17:56 Troponin I High Sens 9.6 ng/L (2.3-14.8) 10/09/22 15:56 Total Protein 5.5 g/dL (6.7-8.2) L 10/08/22 17:56 Albumin 2.7 g/dL (3.2-5.5) L 10/08/22 17:56 Globulin 2.8 g/dL (2.1-4.2) 10/08/22 17:56 Albumin/Globulin Ratio 1.0 (1.0-2.2) 10/08/22 17:56 Lipase 21 U/L (22-51) L 10/08/22 17:56 Urine Color YELLOW 10/08/22 17:41 Urine Clarity TURBID (CLEAR) 10/08/22 17:41 Urine pH 7.5 PH (5.0-7.5) 10/08/22 17:41 Ur Specific [place] 1.020 (1.002-1.030) 10/08/22 17:41 Urine Protein >=300 mg/dL (NEGATIVE) H 10/08/22 17:41 Urine Glucose (UA) NEGATIVE mg/dL (NEGATIVE) 10/08/22 17:41 Urine Ketones TRACE mg/dL (NEGATIVE) 10/08/22 17:41 Urine Occult Blood LARGE (NEGATIVE) H 10/08/22 17:41 Urine Nitrite NEGATIVE (NEGATIVE) 10/08/22 17:41 Urine Bilirubin NEGATIVE (NEGATIVE) 10/08/22 17:41 Urine Urobilinogen 1 (NORMAL) E.U./dL (NORMAL) 10/08/22 17:41 Ur Leukocyte Esterase SMALL (NEGATIVE) H 10/08/22 17:41 Urine RBC 11-25 /HPF (0-5) H 10/08/22 17:41 Urine WBC >25 /HPF (0-5) H 10/08/22 17:41 Ur Squamous Epith Cells RARE Squamous (<= Few) 10/08/22 17:41 Urine Bacteria Many /HPF (None Seen) H 10/08/22 17:41 Ur Microscopic Review INDICATED 10/08/22 17:41 Urine Culture Comments INDICATED 10/08/22 17:41 Nasal Adenovirus (PCR) NOT DETECTED 10/08/22 17:46 Nasal B. parapertussis DNA (PCR) NOT DETECTED 10/08/22 17:46 Nasal Coronavir 229E PCR NOT DETECTED 10/08/22 17:46 Nasal Coronavir HKU1 PCR NOT DETECTED 10/08/22 17:46 Nasal Coronavir NL63 PCR NOT DETECTED 10/08/22 17:46 Nasal Coronavir OC43 PCR NOT DETECTED 10/08/22 17:46 Nasal Enterovir/Rhinovir PCR NOT DETECTED 10/08/22 17:46 Nasal Influenza B PCR NOT DETECTED 10/08/22 17:46 Nasal Influenza A PCR NOT DETECTED 10/08/22 17:46 Nasal Parainfluen 1 PCR NOT DETECTED 10/08/22 17:46 Nasal Parainfluen 2 PCR NOT DETECTED 10/08/22 17:46 Nasal Parainfluen 3 PCR NOT DETECTED 10/08/22 17:46 Nasal Parainfluen 4 PCR NOT DETECTED 10/08/22 17:46 Nasal RSV (PCR) DETECTED A 10/08/22 17:46 Nasal B.pertussis DNA PCR NOT DETECTED 10/08/22 17:46 Nasal C.pneumoniae (PCR) NOT DETECTED 10/08/22 17:46 Rashi Human Metapneumo PCR NOT DETECTED 10/08/22 17:46 Nasal M.pneumoniae (PCR) NOT DETECTED 10/08/22 17:46 Nasal SARS-CoV-2 (PCR) NOT DETECTED 10/08/22 17:46 SARS-CoV-2 (PCR) NOT DETECTED 10/11/22 11:50
[2022-10-14] MEDS ORDERED: ESTROGENS, CONJUGATED CREAM 30 GM TUBE VG SCH (21:00)
[2022-10-14] MEDS: MIRTAZAPINE 15 MG TABLET PO SCH (21:05)
[2022-10-14] MEDS: PRAMIPEXOLE 0.25 MG TABLET PO SCH (21:05)
[2022-10-15] MEDS: SODIUM CHLORIDE FLUSH 0.9% 10 ML SYRINGE IVP SCH ×2 (01:53→08:28)
[2022-10-15] MEDS: CARBIDOPA/LEVODOPA 25 MG/100 MG TABLET PO SCH ×3 (05:53→13:30)
[2022-10-15] MEDS: METOPROLOL SUCCINATE 25 MG TABLET PO SCH (08:23)
[2022-10-15] MEDS: ASPIRIN EC 81 MG TABLET PO SCH (08:23)
[2022-10-15] MEDS: CHOLECALCIFEROL 25 MCG TABLET PO SCH (08:24)
[2022-10-15] MEDS: MULTIVITAMIN TABLET PO SCH (08:24)
[2022-10-15] MEDS: guaiFENesin 600 MG TABLET PO SCH (08:24)
[2022-10-15] MEDS: polyethylene glycoL 3350 17 GM PACKET PO SCH (08:27)
[2022-10-15] MEDS: CARBIDOPA/LEVODOPA ER 25 MG/100 MG TABLET PO SCH (08:27)
[2022-10-15] MEDS: IPRATROPIUM BROMIDE NAS SCH (08:27)
[2022-10-15] MEDS: D MANNOSE 500 MG PO SCH (08:27)
[2022-10-15] MEDS: SENNA 8.6 MG TABLET PO SCH (08:28)
--- NOTE | 2022-10-15 12:48 | Discharge Plan ---
"Discharge Plan for SNF / [facility] - Discharge Plan And Transition Orders Problem Reviewed?: Yes Disposition: 01 Home, Self Care Condition: Stable Allergies and Adverse Reactions: Allergies Allergy/AdvReac Type Severity Reaction Status Date / Time alendronate sodium Allergy Unknown Verified 08/07/21 19:51 [From Fosamax] amoxicillin Allergy Unknown Verified 08/07/21 19:51 oxycodone Allergy Unknown Verified 08/07/21 19:51 risedronate sodium Allergy Unknown Verified 08/07/21 19:51 Sulfa (Sulfonamide Allergy Rash Verified 08/07/21 19:51 Antibiotics) tramadol Allergy Unknown Verified 08/07/21 19:51 Health Concerns: 81-year-old female who has a past medical history of hypertension, hyperlipidemia, dementia and lives at a shelter facility who was brought in by ambulance from the shelter facility due to weakness and altered mental status. She is wheelchair-bound at baseline. She was unable to provide a history. Her blood pressure was in the 60s systolic with a white cell count of 20, lactic acid 2.2. Source was urine. She responded to antibiotic therapy. Urine culture grew out E. coli. She was switched to p.o. cefuroxime on October 14. Plan of Treatment: When she was initially admitted the presumptive cause of her infection was thought to be pneumonia as well as UTI. As such she received azithromycin and ceftriaxone. Ceftriaxone was changed to cefuroxime. Blood pressure normalized. White cell count started at 20.5 and was 6.0 by discharge. She has received a total of 7 days of antibiotics. Those will not be continued at her residential facility Care Goals: To return to her residential facility. No change in medications. Assessment: Cooperative, elderly female with moderate dementia. Unable to participate in care planning. - SNF / [facility] Transition Orders Admit to (Facility): [facility] Under the care of (Name): [facility] Discharge Diagnosis: 1. Sepsis with shock 2. E. coli UTI 3. Healthcare associated pneumonia 4. RSV infection 5. Chronic atrial fibrillation 6. Dementia due to Parkinson's disease with behavioral disturbance (hallucinations) 7. Patent foramen ovale 8. Bedbound status 9. Sacral decubitus, stage II, present on admission 10. Hypertension 11. Metabolic encephalopathy Weight on admission and: Weekly Other Notification Orders: Call PCP immediately if patient develops dyspnea, chest pain/tightness or edema. House Bowel Program: Yes Additional Bowel Program Orders: If no BM after 2 days, nurse may give M.O.M. 30ml PO PRN and/or ducolax Supp 1 TX and/or CARO 250mg P.O., and/or senna 1-2 tabs PO. On day 3 nurse may give repeat above order until residents constipation is resolved. Annual Influenza Vaccine (between May 30 and December 27): Yes Two-step PPD per [facility] [phone] or approved exception documents: Yes Medication Orders: PLEASE REFER TO THE DISCHARGE MEDICATION LIST. Insulin Orders?: No - Diet Type: Geriatric Texture: Mech soft Liquids: Thin May have monthly special meal: Yes - Therapies | Activity Rehabilitation Potential: Return to independent living Activity: Activity as Tolerated"
[2022-10-15 15:52] VITALS: BP 91/57
--- NOTE | 2022-10-15 19:43 | DISCHARGE SUMMARY ---
"Discharge Summary Admit Date: 10/08/22 Discharge Date: 10/15/22 Discharging Provider: Natalie Cunha MD Primary Care Provider: [facility] Team Health Code Status: Do Not Attempt Resuscitation Condition at Discharge: Stable Discharge Disposition: 01 Home, Self Care - DIAGNOSES Discharge Diagnoses with Status of Each Condition: 1. Sepsis with shock 2. E. coli UTI 3. Healthcare associated pneumonia 4. RSV infection 5. Chronic atrial fibrillation 6. Dementia due to Parkinson's disease with behavioral disturbance (hallucinations) 7. Patent foramen ovale 8. Bedbound status 9. Sacral decubitus, stage II, present on admission 10. Hypertension 11. Metabolic encephalopathy - HPI History of Present Illness: 81 y old female with PMH HTN, HLP BIBA fron retirement due to weakness and AMS. Pt is wheelchair bound at baseline. Pt is unable to porovide history at this time so most of history is from ER physician and ER record.Per EMS, her DINAH was in 60`s systolic. She was given IVF. Pt is alert and awake at the time of my examination.Able to move all extremities. Pt also has cough On Presentaion, pt was quite hypotensive. She was given NS 500 cc IV bolus X 1. She is currently getting NS @ 150 cc/h. Her systolic BP is 91. Labs showed WBC 20, lactic acid 2.2. UA showed UTI RSV positive CXR showed no acute abnormalities Pt is DNR Pt is being admitted due to Severe sepsis, UTI, AMS, weakness, RSV infection. 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 Follow-up PA lateral chest x-ray recommended or CT chest recommended to ensure resolution and to exclude underlying neoplasm. Urine culture with E. coli Blood culture negative after 5 days - HOSPITAL COURSE Hospital Course: When she was initially admitted the presumptive cause of her infection was thought to be pneumonia as well as UTI. As such she received azithromycin and ceftriaxone. Ceftriaxone was changed to cefuroxime. Blood pressure normalized. White cell count started at 20.5 and was 6.0 by discharge. Blood cultures were negative and urine culture grew out E. coli. She had some visual hallucinations on top of her baseline dementia.She has received a total of 7 days of antibiotics. Those will not be continued at her residential facility Care Goals: To return to her residential facility. No change in medications. Assessment: Cooperative, elderly female with moderate dementia. Unable to participate in c are planning. At discharge temperature was 36.1. Heart rate 62. Blood pressure 105/73. Respirations 19. 99% on room air. She was an alert cooperative elderly female but had no idea where she was, why she was here, or what it happened. Neck was supple. Lungs had coarse upper airway breath sounds and diminished at bases, but no respiratory distress or tachypnea. Abdomen was soft, nontender. She is incontinent of urine and has a pure wick catheter attached to her. She is very hard of hearing, has no idea where she is. Extremities have some trace edema. She is able to sit up on the bed with 2 assist, and dangle her feet but she does not stand to walk. skilled nursing orders were written at discharge and greater than 30 minutes was spent coordinating discharge. Potassium was supplemented before she was discharged from the hospital for the low potassium seen on this morning's lab. - ALLERGIES Allergies/Adverse Reactions: Allergies Allergy/AdvReac Type Severity Reaction Status Date / Time alendronate sodium Allergy Unknown Verified 08/07/21 19:51 [From Fosamax] amoxicillin Allergy Unknown Verified 08/07/21 19:51 oxycodone Allergy Unknown Verified 08/07/21 19:51 risedronate sodium Allergy Unknown Verified 08/07/21 19:51 Sulfa (Sulfonamide Allergy Rash Verified 08/07/21 19:51 Antibiotics) tramadol Allergy Unknown Verified 08/07/21 19:51 - MEDICATIONS Home Medications: Ambulatory Orders Medication Instructions Recorded Confirmed Carbidopa/Levodopa [Carbidopa-Levo 1 tab PO BID 01/26/17 10/09/22 ER 25-100 Tab] Cholecalciferol (Vitamin D3) 2,000 unit PO DAILY 01/26/17 10/09/22 [Vitamin D3] Ipratropium [place] 2 sprays RASHI BID 01/26/17 10/09/22 Mirtazapine 7.5 mg PO QPM 01/26/17 10/09/22 Pramipexole [Mirapex] 0.25 mg PO QPM 01/26/17 10/09/22 Acetaminophen [Tylenol] 650 mg PO Q4H PRN 10/09/22 10/09/22 Aspirin [Aspirin EC] 81 mg PO DAILY 10/09/22 10/09/22 Carbidopa/Levodopa 25/100 [Sinemet 1 tab PO 5XD 10/09/22 10/09/22 25 mg/100 mg] D-Mannose [Azo D-Mannose] 500 mg PO DAILY 10/09/22 10/09/22 Estrogens, Conjugated Cream 0.5 g VG MOFR 10/09/22 10/09/22 [Premarin Cream] Lidocaine Patch 5% [Lidoderm Patch] 1 patch TOP DAILY PRN 10/09/22 10/09/22 Metoprolol Succinate [Toprol Xl] 25 mg PO QPM 10/09/22 10/09/22 Sennosides [Senna] 17.2 mg PO DAILY 10/09/22 10/09/22 polyethylene glycoL 3350 [Miralax] 17 g PO DAILY 10/09/22 10/09/22 - LABS Result Diagrams: 10/12/22 04:53 10/12/22 04:53"
== END 2022-10-15 16:07 | disposition home or self-care (01) | DRG 871 ==
LOC: EDUNIT# → ED 17:11 → MS2 20:03
PROVIDERS: ADMIT Internal Medicine; ATTEND Specialist
DX: A41.9 Sepsis, unspecified organism (principal); N30.00 Acute cystitis without hematuria; I95.9 Hypotension, unspecified; A41.51 Sepsis due to Escherichia coli [E. coli]; G93.41 Metabolic encephalopathy; J18.9 Pneumonia, unspecified organism; R65.21 Severe sepsis with septic shock; R63.0 Anorexia; R64 Cachexia; J22 Unspecified acute lower respiratory infection; N39.0 Urinary tract infection, site not specified; I48.20 Chronic atrial fibrillation, unspecified; Z68.1 Body mass index [BMI] 19.9 or less, adult; F02.82 Dementia in other diseases classified elsewhere, unspecified severity, with psychotic disturbance; F02.818 Dementia in other diseases classified elsewhere, unspecified severity, with other behavioral disturbance; Q21.12 Patent foramen ovale; G20 Parkinson's disease; L89.152 Pressure ulcer of sacral region, stage 2; I10 Essential (primary) hypertension; I25.2 Old myocardial infarction; E78.00 Pure hypercholesterolemia, unspecified; M19.90 Unspecified osteoarthritis, unspecified site; M81.0 Age-related osteoporosis without current pathological fracture; B97.4 Respiratory syncytial virus as the cause of diseases classified elsewhere; J06.9 Acute upper respiratory infection, unspecified; Y95 Nosocomial condition; Z20.822 Contact with and (suspected) exposure to COVID-19; Z66 Do not resuscitate; Z74.01 Bed confinement status; Z79.82 Long term (current) use of aspirin; Z79.890 Hormone replacement therapy; Z79.899 Other long term (current) drug therapy; Z88.0 Allergy status to penicillin; Z88.2 Allergy status to sulfonamides; Z88.5 Allergy status to narcotic agent; Z88.8 Allergy status to other drugs, medicaments and biological substances; Z99.3 Dependence on wheelchair
CPT/HCPCS: 36415; 51701; 71045; 80048; 80053; 81001; 83605; 83690; 83735; 84484; 85025; 85610; 85730; 87040; 87086; 87181; 87633; 87635; 93005; 93306; 96361; 96374; 99285; A9270; 81003

== ENCOUNTER 2022-12-22 08:37 | Outpatient (CLI) | payer MEDICARE, MEDICAID | END 2022-12-22 23:59 | disposition critical access hospital (66) | LOC: EMS 08:37 | DX: U07.1 COVID-19 (principal); R06.02 Shortness of breath; I95.9 Hypotension, unspecified; R50.9 Fever, unspecified; R41.82 Altered mental status, unspecified | CPT/HCPCS: A0425; A0429 ==

== ENCOUNTER 2022-12-22 08:43 | Inpatient (IN) | payer MEDICARE, MEDICAID ==
[2022-12-22] MEDS ORDERED: SODIUM CHLORIDE 0.9% 1,000 ML IV STA ×3 (08:56→09:48)
--- NOTE | 2022-12-22 09:00 | ED Physician Documentation ---
History of Present Illness - Stated complaint Stated Complaint: ALOC/HYPOTENSION - History obtained from History obtained from: Patient, Family, EMS - History of Present Illness Pain level max: 0 Pain level now: 0 - Additonal information Additional information: Patient is an 87-year-old female who lives at LT[facility], [facility]. She has a history of dementia, Parkinson's, behavioral disturbance, history of septic shock in September of this year. Patient is DNR with limited interventions on her POLST form. EMS states that they were called today for decreased mental status and low blood pressure. They state that she has been diagnosed with COVID but are unsure when she was diagnosed. They were also told that she had a temperature of 100.3 today. I contacted the patient's daughter, Teresa, upon arrival to the emergency department. She states that her mother was diagnosed with COVID 1 week ago. She states that she would like everything done for her mother, she states that the patient is DNR, would not want intubation. We will start with IV fluids. 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: Hysterectomy - Present Medications Home Medications: Ambulatory Orders Medication Instructions Recorded Confirmed Carbidopa/Levodopa [Carbidopa-Levo 1 tab PO BID 01/26/17 12/22/22 ER 25-100 Tab] Cholecalciferol (Vitamin D3) 2,000 unit PO DAILY 01/26/17 12/22/22 [Vitamin D3] Ipratropium [place] 2 sprays RASHI BID 01/26/17 12/22/22 Mirtazapine 7.5 mg PO QPM 01/26/17 12/22/22 Pramipexole [Mirapex] 0.25 mg PO QPM 01/26/17 12/22/22 Acetaminophen [Tylenol] 650 mg PO Q4H PRN 10/09/22 12/22/22 Aspirin [Aspirin EC] 81 mg PO DAILY 10/09/22 12/22/22 Carbidopa/Levodopa 25/100 [Sinemet 1 tab PO 5XD 10/09/22 12/22/22 25 mg/100 mg] D-Mannose [Azo D-Mannose] 500 mg PO DAILY 10/09/22 12/22/22 Estrogens, Conjugated Cream 0.5 g VG MOFR 10/09/22 12/22/22 [Premarin Cream] Lidocaine Patch 5% [Lidoderm Patch] 1 patch TOP DAILY PRN 10/09/22 12/22/22 Metoprolol Succinate [Toprol Xl] 25 mg PO QPM 10/09/22 12/22/22 Sennosides [Senna] 17.2 mg PO DAILY 10/09/22 12/22/22 polyethylene glycoL 3350 [Miralax] 17 g PO DAILY PRN 10/09/22 12/22/22 - Allergies Allergies/Adverse Reactions: Allergies Allergy/AdvReac Type Severity Reaction Status Date / Time alendronate sodium Allergy Unknown Verified 12/22/22 08:54 [From Fosamax] amoxicillin Allergy Unknown Verified 12/22/22 08:54 oxycodone Allergy Unknown Verified 12/22/22 08:54 risedronate sodium Allergy Unknown Verified 12/22/22 08:54 Sulfa (Sulfonamide Allergy Rash Verified 12/22/22 08:54 Antibiotics) tramadol Allergy Unknown Verified 12/22/22 08:54 - Social History Does the pt smoke?: No Smoking Status: Never smoker - Immunizations Immunizations are current?: Yes PD ED PE NORMAL - Vitals Vital signs reviewed: Yes - General General: Other (drowsy, minimal responsiveness. frail, cachectic) - HEENT HEENT: Other (dry lips and tongue) - Neck Neck: Supple, no meningeal sign - Cardiac Cardiac: RRR - Respiratory Respiratory: No respiratory distress, Other (diminished BS bilaterally.) - Abdomen Abdomen: Soft, Non tender, Non distended - Derm Derm: Warm and dry - Extremities Extremities: No edema - Neuro Eye Opening: None Motor: Withdraws to Pain Verbal: None GCS Score: 6 Results - Vitals Vitals: Vital Signs - 24 hr 12/22/22 12/22/22 12/22/22 08:54 09:10 09:30 Temperature 38.4 C H Heart Rate 99 96 94 Respiratory 30 H 30 H 30 H Rate Blood Pressure 61/45 L 68/46 L 69/54 L O2 Saturation 96 95 87 L If not protocol : Oxygen Flow, liters/minute 12/22/22 12/22/22 12/22/22 09:46 10:00 10:32 Temperature Heart Rate 96 89 98 Respiratory 30 H 28 H 30 H Rate Blood Pressure 71/50 L 85/65 L O2 Saturation 100 100 100 If not protocol 2 2 2 : Oxygen Flow, liters/minute Oxygen O2 Source Nasal cannula Oxygen Flow Rate 2 - Labs Labs: Laboratory Tests 12/22/22 12/22/22 12/22/22 09:11 09:11 09:11 WBC 30.3 H RBC 4.20 Hgb 11.3 L Hct 36.5 L MCV 86.9 MCH 26.9 L MCHC 31.0 L RDW 15.1 H Plt Count 131 MPV 11.7 H Neut # (Auto) Not Reportable Lymph # (Auto) Not Reportable [place] # (Auto) Not Reportable Eos # (Auto) Not Reportable Baso # (Auto) Not Reportable Absolute Nucleated RBC Not Reportable Total Counted 100 Band Neuts % (Manual) 9 Abnorm Lymph % (Manual) 0 Metamyelocytes % 2 H Nucleated RBC % Not Reportable Neutrophils # (Manual) 26.4 H Lymphocytes # (Manual) 2.4 Monocytes # (Manual) 0.9 Eosinophils # (Manual) 0.0 Basophils # (Manual) 0.0 Differential Comment MANUAL DIFFERENTIAL Platelet Estimate NORMAL (130-450,000) Platelet Morphology NORMAL APPEARANCE RBC Morph Micro Appear NORMAL APPEARANCE PT 17.6 H INR 1.6 H APTT 34.5 H Sodium 140 Potassium 4.0 Chloride 105 Carbon Dioxide 27 Anion Gap 8.0 BUN 44 H Creatinine 2.3 H Estimated GFR (MDRD) 20 L Glucose 86 Lactic Acid Calcium 8.4 L Total Bilirubin 0.8 AST 32 ALT < 10 L Alkaline Phosphatase 63 Total Protein 5.3 L Albumin 2.6 L Globulin 2.7 Albumin/Globulin Ratio 1.0 Lipase 19 L Urine Color Urine Clarity Urine pH Ur Specific [place] Urine Protein Urine Glucose (UA) Urine Ketones Urine Occult Blood Urine Nitrite Urine Bilirubin Urine Urobilinogen Ur Leukocyte Esterase Urine RBC Urine WBC Ur Squamous Epith Cells Urine Bacteria Ur Microscopic Review Urine Culture Comments Nasal Adenovirus (PCR) Nasal B. parapertussis DNA (PCR) Nasal Coronavir 229E PCR Nasal Coronavir HKU1 PCR Nasal Coronavir NL63 PCR Nasal Coronavir OC43 PCR Nasal Enterovir/Rhinovir PCR Nasal Influenza B PCR Nasal Influenza A PCR Nasal Parainfluen 1 PCR Nasal Parainfluen 2 PCR Nasal Parainfluen 3 PCR Nasal Parainfluen 4 PCR Nasal RSV (PCR) Nasal B.pertussis DNA PCR Nasal C.pneumoniae (PCR) Rashi Human Metapneumo PCR Nasal M.pneumoniae (PCR) Nasal SARS-CoV-2 (PCR) 12/22/22 12/22/22 12/22/22 09:11 09:20 09:40 WBC RBC Hgb Hct MCV MCH MCHC RDW Plt Count MPV Neut # (Auto) Lymph # (Auto) [place] # (Auto) Eos # (Auto) Baso # (Auto) Absolute Nucleated RBC Total Counted Band Neuts % (Manual) Abnorm Lymph % (Manual) Metamyelocytes % Nucleated RBC % Neutrophils # (Manual) Lymphocytes # (Manual) Monocytes # (Manual) Eosinophils # (Manual) Basophils # (Manual) Differential Comment Platelet Estimate Platelet Morphology RBC Morph Micro Appear PT INR APTT Sodium Potassium Chloride Carbon Dioxide Anion Gap BUN Creatinine Estimated GFR (MDRD) Glucose Lactic Acid 2.3 H Calcium Total Bilirubin AST ALT Alkaline Phosphatase Total Protein Albumin Globulin Albumin/Globulin Ratio Lipase Urine Color DARK YELLOW Urine Clarity CLOUDY Urine pH 7.0 Ur Specific [place] 1.025 Urine Protein >=300 H Urine Glucose (UA) NEGATIVE Urine Ketones TRACE Urine Occult Blood MODERATE H Urine Nitrite NEGATIVE Urine Bilirubin NEGATIVE Urine Urobilinogen 0.2 (NORMAL) Ur Leukocyte Esterase LARGE H Urine RBC TNTC H Urine WBC >25 H Ur Squamous Epith Cells MOD Squamous H Urine Bacteria Many H Ur Microscopic Review INDICATED Urine Culture Comments NOT INDICATED Nasal Adenovirus (PCR) NOT DETECTED Nasal B. parapertussis DNA (PCR) NOT DETECTED Nasal Coronavir 229E PCR NOT DETECTED Nasal Coronavir HKU1 PCR NOT DETECTED Nasal Coronavir NL63 PCR NOT DETECTED Nasal Coronavir OC43 PCR NOT DETECTED Nasal Enterovir/Rhinovir PCR NOT DETECTED Nasal Influenza B PCR NOT DETECTED Nasal Influenza A PCR NOT DETECTED Nasal Parainfluen 1 PCR NOT DETECTED Nasal Parainfluen 2 PCR NOT DETECTED Nasal Parainfluen 3 PCR NOT DETECTED Nasal Parainfluen 4 PCR NOT DETECTED Nasal RSV (PCR) NOT DETECTED Nasal B.pertussis DNA PCR NOT DETECTED Nasal C.pneumoniae (PCR) NOT DETECTED Rashi Human Metapneumo PCR NOT DETECTED Nasal M.pneumoniae (PCR) NOT DETECTED Nasal SARS-CoV-2 (PCR) DETECTED A - Rads (name of study) cxr Relevant Findings:: Final report received, See rad report PD Medical Decision Making - ED course Complexity details: reviewed results, re-evaluated patient, considered differential, d/w patient ED course: 87-year-old female with COVID, pneumonia, UTI. Started on Rocephin and azithromycin. Severely hypotensive upon arrival, responded somewhat to IV fluids. She is DNR with limited interventions. She was hypoxic as well and started on 2 L of oxygen. Her CBC shows a white blood cell count of over 30,000. 26,000 neutrophils. Her coagulation studies show an elevated INR at 1.6. History reveals acute renal insufficiency, creatinine 2.3, her baseline is 0.4. Lactic acid is 2.3. Urinalysis is consistent with a UTI, many bacteria and white cells. Positive for COVID on respiratory PCR. Patient has sepsis with multisystem organ failure. We will admit the patient for further care. Discussed the case with Dr. Adam, hospitalist who accepts This document was made in part using voice recognition software. While efforts are made to proofread this document, sound alike and grammatical errors may occur. - Sepsis Event Sepsis Onset Date: 12/22/22 Sepsis Onset Time: 10:00 Current Stage of Sepsis: Sepsis Initial Hypotension: MAP less than 65 mmHg Persistent Hypotension: MAP less than 65 mmHg, SBP less than 90 mmHg Possible source of Sepsis: Pulmonary, Genitourinary Mental/Cognitive Status: Other (dementia, parkinson's) Reason for not giving 30ml/kg crystalloid fluids: Bolus previously given, Fluid overload potential Capillary refill: Greater than 2 seconds Peripheral Pulse Strength: 1+ Faint Peripheral Pulse Location: Radial Bedside ultrasound performed: No Departure - Departure Disposition: 66 [facility] DC/Xfer Clinical Impression: COVID, Hypoxia Pneumonia Qualifiers: Pneumonia type: due to unspecified organism Laterality: bilateral Lung location: unspecified part of lung Qualified Code(s): J18.9 - Pneumonia, unspecified organism UTI (urinary tract infection) Qualifiers: Urinary tract infection type: site unspecified Hematuria presence: without hematuria Qualified Code(s): N39.0 - Urinary tract infection, site not specified Sepsis Qualifiers: Sepsis type: sepsis due to unspecified organism Sepsis acute organ dysfunction status: with acute organ dysfunction Severe sepsis acute organ dysfunction type: acute renal failure Acute renal failure type: unspecified Severe sepsis shock status: with septic shock Qualified Code(s): A41.9 - Sepsis, unspecified organism; R65.21 - Severe sepsis with septic shock; N17.9 - Acute kidney failure, unspecified Hypotension Qualifiers: Hypotension type: unspecified hypotension type Qualified Code(s): I95.9 - Hypotension, unspecified Condition: Poor
--- NOTE | 2022-12-22 09:20 | XRAY Report ---
PROCEDURE: Chest 1 View X-Ray INDICATIONS: hypoxia TECHNIQUE: One view of the chest was acquired. COMPARISON: 10/09/2022 FINDINGS: Surgical changes and devices: None. Lungs and pleura: No pleural effusions or pneumothorax. Mild diffuse reticulonodular pulmonary opaci ty. Mediastinum: Mediastinal contours appear normal. Heart size is normal. Bones and chest wall: No suspicious bony lesions. Overlying soft tissues appear unremarkable. IMPRESSION: Mild edema versus atypical pneumonia. Reviewed by: Deidre Li MD on 12/22/2022 9:18 AM PDT Approved by: Deidre Li MD on 12/22/2022 9:18 AM PDT Station ID: [id number]
[2022-12-22 09:29] LABS: BASOPHILS % (AUTO) 0.6 %; HCT - HEMATOCRIT 36.5 % (37.0-47.0); HGB - HEMOGLOBIN 11.3 g/dL (12.0-16.0); MEAN CORPUSCULAR HEMOGLOBIN 26.9 pg (27.0-31.0); MEAN CORPUSCULAR VOLUME 86.9 fL (81.0-99.0); MEAN PLATELET VOLUME 11.7 fL (7.9-10.8); MONOCYTES % (AUTO) 3.8 %; NEUTROPHILS % (AUTO) 85.3 %; PLT - PLATELET COUNT 131 10^3/uL (130-450); RED CELL DISTRIBUTION WIDTH 15.1 % (12.0-15.0); WHITE BLOOD COUNT 30.3 x10^3/uL (4.8-10.8)
[2022-12-22 09:34] LABS: ABNORMAL LYMPHS % (MANUAL) 0 %
[2022-12-22] MEDS ORDERED: cefTRIAXone 1 GM VIAL IVP STA (09:37)
[2022-12-22] MEDS ORDERED: AZITHROMYCIN INJ 500 MG in SODIUM CHLORIDE 0.9% 250 ML IV STA (09:37)
[2022-12-22 09:38] LABS: ALBUMIN 2.6 g/dL (3.2-5.5); ALKALINE PHOSPHATASE 63 IU/L (42-121); ALT ALANINE AMINOTRANSFERASE < 10 IU/L (10-60); AST ASPARTATE AMINOTRANSFERASE 32 IU/L (10-42); BILIRUBIN,TOTAL 0.8 mg/dL (0.2-1.0); BUN - BLOOD UREA NITROGEN 44 mg/dL (6-20); CALCIUM 8.4 mg/dL (8.5-10.3); CARBON DIOXIDE - CO2 27 mmol/L (21-32); CHLORIDE 105 mmol/L (101-111); CREATININE 2.3 mg/dL (0.4-1.0); GFR - MDRD 20 (>89); GLUCOSE 86 mg/dL (70-100); LIPASE 19 U/L (22-51); SODIUM 140 mmol/L (135-145); TOTAL PROTEIN 5.3 g/dL (6.7-8.2)
[2022-12-22 09:39] LABS: LACTIC ACID, VENOUS 2.3 mmol/L (0.5-2.2)
[2022-12-22 09:44] LABS: BAND NEUTROPHILS % (MANUAL) 9 %; DIFFERENTIAL COMMENT MANUAL DIFFERENTIAL; INR 1.6 (0.8-1.2); LYMPHOCYTES # (MANUAL) 2.4 10^3/uL (1.5-3.5); LYMPHOCYTES % (MANUAL) 8 %; METAMYELOCYTES % (MANUAL) 2 %; MONOCYTES # (MANUAL) 0.9 10^3/uL (0.0-1.0); NEUTROPHILS # (MANUAL) 26.4 10^3/uL (1.5-6.6); PLATELET ESTIMATE, MANUAL NORMAL (130-450,000) (NORMAL); PLATELET MORPHOLOGY NORMAL APPEARANCE (NORMAL); PT - PROTHROMBIN TIME 17.6 secs (9.9-12.6); RBC MORPHOLOGY (MULTIPLE) NORMAL APPEARANCE (NORMAL)
[2022-12-22 09:48] LABS: BILIRUBIN,URINE NEGATIVE (NEGATIVE); GLUCOSE, URINE (UA) NEGATIVE (NEGATIVE); KETONES,URINE (UA) TRACE mg/dL (NEGATIVE); LEUKOCYTE ESTERASE, URINE LARGE (NEGATIVE); NITRITE,URINE NEGATIVE (NEGATIVE); OCCULT BLOOD,URINE MODERATE (NEGATIVE); PROTEIN,URINE >=300 mg/dL (NEGATIVE); UROBILINOGEN,URINE 0.2 (NORMAL) E.U./dL (NORMAL)
[2022-12-22 09:50] LABS: CLARITY,URINE CLOUDY (CLEAR)
[2022-12-22 09:51] LABS: PARTIAL THROMBOPLASTIN TIME 34.5 secs (24.9-33.3)
[2022-12-22 09:56] LABS: BACTERIA,URINE Many /HPF (None Seen); RBC,URINE TNTC /HPF (0-5); SQUAMOUS EPITHELIAL CELL,UR MOD Squamous (<= Few); WBC,URINE >25 /HPF (0-5)
[2022-12-22 10:25] LABS: B. PARAPERTUSSIS- RESP PCR PAN NOT DETECTED; B. PERTUSSIS- RESP PCR PANEL NOT DETECTED; C. PNEUMONIAE- RESP PCR PANEL NOT DETECTED; CORONAVIRUS 229E-RESP PCR NOT DETECTED; CORONAVIRUS HKU1-RESP PCR NOT DETECTED; CORONAVIRUS NL63-RESP PCR NOT DETECTED; CORONAVIRUS OC43-RESP PCR NOT DETECTED; HUMAN METAPNEUMOVIRUS NOT DETECTED; INFLUENZA A- RESP PCR PANEL NOT DETECTED; INFLUENZA B - RESP PCR PANEL NOT DETECTED; M. PNEUMONIAE- RESP PCR PANEL NOT DETECTED; PARAINFLUENZA VIRUS 1 NOT DETECTED; PARAINFLUENZA VIRUS 2 NOT DETECTED; PARAINFLUENZA VIRUS 3 NOT DETECTED; PARAINFLUENZA VIRUS 4 NOT DETECTED; RHINOVIRUS/ENTEROVIRUS NOT DETECTED; RSV- RESP PCR PANEL NOT DETECTED
[2022-12-22 10:27] LABS: SARS-CoV-2 -RESP PCR PANEL DETECTED
[2022-12-22] MEDS ORDERED: SODIUM CHLORIDE FLUSH 0.9% 10 ML SYRINGE IVP PRN (11:33)
[2022-12-22] MEDS ORDERED: ACETAMINOPHEN 1,000 MG/100 ML 1,000 MG/100 ML BAG IV PRN (11:36)
[2022-12-22] MEDS: ZINC OXIDE 20% OINT 30 GM TUBE TOP PRN (12:55)
[2022-12-22] MEDS: DEXTROSE 5%-0.9% NACL 1,000 ML IV SCH ×2 (12:56→22:41)
--- NOTE | 2022-12-22 13:08 | HISTORY & PHYSICAL EXAMINATION ---
Chief Complaint - Chief Complaint Chief Complaint: Obtunded and hypotensive at [place] [facility]. History of Present Illness - Admitted From Admitted From:: ED - History Obtained From History obtained from: ED provider and chart review - History of Present Illness HPI Comment/Other: This is an 87-year-old white female with a history of Parkinson's disease with dementia, she was admitted here 2 months ago for sepsis from a UTI. Her daughter was often at the bedside and did remark that she has hallucinations which are her baseline. Today the staff at her facility noticed that she was more obtunded and had a low blood pressure and EMS was called. Upon arrival to the ED she had systolic blood pressure of 69. Work-up showed that she is COVID-positive, chest x-ray has p atchy infiltrates, she has elevated WBC of 30, elevated Lactic acid level of 2.3, elevated BUN/creat 44/2.3 (her baseline creat is 0.4). She was started on IV fluids, has gotten 2 L. Her blood pressure has improved to 85 systolic. Patient was desaturating at 87% on room air at presentation and she was put on O2 2L via nasal cannula, saturations improved to100%. The ED provider reached out to the daughter who herself has COVID, and the daughter said that the mother tested positive for COVID 1 week ago, unknown how long symptoms have lasted however. The ED provider discussed with the daughter that the patient is in septic shock, and has a poor prognosis because of her underlying dementia, cu rrent new COVID with desaturation, and new KRISTIE. She has a POLST in place that indicates DNR and limited interventions. The daughter asked that everything be tried to treat her short of aggressive measures. The ED provider reached out to me on the Hospitalist team and we discussed the patient. She is being admitted to manage septic shock, UTI, HCAP, obtundation. She is in critical condition. CODE BLUE status is DNR/DNI. History - Past Medical History Cardiovascular: reports: Hypertension, High cholesterol Respiratory: reports: None Neuro: reports: Dementia, TIA, Parkinson's Endocrine/Autoimmune: reports: None Psych: reports: None Musculoskeletal: reports: Osteoarthritis, Osteoporosis, Fatigue MRSA Hx?: No - Past Surgical History /CIVIL ATTORNEY: reports: Hysterectomy Meds/Allgy - Home Medications Home Medications: Ambulatory Orders Medication Instructions Recorded Confirmed Carbidopa/Levodopa [Carbidopa-Levo 1 tab PO BID 01/26/17 12/22/22 ER 25-100 Tab] Ipratropium [place] 2 sprays RASHI BID 01/26/17 12/22/22 Mirtazapine 7.5 mg PO QPM 01/26/17 12/22/22 Pramipexole [Mirapex] 0.25 mg PO QPM 01/26/17 12/22/22 Acetaminophen [Tylenol] 650 mg PO Q4H PRN 10/09/22 12/22/22 Aspirin [Aspirin EC] 81 mg PO DAILY 10/09/22 12/22/22 Carbidopa/Levodopa 25/100 [Sinemet 1 tab PO 5XD 10/09/22 12/22/22 25 mg/100 mg] D-Mannose [Azo D-Mannose] 500 mg PO DAILY 10/09/22 12/22/22 Estrogens, Conjugated Cream 0.5 g VG MOFR 10/09/22 12/22/22 [Premarin Cream] Lidocaine Patch 5% [Lidoderm Patch] 1 patch TOP DAILY PRN 10/09/22 12/22/22 Metoprolol Succinate [Toprol Xl] 12.5 mg PO QPM 10/09/22 12/22/22 Sennosides [Senna] 17.2 mg PO DAILY 10/09/22 12/22/22 polyethylene glycoL 3350 [Miralax] 17 g PO DAILY 10/09/22 12/22/22 Cholecalciferol (Vitamin D3) 1,250 mcg PO Q30D 12/22/22 12/22/22 [Decara] - Allergies Allergies/Adverse Reactions: Allergies Allergy/AdvReac Type Severity Reaction Status Date / Time alendronate sodium Allergy Unknown Verified 12/22/22 08:54 [From Fosamax] amoxicillin Allergy Unknown Verified 12/22/22 08:54 oxycodone Allergy Unknown Verified 12/22/22 08:54 risedronate sodium Allergy Unknown Verified 12/22/22 08:54 Sulfa (Sulfonamide Allergy Rash Verified 12/22/22 08:54 Antibiotics) tramadol Allergy Unknown Verified 12/22/22 08:54 Review of Systems - All Other Systems All Other Systems: reports: Other (Unable to obtain since she is obtunded) Exam - Vital Signs Vital Signs: Vital Signs x48h Temp Pulse Resp BP Pulse Ox O2 Flow Rate 12/22/22 12:00 94 23 72/48 L 100 2 12/22/22 11:42 96 22 77/59 L 96 2 12/22/22 10:32 98 30 H 85/65 L 100 2 12/22/22 10:00 89 28 H 71/50 L 100 2 12/22/22 09:46 96 30 H 100 2 12/22/22 09:30 94 30 H 69/54 L 87 L 12/22/22 09:10 96 30 H 68/46 L 95 12/22/22 08:54 38.4 C H 99 30 H 61/45 L 96 - Physical Exam General Appearance: positive: Other (Obtunded white female, appears in no distress. She is cachectic.) Eyes Bilateral: positive: No lid inflammation ENT: positive: Dry mucous membranes Neck: positive: Nml inspection Respiratory: positive: No respiratory distress (While on O2 via nasal cannula) Cardiovascular: positive: Regular rate & rhythm Abdomen: positive: No distention Extremities: positive: No pedal edema Sepsis Event Note (H) - Evaluation Current Stage of Sepsis: Septic shock Possible source of Sepsis: positive: Pulmonary, Genitourinary - Sepsis Criteria Sepsis Criteria: Respiratory: Increasing oxygen requirements, WEATHER FORECASTER: altered consciousness (unrelated to primary neuro pathology), MAP less than 65 mmHg, SBP less than 90 mmHg, Metabolic: lactate > 2 mmol/L Conclusion/Plan - Problem List (1) Septic shock Conclusion/Plan: The patient presented with a blood pressure of 69 systolic, tachycardic, very high white count of 30, elevated lactic acid and the source appears to be either COVID or healthcare associated pneumonia or UTI Plan: Continue with IV hydration Because the patient's POLST indicated she wants comfort directed care, we will not plan to use pressors or put her in the ICU We will start empiric IV antibiotics Await culture results The patient is considered to be in critical condition given her shock (2) KRISTIE (acute kidney injury) Conclusion/Plan: This patient's baseline creatinine is 0.4 (records and labs were reviewed). Presented now with BUN/creatinine of 44/2.3, consistent with marked volume depletion with this septic shock Plan: We will give IV fluids Avoid nephrotoxins Follow BMP daily. (3) Obtundation Conclusion/Plan: Patient is underlying dementia and Parkinson's. She presented in obtunded condition 2 months ago also when she had sepsis Plan: We will continue to give IV hydration and IV antibiotics and assess her neurologic status with those treatments (4) COVID Conclusion/Plan: According to the ED providers discussion with the daughter by phone, this patient tested positive for COVID 1 week ago. The patient has some hypoxia, patchy infiltrates on chest x-ray Plan: We will start IV Decadron. The patient is not a candidate to start remdesivir given her onset being a week ago or more (5) Hypoxia Conclusion/Plan: This is likely from her pneumonia Plan: We will provide supplemental oxygen, saturation target will be 90% or above (6) UTI (urinary tract infection) Conclusion/Plan: Patient gets frequent UTIs. The UA now showed a lot of squamous cells therefore no culture was indicated. Patient has already been started on empiric ceftriaxone which would treat a UTI as well and is treating this pneumonia Plan: We will not repeat a UA Continue empiric iv ceftriaxone Qualifiers: Urinary tract infection type: site unspecified Hematuria presence: without hematuria Qualified Code(s): N39.0 - Urinary tract infection, site not specified (7) Parkinson's disease dementia Conclusion/Plan: As per history. I took care of this patient 2 months ago and remember her baseline mental status. The daughter had told this that even at her best, the patient has hallucinations. Plan: If the patient awakens to start taking a diet and oral meds, her usual meds will be resumed - Lab Results Fish Bones: 12/22/22 09:11 12/22/22 09:11 - Diagnostic Imaging Results Diagnostic Imaging Results: positive: Final report reviewed - Other Other Results/Comments: Attestation: The patient is expected to be discharged or transferred to another facility within 96 hours: Yes
[2022-12-22 13:18] LABS: LACTIC ACID, VENOUS 2.3 mmol/L (0.5-2.2)
--- NOTE | 2022-12-22 14:48 | PHARMACY PROGRESS NOTE ---
- Best Possible Medication History Admit Date and Time: 12/22/22 1133 Processed by: Pharmacy Medication History completed: Yes Secondary Source(s): Facility MAR as ONLY source As the person ultimately responsible for medication therapy, providers are able to order a medication from an existing home medication list in [facility] via the "Reconcile Routine" prior to Confirmation of that medication by ground support equipment fitter. Such practice is discouraged except when the physician, in their clinical judgment, deems that a medical need exists for a medication without regard to previous use.
[2022-12-22] MEDS: SODIUM CHLORIDE FLUSH 0.9% 10 ML SYRINGE IVP SCH (16:50)
[2022-12-22 16:53] LABS: LACTIC ACID, VENOUS 2.4 mmol/L (0.5-2.2)
[2022-12-23] MEDS: SODIUM CHLORIDE FLUSH 0.9% 10 ML SYRINGE IVP SCH ×3 (00:20→16:23)
[2022-12-23 05:54] LABS: BASOPHILS % (AUTO) 0.4 %; EOSINOPHILS % (AUTO) 0.2 %; HCT - HEMATOCRIT 35.1 % (37.0-47.0); HGB - HEMOGLOBIN 10.6 g/dL (12.0-16.0); LYMPHOCYTES % (AUTO) 3.8 %; MEAN CORPUSCULAR HEMOGLOBIN 26.4 pg (27.0-31.0); MEAN CORPUSCULAR HGB CONC 30.2 g/dL (32.0-36.0); MEAN CORPUSCULAR VOLUME 87.3 fL (81.0-99.0); MEAN PLATELET VOLUME 11.8 fL (7.9-10.8); MONOCYTES % (AUTO) 2.2 %; NEUTROPHILS % (AUTO) 83.9 %; PLT - PLATELET COUNT 103 10^3/uL (130-450); RED BLOOD COUNT 4.02 10^6/uL (4.20-5.40); RED CELL DISTRIBUTION WIDTH 15.4 % (12.0-15.0); WHITE BLOOD COUNT 19.9 x10^3/uL (4.8-10.8)
[2022-12-23 05:56] LABS: ABNORMAL LYMPHS % (MANUAL) 0 %
[2022-12-23 06:04] LABS: CALCIUM 8.1 mg/dL (8.5-10.3); CREATININE 1.2 mg/dL (0.4-1.0)
[2022-12-23 06:10] LABS: BAND NEUTROPHILS % (MANUAL) 3 %; LYMPHOCYTES # (MANUAL) 1.2 10^3/uL (1.5-3.5); LYMPHOCYTES % (MANUAL) 6 %; METAMYELOCYTES % (MANUAL) 2 %; MONOCYTES # (MANUAL) 0.8 10^3/uL (0.0-1.0); NEUTROPHILS # (MANUAL) 17.5 10^3/uL (1.5-6.6); RBC MORPHOLOGY (MULTIPLE) NORMAL APPEARANCE (NORMAL)
[2022-12-23 06:12] LABS: DIFFERENTIAL COMMENT MANUAL DIFFERENTIAL; PLATELET ESTIMATE, MANUAL DECREASED (<130,000) (NORMAL); PLATELET MORPHOLOGY NORMAL APPEARANCE (NORMAL); WBC MORPHOLOGY (MULTIPLE) NORMAL APPEARANCE (NORMAL)
[2022-12-23] MEDS: ENOXAPARIN 30 MG/0.3 ML SYRINGE SUBQ SCH (08:31)
[2022-12-23] MEDS: DEXTROSE 5%-0.9% NACL 1,000 ML IV SCH ×2 (08:31→17:38)
[2022-12-23] MEDS: ZINC OXIDE 20% OINT 30 GM TUBE TOP PRN (08:37)
[2022-12-23] MEDS: POTASSIUM CHLOR 10 MEQ/100 ML 10 MEQ/100 ML BAG IV SCH ×4 (10:22→14:48)
[2022-12-23] MEDS: cefTRIAXone 2 GM in SODIUM CHLORIDE 0.9% MINIBAG 100 ML IV SCH (12:42)
[2022-12-23] MEDS: AZITHROMYCIN INJ 500 MG in SODIUM CHLORIDE 0.9% 250 ML IV SCH (13:18)
--- NOTE | 2022-12-23 17:46 | PROVIDER PROGRESS NOTE ---
Assessment/Plan - Problem List (1) Septic shock Assessment/Plan: The patient presented with a blood pressure of 69 systolic, tachycardic, very high white count of 30, elevated lactic acid and the source appears to be either COVID or healthcare associated pneumonia or UTI Plan: Continue with IV hydration The patient is considered to be in critical condition given her shock. Because the patient's POLST indicated she wants comfort directed care, we will not plan to use pressors or put her in the ICU, this was discussed with the daughter today by phone. Cont empiric IV antibiotics Await culture results (2) KRISTIE (acute kidney injury) Conclusion/Plan: This patient's baseline creatinine is 0.4 (records and labs were reviewed). Presented now with BUN/creatinine of 44/2.3, consistent with marked volume depletion with this septic shock Plan: Cont to give IV fluids Avoid nephrotoxins Follow BMP daily. (3) Obtundation Conclusion/Plan: Patient is underlying dementia and Parkinson's. She presented in obtunded condition 2 months ago also when she had sepsis. The daughter asked the ED provider to do everything and she has responded to iv fluids and iv antibx. Her RN witnessed her to wake up briefly, enough to swallow. By my exam, she is still obtunded. Plan: We will continue to give IV hydration and IV antibiotics and assess her neurologic status with those treatments Will order a diet (4) COVID Conclusion/Plan: According to the ED providers discussion with the daughter by phone, this patient tested positive for COVID just over 1 week before presenting. The patient has hypoxia, patchy infiltrates on chest x-ray Plan: We will continue IV Decadron. The patient was not a candidate to start Remdesivir given her onset being a week ago or more (5) Hypoxia Conclusion/Plan: This is likely from her pneumonia Plan: We will provide supplemental oxygen, saturation target will be 90% or above (6) UTI (urinary tract infection) Conclusion/Plan: Patient gets frequent UTIs. The U/A now showed a lot of squamous cells therefore no culture was indicated. Patient has already been started on empiric ceftriaxone which would treat a UTI as well as treating her pneumonia Plan: We will not repeat a UA Continue empiric iv ceftriaxone Qualifiers: Urinary tract infection type: site unspecified Hematuria presence: without hematuria Qualified Code(s): N39.0 - Urinary tract infection, site not specified (7) Parkinson's disease dementia Conclusion/Plan: As per history. I took care of this patient 2 months ago and remember her baseline mental status. The daughter had told us that, even at her best, the patient has hallucinations. Plan: If the patient awakens to start taking a diet and oral meds, her usual meds will be resumed (8) Cachexia R64 As per Hx and current clinical status Plan: If she awakens and survives this septic shock, will ask for Nutrition consult. - Current Meds Current Meds: Current Medications Generic Name Dose Route Start Last Admin Trade Name Freq PRN Reason Stop Dose Admin Enoxaparin Sodium 30 mg 12/23/22 09:00 12/23/22 08:31 Enoxaparin 30 Mg/0.3 Ml Syringe SUBQ 30 mg DAILY MAVIS Administration Dextrose/Sodium Chloride 1,000 mls @ 100 mls/hr 12/22/22 12:00 12/23/22 17:38 D5ns IV 100 mls/hr .Q10H MAVIS Administration Ceftriaxone Sodium 2 gm/ 100 mls @ 200 mls/hr 12/23/22 11:00 12/23/22 13:12 Sodium Chloride IV Infused DAILY MAVIS Infusion Azithromycin 500 mg/ Sodium 250 mls @ 250 mls/hr 12/23/22 11:00 12/23/22 14:18 Chloride IV 12/25/22 00:01 Infused DAILY MAVIS Infusion Multi-Ingredient Ointment 1 applic 12/22/22 12:43 12/23/22 08:37 Zinc Oxide 20% Oint 30 Gm Tube TOP 1 applic PRN PRN Administration Skin Care Sodium Chloride 10 ml 12/22/22 17:00 12/23/22 16:23 Sodium Chloride Flush 0.9% 10 Ml Syringe IVP 10 ml 0100,0900,1700 MAVIS Administration - Lab Result Fish Bone Diagrams: 12/25/22 08:00 12/25/22 08:00 - Additional Planning My Orders: My Active Orders 12/22/22 17:00 Sodium Chloride Flush 0.9% [Normal Saline Flush 0.9%] 10 ml IVP 0100,0900,1700 12/23/22 09:00 Enoxaparin [Lovenox] 30 mg SUBQ DAILY 12/23/22 11:00 Azithromycin Inj [Zithromax Inj] 500 mg Sodium Chloride 0.9% [Normal Saline 0.9%] 250 ml IV DAILY cefTRIAXone [Rocephin] 2 gm Sodium Chloride 0.9% Minibag [Normal Saline 0.9% Minibag] 100 ml IV DAILY 12/23/22 Dinner DIET [Dysphagia - Puree] [DIET] Subjective - Subjective Nursing Reports: Other (Rn reported that she awoke, could swallow, then fell asleep) Objective Vital Signs: Vital Signs - 24 hr 12/22/22 12/22/22 12/23/22 19:05 21:00 00:18 Temperature 36.1 C L 36.3 C L Heart Rate [ 90 94 Brachial] Respiratory 24 20 Rate Blood Pressure 94/59 L [Left Brachial artery] Blood Pressure [Right Brachial artery] Blood Pressure 94/57 L [right arm] O2 Saturation 97 96 If not protocol 1.5 1.5 1 : Oxygen Flow, liters/minute 12/23/22 12/23/22 12/23/22 05:48 07:00 08:09 Temperature 36.4 C L 36.3 C L Heart Rate [ 59 L 76 Brachial] Respiratory 24 22 Rate Blood Pressure [Left Brachial artery] Blood Pressure [Right Brachial artery] Blood Pressure 102/67 104/64 [right arm] O2 Saturation 99 100 If not protocol 1 1 : Oxygen Flow, liters/minute 12/23/22 12/23/22 11:52 16:41 Temperature 36.1 C L 36.5 C Heart Rate [ 91 83 Brachial] Respiratory 22 20 Rate Blood Pressure [Left Brachial artery] Blood Pressure 121/87 H [Right Brachial artery] Blood Pressure 121/75 [right arm] O2 Saturation 99 98 If not protocol : Oxygen Flow, liters/minute Oxygen O2 Source Room air Oxygen Flow Rate 2 I&O (Last 24 Hrs): Intake and Output Totals x24h 12/21/22 12/22/22 12/23/22 23:59 23:59 23:59 Intake Total 4087.5 2715.000 Output Total 75 550 Balance 4012.5 2165.000 General: Other (Obtunded, does wthdraw to pain) HEENT: Other (Cachectic, sunken eyes, dry oral mucosa) Neuro: Other (Obtunded, does respond to pain on my exam) Cardiovascular: No murmurs Respiratory: No respiratory distress (on suppl O2) Abdomen: Soft, Other (thin) Extremities: No clubbing, No edema, Other (Muscle wasting, skin tenting) - Results Results: Laboratory Results WBC 19.9 x10^3/uL (4.8-10.8) H 12/23/22 05:42 RBC 4.02 10^6/uL (4.20-5.40) L 12/23/22 05:42 Hgb 10.6 g/dL (12.0-16.0) L 12/23/22 05:42 Hct 35.1 % (37.0-47.0) L 12/23/22 05:42 MCV 87.3 fL (81.0-99.0) 12/23/22 05:42 MCH 26.4 pg (27.0-31.0) L 12/23/22 05:42 MCHC 30.2 g/dL (32.0-36.0) L 12/23/22 05:42 RDW 15.4 % (12.0-15.0) H 12/23/22 05:42 Plt Count 103 10^3/uL (130-450) L 12/23/22 05:42 MPV 11.8 fL (7.9-10.8) H 12/23/22 05:42 Neut # (Auto) Not Reportable 12/23/22 05:42 Lymph # (Auto) Not Reportable 12/23/22 05:42 [place] # (Auto) Not Reportable 12/23/22 05:42 Eos # (Auto) Not Reportable 12/23/22 05:42 Baso # (Auto) Not Reportable 12/23/22 05:42 Absolute Nucleated RBC Not Reportable 12/23/22 05:42 Total Counted 100 12/23/22 05:42 Band Neuts % (Manual) 3 % (0-10) 12/23/22 05:42 Abnorm Lymph % (Manual) 0 % 12/23/22 05:42 Metamyelocytes % 2 % (-0) H 12/23/22 05:42 Nucleated RBC % Not Reportable 12/23/22 05:42 Neutrophils # (Manual) 17.5 10^3/uL (1.5-6.6) H 12/23/22 05:42 Lymphocytes # (Manual) 1.2 10^3/uL (1.5-3.5) L 12/23/22 05:42 Monocytes # (Manual) 0.8 10^3/uL (0.0-1.0) 12/23/22 05:42 Eosinophils # (Manual) 0.0 10^3/uL (0-0.7) 12/23/22 05:42 Basophils # (Manual) 0.0 10^3/uL (0-0.1) 12/23/22 05:42 Differential Comment MANUAL DIFFERENTIAL 12/23/22 05:42 WBC Morphology NORMAL APPEARANCE (NORMAL) 12/23/22 05:42 Platelet Estimate DECREASED (<130,000) (NORMAL) 12/23/22 05:42 Platelet Morphology NORMAL APPEARANCE (NORMAL) 12/23/22 05:42 RBC Morph Micro Appear NORMAL APPEARANCE (NORMAL) 12/23/22 05:42 PT 17.6 secs (9.9-12.6) H 12/22/22 09:11 INR 1.6 (0.8-1.2) H 12/22/22 09:11 APTT 34.5 secs (24.9-33.3) H 12/22/22 09:11 Sodium 143 mmol/L (135-145) 12/23/22 05:42 Potassium 3.0 mmol/L (3.5-5.0) L 12/23/22 05:42 Chloride 114 mmol/L (101-111) H 12/23/22 05:42 Carbon Dioxide 24 mmol/L (21-32) 12/23/22 05:42 Anion Gap 5.0 (6-13) L 12/23/22 05:42 BUN 45 mg/dL (6-20) H 12/23/22 05:42 Creatinine 1.2 mg/dL (0.4-1.0) H 12/23/22 05:42 Estimated GFR (MDRD) 42 (>89) L 12/23/22 05:42 Glucose 121 mg/dL (70-100) H 12/23/22 05:42 Lactic Acid 1.5 mmol/L (0.5-2.2) 12/22/22 19:46 Calcium 8.1 mg/dL (8.5-10.3) L 12/23/22 05:42 Total Bilirubin 0.8 mg/dL (0.2-1.0) 12/22/22 09:11 AST 32 IU/L (10-42) 12/22/22 09:11 ALT < 10 IU/L (10-60) L 12/22/22 09:11 Alkaline Phosphatase 63 IU/L (42-121) 12/22/22 09:11 Total Protein 5.3 g/dL (6.7-8.2) L 12/22/22 09:11 Albumin 2.6 g/dL (3.2-5.5) L 12/22/22 09:11 Globulin 2.7 g/dL (2.1-4.2) 12/22/22 09:11 Albumin/Globulin Ratio 1.0 (1.0-2.2) 12/22/22 09:11 Lipase 19 U/L (22-51) L 12/22/22 09:11 Urine Color DARK YELLOW 12/22/22 09:40 Urine Clarity CLOUDY (CLEAR) 12/22/22 09:40 Urine pH 7.0 PH (5.0-7.5) 12/22/22 09:40 Ur Specific [place] 1.025 (1.002-1.030) 12/22/22 09:40 Urine Protein >=300 mg/dL (NEGATIVE) H 12/22/22 09:40 Urine Glucose (UA) NEGATIVE mg/dL (NEGATIVE) 12/22/22 09:40 Urine Ketones TRACE mg/dL (NEGATIVE) 12/22/22 09:40 Urine Occult Blood MODERATE (NEGATIVE) H 12/22/22 09:40 Urine Nitrite NEGATIVE (NEGATIVE) 12/22/22 09:40 Urine Bilirubin NEGATIVE (NEGATIVE) 12/22/22 09:40 Urine Urobilinogen 0.2 (NORMAL) E.U./dL (NORMAL) 12/22/22 09:40 Ur Leukocyte Esterase LARGE (NEGATIVE) H 12/22/22 09:40 Urine RBC TNTC /HPF (0-5) H 12/22/22 09:40 Urine WBC >25 /HPF (0-5) H 12/22/22 09:40 Ur Squamous Epith Cells MOD Squamous (<= Few) H 12/22/22 09:40 Urine Bacteria Many /HPF (None Seen) H 12/22/22 09:40 Ur Microscopic Review INDICATED 12/22/22 09:40 Urine Culture Comments NOT INDICATED 12/22/22 09:40 Nasal Adenovirus (PCR) NOT DETECTED 12/22/22 09:20 Nasal B. parapertussis DNA (PCR) NOT DETECTED 12/22/22 09:20 Nasal Coronavir 229E PCR NOT DETECTED 12/22/22 09:20 Nasal Coronavir HKU1 PCR NOT DETECTED 12/22/22 09:20 Nasal Coronavir NL63 PCR NOT DETECTED 12/22/22 09:20 Nasal Coronavir OC43 PCR NOT DETECTED 12/22/22 09:20 Nasal Enterovir/Rhinovir PCR NOT DETECTED 12/22/22 09:20 Nasal Influenza B PCR NOT DETECTED 12/22/22 09:20 Nasal Influenza A PCR NOT DETECTED 12/22/22 09:20 Nasal Parainfluen 1 PCR NOT DETECTED 12/22/22 09:20 Nasal Parainfluen 2 PCR NOT DETECTED 12/22/22 09:20 Nasal Parainfluen 3 PCR NOT DETECTED 12/22/22 09:20 Nasal Parainfluen 4 PCR NOT DETECTED 12/22/22 09:20 Nasal RSV (PCR) NOT DETECTED 12/22/22 09:20 Nasal B.pertussis DNA PCR NOT DETECTED 12/22/22 09:20 Nasal C.pneumoniae (PCR) NOT DETECTED 12/22/22 09:20 Reza Human Metapneumo PCR NOT DETECTED 12/22/22 09:20 Nasal M.pneumoniae (PCR) NOT DETECTED 12/22/22 09:20 Nasal SARS-CoV-2 (PCR) DETECTED A 12/22/22 09:20 Sepsis Event Note (H) - Evaluation Current Stage of Sepsis: Septic shock Possible source of Sepsis: positive: Pulmonary, Genitourinary - Sepsis Criteria Sepsis Criteria: Respiratory: Increasing oxygen requirements, MANAGER READING: altered consciousness (unrelated to primary neuro pathology), MAP less than 65 mmHg, SBP less than 90 mmHg, Metabolic: lactate > 2 mmol/L
[2022-12-24] MEDS: SODIUM CHLORIDE FLUSH 0.9% 10 ML SYRINGE IVP SCH ×3 (04:19→17:23)
[2022-12-24] MEDS: DEXTROSE 5%-0.9% NACL 1,000 ML IV SCH ×2 (04:19→19:10)
[2022-12-24] MEDS ORDERED: POTASSIUM CHLORIDE INJ 40 MEQ in SODIUM CHLORIDE 0.9% 500 ML IV ONE (09:00)
[2022-12-24] MEDS: AZITHROMYCIN INJ 500 MG in SODIUM CHLORIDE 0.9% 250 ML IV SCH (09:02)
[2022-12-24] MEDS: ENOXAPARIN 30 MG/0.3 ML SYRINGE SUBQ SCH (09:03)
[2022-12-24] MEDS: cefTRIAXone 2 GM in SODIUM CHLORIDE 0.9% MINIBAG 100 ML IV SCH (09:03)
[2022-12-24 09:44] LABS: CALCIUM 8.2 mg/dL (8.5-10.3); CREATININE 0.5 mg/dL (0.4-1.0); POTASSIUM 3.3 mmol/L (3.5-5.0)
[2022-12-24] MEDS: MULTIVITAMIN W/MINERALS TABLET PO SCH (17:20)
--- NOTE | 2022-12-24 17:24 | PROVIDER PROGRESS NOTE ---
Subjective - Prog Note Date Prog Note Date: 12/24/22 Prog Note Time: 17:22 - Subjective Subjective: She is more awake today. Nursing has been able to coax her into eating some of her food. But she still very sleepy, falls asleep very easily. She is sitting up in bed about 45 degrees, asleep but her eyes are half open with coarse, heavy breathing. Current Medications - Current Medications Current Medications: Active Medications Enoxaparin Sodium (Enoxaparin 30 Mg/0.3 Ml Syringe) 30 mg SUBQ DAILY [facility] Last Admin: 12/24/22 09:03 Dose: 30 mg Dextrose/Sodium Chloride (D5ns) 1,000 mls @ 100 mls/hr IV .Q10H [facility] Last Infusion: 12/24/22 15:11 Dose: 100 mls/hr Acetaminophen (Acetaminophen) 1,000 mg in 100 mls @ 400 mls/hr IV Q6HR PRN PRN Reason: Pain or Fever > 38C (100.4F) Ceftriaxone Sodium 2 gm/ (Sodium Chloride) 100 mls @ 200 mls/hr IV DAILY [facility] Last Infusion: 12/24/22 09:35 Dose: Infused Azithromycin 500 mg/ Sodium (Chloride) 250 mls @ 250 mls/hr IV DAILY [facility]IS Stop: 12/25/22 00:01 Last Infusion: 12/24/22 10:05 Dose: Infused Lidocaine (Lidocaine Patch 5%) 1 patch TOP DAILY PRN PRN Reason: PAIN Multi-Ingredient Ointment (Zinc Oxide 20% Oint 30 Gm Tube) 1 applic TOP PRN PRN PRN Reason: Skin Care Last Admin: 12/23/22 08:37 Dose: 1 applic Multivitamins/Minerals (Multivitamin W/Minerals Tablet) 1 tab PO DAILYWM [facility] Last Admin: 12/24/22 17:20 Dose: 1 tab Sodium Chloride (Sodium Chloride Flush 0.9% 10 Ml Syringe) 10 ml IVP PRN PRN PRN Reason: NEEDED PER PROVIDER ORDERS Sodium Chloride (Sodium Chloride Flush 0.9% 10 Ml Syringe) 10 ml IVP 0100,0900,1700 [facility] Last Admin: 12/24/22 17:23 Dose: Not Given Carbidopa/Levodopa [Carbidopa-Levo ER 25-100 Tab] 1 tab PO BID 01/26/17 Ipratropium [place] 2 sprays RASHI BID 01/26/17 Mirtazapine 7.5 mg PO QPM 01/26/17 Pramipexole [Mirapex] 0.25 mg PO QPM 01/26/17 Acetaminophen [Tylenol] 650 mg PO Q4H PRN 10/09/22 Aspirin [Aspirin EC] 81 mg PO DAILY 10/09/22 Carbidopa/Levodopa 25/100 [Sinemet 25 mg/100 mg] 1 tab PO 5XD 10/09/22 D-Mannose [Azo D-Mannose] 500 mg PO DAILY 10/09/22 Estrogens, Conjugated Cream [Premarin Cream] 0.5 g VG MOFR 10/09/22 Lidocaine Patch 5% [Lidoderm Patch] 1 patch TOP DAILY PRN 10/09/22 Metoprolol Succinate [Toprol Xl] 12.5 mg PO QPM 10/09/22 Sennosides [Senna] 17.2 mg PO DAILY 10/09/22 polyethylene glycoL 3350 [Miralax] 17 g PO DAILY 10/09/22 Cholecalciferol (Vitamin D3) [Vitamin D3] 1,250 mcg PO Q30D 12/22/22 Objective - Vital Signs/Intake & Output Reviewed Vital Signs: Yes Vital Signs: Vital Signs x48h Temp Pulse Resp BP Pulse Ox 12/24/22 15:48 36.5 C 84 24 140/90 H 97 12/24/22 13:00 36.3 C L 90 22 122/82 H 99 Intake & Output: Intake & Output 12/21/22 12/22/22 12/23/22 12/24/22 23:59 23:59 23:59 23:59 Intake Total 4087.5 2875.000 2691.667 Output Total 75 800 775 Balance 4012.5 2075.000 1916.667 - Objective General Appearance: positive: Lethargic, Other (Cachectic elderly female, very frail looking. Cheeks are bright red as she sits up in bed with eyes half open, requiring quite a bit of voice commands and touching her shoulder to wake up) Eyes Bilateral: positive: PERRL ENT: positive: Dry mucous membranes Neck: positive: No JVD. negative: Stiff neck Respiratory: positive: Other (Coarse, sonorous upper airway sounds throughout all lung ravi. She appears slightly tachypneic.) Cardiovascular: positive: Regular rate & rhythm, Systolic murmur Abdomen: positive: Non-tender, No organomegaly, Nml bowel sounds, No distention Skin: positive: Diaphoresis, Pallor Extremities: positive: Full ROM, Pedal edema Neurologic/Psychiatric: positive: Other (Response to voice, withdraws to painful stimuli, does move all extremities to noxious stimuli but no purposeful movement.) - Lab Results Fish Bones: 12/23/22 05:42 12/24/22 09:26 Other Labs: Lab Results x24hrs 12/24/22 Range/Units 09:26 Sodium 145 (135-145) mmol/L Potassium 3.3 L (3.5-5.0) mmol/L Chloride 122 H* (101-111) mmol/L Carbon Dioxide 21 (21-32) mmol/L Anion Gap 2.0 L (6-13) BUN 30 H (6-20) mg/dL Creatinine 0.5 (0.4-1.0) mg/dL Estimated GFR (MDRD) 116 (>89) Glucose 136 H (70-100) mg/dL Calcium 8.2 L (8.5-10.3) mg/dL ABX Reporting Has patient been on IV antibiotics over the past 48 hours?: Yes Sepsis Event Note (H) - Evaluation Current Stage of Sepsis: Resolved Possible source of Sepsis: positive: Pulmonary, Genitourinary - Sepsis Criteria Sepsis Criteria: Respiratory: Increasing oxygen requirements, INSULATION HELPER: altered consciousness (unrelated to primary neuro pathology), MAP less than 65 mmHg, SBP less than 90 mmHg, Metabolic: lactate > 2 mmol/L Assessment/Plan - Problem List (1) Sepsis Impression: with shock. The patient presented with a blood pressure of 69 systolic, tachycardic, very high white count of 30, elevated lactic acid and the source appears to be either COVID or healthcare associated pneumonia or UTI. Since receiving antibiotics, she has defervesced. Her last temperature was on December 22 and she has been afebrile since then. There has been no tachycardia. And blood pressure has come up today to 140/90 and 140/85 after being in the 120s for the last couple of days. She is nonhypoxic and is 97 to 99% on room air. Preliminary blood cultures have gram-negative bacilli. PCR has identified it is Proteus. Sensitivities are pending. Antibiotics have been ordered to treat both pneumonia and UTI. As such she is on ceftriaxone day #3, and azithromycin day #3. While she has responded to treatment with normalization of her vital signs, and obtundation has improved to the point that she can at least respond to swallow food, this patient is still quite ill. Still breathing hard, and very cach ectic. Overall prognosis for her is poor. Plan: She has been on 100 cc an hour, and I will DC IV fluids Because the patient's POLST indicated she wants comfort directed care, we will not plan to use pressors or put her in the ICU Today completes the azithromycin part of pneumonia treatment. I will continue ceftriaxone. Await the sensitivities of the blood cultures to adjust antibiotics (2) KRISTIE (acute kidney injury) resolved. New hypokalemia Conclusion/Plan: This patient's baseline creatinine is 0.4 (records and labs were reviewed). Presented on admission with BUN/creatinine of 44/2.3, consistent with marked volume depletion with this septic shock Laboratory Tests 12/22/22 12/23/22 12/24/22 09:11 05:42 09:26 Creatinine 2.3 H 1.2 H 0.5 She has responded well to fluid resuscitation antibiotics. Her creatinine is now back to baseline. I can infer that she is improved from that regard, but this unfortunate female is still quite lethargic, and a poor prognosis Plan: stop IVF and encourage po intake. If she can't drink enough I will resume NS at 83 cc/hr tomorrow Avoid nephrotoxins Follow BMP daily. Potassium rider to supplement potassium and recheck tomorrow (3) Obtundation improved. more awake and able to eat some food. responds to voice and commands but slowly Conclusion/Plan: Patient is underlying dementia and Parkinson's. She presented in obtunded condition 2 months ago also when she had sepsis Plan: continue abx until at baseline. (4) COVID Conclusion/Plan: According to the ED providers discussion with the daughter by phone, this patient tested positive for COVID 1 week ago. The patient has some hypoxia, patchy infiltrates on chest x-ray Plan: IV Decadron Day #3, plan for 10 days The patient is not a candidate to start remdesivir given her onset being a week ago or more (5) Hypoxia resolved Conclusion/Plan: This is likely from her pneumonia. Even though she was saturating at 97 to 99%, she was still getting nasal cannula on her first day here. Starting on the we took off her oxygen and she has been 99 to 100% on room air. Plan: We will provide supplemental oxygen, saturation target will be 90% or above (6) UTI (urinary tract infection) Conclusion/Plan: Patient gets frequent UTIs. The UA now showed a lot of squamous cells therefore no culture was indicated. Patient has already been started on empiric ceftriaxone which would treat a UTI as well and is treating this pneumonia. Proteus is growing in her blood. Plan: No repeat UA Continue empiric iv ceftriaxone Qualifiers: Urinary tract infection type: site unspecified Hematuria presence: without hematuria Qualified Code(s): N39.0 - Urinary tract infection, site not specified (7) Parkinson's disease dementia Conclusion/Plan: The daughter had told this that even at her best, the patient has hallucinations. I will resume her meds since she is swallowing now. mirtazapine 7.5 p.o. every afternoon. She is on 2 forms of carbidopa levodopa. Extended release 25/100 twice daily. And carbidopa levodopa 25/100 at 6 in the morning, 10 AM, 1400, 1800, and 2200. (8)Severe protein calorie malnutrition In December 2016 she was 74 kg. February 2017 she was 69 kg. July 2021 she was 54 kg. September 2022 she was 45 kg. She is 44 kg on admission. 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 Lack of coordination with swallowing mechanism. This is very common with motor neuron disease. Focus is on comfort measures so she is not a candidate for tube feeds or PEG tube. Qualifiers: Qualified Code(s): A41.9 - Sepsis, unspecified organism; R65.21 - Severe sepsis with septic shock; N17.9 - Acute kidney failure, unspecified
[2022-12-24] MEDS ORDERED: LIDOCAINE PATCH 5% TOP PRN (17:28)
[2022-12-25] MEDS: SODIUM CHLORIDE FLUSH 0.9% 10 ML SYRINGE IVP SCH ×3 (00:45→16:54)
[2022-12-25] MEDS: DEXTROSE 5%-0.9% NACL 1,000 ML IV SCH ×2 (04:59→15:21)
[2022-12-25 08:08] LABS: BASOPHILS % (AUTO) 0.2 %; EOSINOPHILS # (AUTO) 0.1 10^3/uL (0.0-0.7); EOSINOPHILS % (AUTO) 0.7 %; HCT - HEMATOCRIT 36.7 % (37.0-47.0); HGB - HEMOGLOBIN 11.1 g/dL (12.0-16.0); LYMPHOCYTES # (AUTO) 0.9 10^3/uL (1.5-3.5); LYMPHOCYTES % (AUTO) 11.1 %; MEAN CORPUSCULAR HEMOGLOBIN 26.7 pg (27.0-31.0); MEAN CORPUSCULAR HGB CONC 30.2 g/dL (32.0-36.0); MEAN CORPUSCULAR VOLUME 88.2 fL (81.0-99.0); MEAN PLATELET VOLUME 11.4 fL (7.9-10.8); MONOCYTES # (AUTO) 0.3 10^3/uL (0.0-1.0); MONOCYTES % (AUTO) 3.5 %; NEUTROPHILS # (AUTO) 6.9 10^3/uL (1.5-6.6); NEUTROPHILS % (AUTO) 83.8 %; PLT - PLATELET COUNT 114 10^3/uL (130-450); RED BLOOD COUNT 4.16 10^6/uL (4.20-5.40); WHITE BLOOD COUNT 8.3 x10^3/uL (4.8-10.8)
[2022-12-25 08:19] LABS: CALCIUM 8.3 mg/dL (8.5-10.3); CREATININE 0.4 mg/dL (0.4-1.0); POTASSIUM 3.4 mmol/L (3.5-5.0)
[2022-12-25] MEDS: cefTRIAXone 2 GM in SODIUM CHLORIDE 0.9% MINIBAG 100 ML IV SCH (09:02)
[2022-12-25] MEDS: ENOXAPARIN 30 MG/0.3 ML SYRINGE SUBQ SCH (09:03)
[2022-12-25] MEDS: MULTIVITAMIN W/MINERALS TABLET PO SCH (09:03)
--- NOTE | 2022-12-25 17:45 | PROVIDER PROGRESS NOTE ---
Subjective - Prog Note Date Prog Note Date: 12/25/22 Prog Note Time: 17:42 - Subjective Pt reports feeling: No change Subjective: She is very quiet. She sleeps most of the day. When you call her name and touch her shoulder she will open her eyes and look at you. Voice is very low, almost an audible but she does answer. Current Medications - Current Medications Current Medications: Active Medications Aspirin (Aspirin Ec 81 Mg Tablet) 81 mg PO DAILY [facility] Carbidopa/Levodopa (Carbidopa/Levodopa Er 25 Mg/100 Mg Tablet) 1 tab PO BID [facility] Carbidopa/Levodopa (Carbidopa/Levodopa 25 Mg/100 Mg Tablet) 1 tab PO 5XD [facility] Cholecalciferol (Cholecalciferol 5,000 Unit Capsule) 50,000 unit PO Q30D [facility] Enoxaparin Sodium (Enoxaparin 30 Mg/0.3 Ml Syringe) 30 mg SUBQ DAILY [facility] Last Admin: 12/25/22 09:03 Dose: 30 mg Dextrose/Sodium Chloride (D5ns) 1,000 mls @ 100 mls/hr IV .Q10H [facility] Last Admin: 12/25/22 15:21 Dose: 100 mls/hr Acetaminophen (Acetaminophen) 1,000 mg in 100 mls @ 400 mls/hr IV Q6HR PRN PRN Reason: Pain or Fever > 38C (100.4F) Ceftriaxone Sodium 2 gm/ (Sodium Chloride) 100 mls @ 200 mls/hr IV DAILY [facility] Last Infusion: 12/25/22 09:44 Dose: Infused Lidocaine (Lidocaine Patch 5%) 1 patch TOP DAILY PRN PRN Reason: PAIN Metoprolol Succinate (Metoprolol Succinate 25 Mg Tablet) 12.5 mg PO QPM [facility] Mirtazapine (Mirtazapine 15 Mg Tablet) 7.5 mg PO QPM [facility] Multi-Ingredient Ointment (Zinc Oxide 20% Oint 30 Gm Tube) 1 applic TOP PRN PRN PRN Reason: Skin Care Last Admin: 12/23/22 08:37 Dose: 1 applic Multivitamins/Minerals (Multivitamin W/Minerals Tablet) 1 tab PO DAILYWM [facility] Last Admin: 12/25/22 09:03 Dose: 1 tab Non-Formulary Medication (D-Mannose [Azo D-Mannose]) 500 mg PO DAILY [facility] Pramipexole Dihydrochloride (Pramipexole 0.25 Mg Tablet) 0.25 mg PO QPM [facility] Sodium Chloride (Sodium Chloride Flush 0.9% 10 Ml Syringe) 10 ml IVP PRN PRN PRN Reason: NEEDED PER PROVIDER ORDERS Sodium Chloride (Sodium Chloride Flush 0.9% 10 Ml Syringe) 10 ml IVP 0100,0900,1700 [facility] Last Admin: 12/25/22 16:54 Dose: Not Given Carbidopa/Levodopa [Carbidopa-Levo ER 25-100 Tab] 1 tab PO BID 01/26/17 Ipratropium [place] 2 sprays RASHI BID 01/26/17 Mirtazapine 7.5 mg PO QPM 01/26/17 Pramipexole [Mirapex] 0.25 mg PO QPM 01/26/17 Acetaminophen [Tylenol] 650 mg PO Q4H PRN 10/09/22 Aspirin [Aspirin EC] 81 mg PO DAILY 10/09/22 Carbidopa/Levodopa 25/100 [Sinemet 25 mg/100 mg] 1 tab PO 5XD 10/09/22 D-Mannose [Azo D-Mannose] 500 mg PO DAILY 10/09/22 Estrogens, Conjugated Cream [Premarin Cream] 0.5 g VG MOFR 10/09/22 Lidocaine Patch 5% [Lidoderm Patch] 1 patch TOP DAILY PRN 10/09/22 Metoprolol Succinate [Toprol Xl] 12.5 mg PO QPM 10/09/22 Sennosides [Senna] 17.2 mg PO DAILY 10/09/22 polyethylene glycoL 3350 [Miralax] 17 g PO DAILY 10/09/22 Cholecalciferol (Vitamin D3) [Vitamin D3] 1,250 mcg PO Q30D 12/22/22 Objective - Vital Signs/Intake & Output Reviewed Vital Signs: Yes Vital Signs: Vital Signs x48h Temp Pulse Resp BP Pulse Ox 12/25/22 16:22 36.3 C L 91 24 163/95 H 96 12/25/22 15:29 36.3 C L 93 24 154/104 H 96 12/25/22 12:08 36.6 C 88 24 145/86 H 97 Intake & Output: Intake & Output 12/22/22 12/23/22 12/24/22 12/25/22 23:59 23:59 23:59 23:59 Intake Total 4087.5 2875.000 3290.000 2501.667 Output Total 75 800 1000 1600 Balance 4012.5 2075.000 2290.000 901.667 - Objective General Appearance: positive: No acute distress, Other (Very frail, cachectic elderly woman who does not move. She relies completely on nursing to rotate and protect her skin and body) Eyes Bilateral: positive: PERRL, EOMI ENT: positive: Dry mucous membranes Neck: positive: No JVD. negative: Stiff neck Respiratory: positive: No respiratory distress (But deep upper airway breath sounds.) Cardiovascular: positive: Regular rate & rhythm, Systolic murmur Abdomen: positive: Non-tender, No organomegaly, Nml bowel sounds Skin: positive: Warm, Dry Extremities: positive: Other (Knees are bent, legs turn inward, and nursing is protecting from pressure ulcers by having pillows on the outer edges of her legs, between her knees, between her ankles) Neurologic/Psychiatric: positive: CN's nml (2-12), Slurred/abnml speech (Almost inaudible, but does respond to questions to deny pain). negative: Motor nml (Complete generalized weakness where she is dependent on nursing to rotator, feed are) - Lab Results Fish Bones: 12/25/22 08:00 12/25/22 08:00 Other Labs: Lab Results x24hrs 12/25/22 12/25/22 Range/Units 08:00 08:00 WBC 8.3 (4.8-10.8) x10^3/uL RBC 4.16 L (4.20-5.40) 10^6/uL Hgb 11.1 L (12.0-16.0) g/dL Hct 36.7 L (37.0-47.0) % MCV 88.2 (81.0-99.0) fL MCH 26.7 L (27.0-31.0) pg MCHC 30.2 L (32.0-36.0) g/dL RDW 15.0 (12.0-15.0) % Plt Count 114 L (130-450) 10^3/uL MPV 11.4 H (7.9-10.8) fL Neut # (Auto) 6.9 H (1.5-6.6) 10^3/uL Lymph # (Auto) 0.9 L (1.5-3.5) 10^3/uL [place] # (Auto) 0.3 (0.0-1.0) 10^3/uL Eos # (Auto) 0.1 (0.0-0.7) 10^3/uL Baso # (Auto) 0.0 (0.0-0.1) 10^3/uL Absolute Nucleated RBC 0.00 x10^3/uL Nucleated RBC % 0.0 /100WBC Sodium 154 H (135-145) mmol/L Potassium 3.4 L (3.5-5.0) mmol/L Chloride 127 H* (101-111) mmol/L Carbon Dioxide 25 (21-32) mmol/L Anion Gap 2.0 L (6-13) BUN 20 (6-20) mg/dL Creatinine 0.4 (0.4-1.0) mg/dL Estimated GFR (MDRD) 150 (>89) Glucose 112 H (70-100) mg/dL Calcium 8.3 L (8.5-10.3) mg/dL ABX Reporting Has patient been on IV antibiotics over the past 48 hours?: Yes Sepsis Event Note (H) - Evaluation Current Stage of Sepsis: Septic shock Possible source of Sepsis: positive: Pulmonary, Genitourinary - Sepsis Criteria Sepsis Criteria: Respiratory: Increasing oxygen requirements, SYSTEMS QA ANALYST: altered consciousness (unrelated to primary neuro pathology), MAP less than 65 mmHg, SBP less than 90 mmHg, Metabolic: lactate > 2 mmol/L Assessment/Plan - Problem List (1) Sepsis Impression: Impression: with shock. Resolved. The patient presented with a blood pressure of 69 systolic, tachycardic, very high white count of 30, elevated lactic acid and the source appears to be either COVID or healthcare associated pneumonia or UTI. Since receiving antibiotics, she has defervesced. Her last temperature was on December 22 and she has been afebrile since then. There has been no tachycardia. And blood pressure has come up today to 140/90 and 140/85 after being in the 120s for the last couple of days. She is no longer hypoxic and is 97 to 99% on room air. Preliminary blood cultures have gram-negative bacilli. PCR has identified it is Proteus and today confirmed Blood culture is positive for Proteus. It is resistant to ciprofloxacin, and intermediate sensitivity to levofloxacin. Otherwise sensitive to ampicillin, Unasyn, cefepime, Ceftriaxone, Zosyn and Bactrim. Antibiotics have been ordered to treat both pneumonia and UTI. As such she is on ceftriaxone day #5, and completed azithromycin 3 doses on 12/24. While she has responded to treatment with normalization of her vital signs, and obtundation has improved to the point that she can at least respond to swallow food, she still has increased respiratory effort or sounds. Those are slowly improving but she is very cachectic. Overall prognosis for her is poor. She was on D5 normal saline and I was going to stop her IV fluids. But she is developing hyperchloremia, hypernatremia. Plan: She has been on 100 cc an hour, and I will change D5NS to D5 alone. Because the patient's POLST indicated she wants comfort directed care, we will not plan to use pressors or put her in the ICU I will continue ceftriaxone for 7-10 days while she is here. (2) KRISTIE (acute kidney injury) resolved. Hypokalemia. Hypernatremia. Conclusion/Plan: This patient's baseline creatinine is 0.4 (records and labs were reviewed). Presented on admission with BUN/creatinine of 44/2.3, consistent with marked volume depletion with this septic shock Laboratory Tests 12/22/22 12/23/22 12/24/22 09:11 05:42 09:26 Creatinine 2.3 H 1.2 H 0.5 Laboratory Tests 12/25/22 08:00 Creatinine 0.4 She has responded well to fluid resuscitation antibiotics. Her creatinine is now back to baseline. I can infer that she is improved from that regard, but this unfortunate female is still quite lethargic, and a poor prognosis. Potassium is still low today. This is in spite of potassium riders yesterday. However today she is 3.4. We will give 40 mill [place] riders and recheck shannon rrow. Plan: Change IV fluids to D5 because of hypernatremia. Potassium riders, 40 mill equivalents today and recheck tomorrow Avoid nephrotoxins Follow BMP daily. (3) Obtundation improved. more awake and able to eat some food. responds to voice and commands but slowly Conclusion/Plan: Patient is underlying dementia and Parkinson's. She presented as obtunded condition 2 months ago also when she had sepsis Plan: continue abx until at baseline. (4) COVID Conclusion/Plan: According to the ED providers discussion with the daughter by phone, this patient tested positive for COVID 1 week ago. The patient has some hypoxia, patchy infiltrates on chest x-ray Plan: IV Decadron Day #4, plan for 10 days The patient is not a candidate to start remdesivir given her onset being a week ago or more (5) Hypoxia resolved Conclusion/Plan: This is likely from her pneumonia. Even though she was saturating at 97 to 99%, she was still getting nasal cannula on her first day here. Starting on the we took off her oxygen and she has been 99 to 100% on room air. Plan: We will provide supplemental oxygen, saturation target will be 90% or above (6) UTI (urinary tract infection) Conclusion/Plan: Patient gets frequent UTIs. The UA now showed a lot of squamous cells therefore no culture was indicated. Patient has already been started on empiric ceftriaxone which would treat a UTI as well and is treating this pneumonia. Proteus is growing in her blood. Plan: No repeat UA Continue empiric iv ceftriaxone Qualifiers: Urinary tract infection type: site unspecified Hematuria presence: without hematuria Qualified Code(s): N39.0 - Urinary tract infection, site not specified (7) Parkinson's disease dementia Conclusion/Plan: The daughter had told this that even at her best, the patient has hallucination s. I will resume her meds since she is swallowing now. mirtazapine 7.5 p.o. every afternoon. She is on 2 forms of carbidopa levodopa. Extended release 25/100 twice daily. And carbidopa levodopa 25/100 at 6 in the morning, 10 AM, 1400, 1800, and 2200. (8)Severe protein calorie malnutrition In December 2016 she was 74 kg. February 2017 she was 69 kg. July 2021 she was 54 kg. September 2022 she was 45 kg. She is 44 kg on admission. 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 Lack of coordination with swallowing mechanism. This is very common with motor neuron disease. Focus is on comfort measures so she is not a candidate for tube feeds or PEG tube. Qualifiers: Qualified Code(s): A41.9 - Sepsis, unspecified organism; R65.21 - Severe sepsis with septic shock; N17.9 - Acute kidney failure, unspecified
[2022-12-25] MEDS ORDERED: CHOLECALCIFEROL 5,000 UNIT CAPSULE PO SCH (18:00)
[2022-12-25] MEDS: CARBIDOPA/LEVODOPA 25 MG/100 MG TABLET PO SCH ×2 (19:06→22:20)
[2022-12-25] MEDS: POTASSIUM CHLOR 10 MEQ/100 ML 10 MEQ/100 ML BAG IV SCH ×4 (19:06→22:47)
[2022-12-25] MEDS: DEXTROSE 5% 1,000 ML IV SCH (19:33)
[2022-12-25] MEDS: CARBIDOPA/LEVODOPA ER 25 MG/100 MG TABLET PO SCH (22:19)
[2022-12-25] MEDS: PRAMIPEXOLE 0.25 MG TABLET PO SCH (22:19)
[2022-12-25] MEDS: METOPROLOL SUCCINATE 25 MG TABLET PO SCH (22:20)
[2022-12-25] MEDS: MIRTAZAPINE 15 MG TABLET PO SCH (22:20)
[2022-12-26] MEDS: SODIUM CHLORIDE FLUSH 0.9% 10 ML SYRINGE IVP SCH ×3 (00:10→18:45)
[2022-12-26] MEDS: DEXTROSE 5% 1,000 ML IV SCH ×2 (05:53→21:46)
[2022-12-26] MEDS: CARBIDOPA/LEVODOPA 25 MG/100 MG TABLET PO SCH ×5 (05:54→22:48)
[2022-12-26 06:07] LABS: BASOPHILS % (AUTO) 0.3 %; EOSINOPHILS # (AUTO) 0.1 10^3/uL (0.0-0.7); EOSINOPHILS % (AUTO) 1.9 %; HCT - HEMATOCRIT 34.5 % (37.0-47.0); HGB - HEMOGLOBIN 10.5 g/dL (12.0-16.0); LYMPHOCYTES # (AUTO) 1.2 10^3/uL (1.5-3.5); LYMPHOCYTES % (AUTO) 20.3 %; MEAN CORPUSCULAR HEMOGLOBIN 26.6 pg (27.0-31.0); MEAN CORPUSCULAR HGB CONC 30.4 g/dL (32.0-36.0); MEAN CORPUSCULAR VOLUME 87.3 fL (81.0-99.0); MEAN PLATELET VOLUME 11.2 fL (7.9-10.8); MONOCYTES # (AUTO) 0.5 10^3/uL (0.0-1.0); MONOCYTES % (AUTO) 7.9 %; NEUTROPHILS # (AUTO) 3.9 10^3/uL (1.5-6.6); NEUTROPHILS % (AUTO) 67.9 %; PLT - PLATELET COUNT 119 10^3/uL (130-450); RED BLOOD COUNT 3.95 10^6/uL (4.20-5.40); RED CELL DISTRIBUTION WIDTH 14.8 % (12.0-15.0); WHITE BLOOD COUNT 5.7 x10^3/uL (4.8-10.8)
[2022-12-26 06:12] LABS: CALCIUM 7.8 mg/dL (8.5-10.3); CREATININE 0.4 mg/dL (0.4-1.0); POTASSIUM 3.2 mmol/L (3.5-5.0)
[2022-12-26] MEDS: cefTRIAXone 2 GM in SODIUM CHLORIDE 0.9% MINIBAG 100 ML IV SCH (08:31)
[2022-12-26] MEDS: ASPIRIN EC 81 MG TABLET PO SCH (08:31)
[2022-12-26] MEDS: CARBIDOPA/LEVODOPA ER 25 MG/100 MG TABLET PO SCH ×2 (08:31→22:48)
[2022-12-26] MEDS: MULTIVITAMIN W/MINERALS TABLET PO SCH (08:31)
[2022-12-26] MEDS: ENOXAPARIN 30 MG/0.3 ML SYRINGE SUBQ SCH (08:31)
[2022-12-26] MEDS: D MANNOSE 500 MG PO SCH (08:32)
[2022-12-26] MEDS: POTASSIUM CHLOR 10 MEQ/100 ML 10 MEQ/100 ML BAG IV SCH ×4 (09:20→12:56)
--- NOTE | 2022-12-26 17:50 | PROVIDER PROGRESS NOTE ---
Subjective - Prog Note Date Prog Note Date: 12/26/22 Prog Note Time: 17:47 - Subjective Subjective: In speaking to social work today, who spent quite a bit of time speaking to the daughter, social work describes a baseline patient that is very similar to what we are seeing now. She is essentially mute, cachectic, bedbound. Minimally interactive with the people or her environment around her. Believe dependent on someone for toileting, bathing, and feeding her. The patient is hemodynamically stable, and relies on SWABBER's and nurses for complete care.She does open up her eyes and will look at me but is unresponsive. Nursing reports that at the begin jairo of this admission, advance care planning was discussed with the daughter, but the daughter's response was "you are asking me to assassinate my mother". Current Medications - Current Medications Current Medications: Active Medications Aspirin (Aspirin Ec 81 Mg Tablet) 81 mg PO DAILY [facility] Last Admin: 12/26/22 08:31 Dose: 81 mg Carbidopa/Levodopa (Carbidopa/Levodopa Er 25 Mg/100 Mg Tablet) 1 tab PO BID [facility] Last Admin: 12/26/22 08:31 Dose: 1 tab Carbidopa/Levodopa (Carbidopa/Levodopa 25 Mg/100 Mg Tablet) 1 tab PO 5XD [facility] Last Admin: 12/26/22 15:05 Dose: 1 tab Cholecalciferol (Cholecalciferol 5,000 Unit Capsule) 50,000 unit PO Q30D [facility] Enoxaparin Sodium (Enoxaparin 30 Mg/0.3 Ml Syringe) 30 mg SUBQ DAILY [facility] Last Admin: 12/26/22 08:31 Dose: 30 mg Acetaminophen (Acetaminophen) 1,000 mg in 100 mls @ 400 mls/hr IV Q6HR PRN PRN Reason: Pain or Fever > 38C (100.4F) Ceftriaxone Sodium 2 gm/ (Sodium Chloride) 100 mls @ 200 mls/hr IV DAILY [facility] Last Infusion: 12/26/22 09:20 Dose: Infused Dextrose (D5w) 1,000 mls @ 100 mls/hr IV .Q10H [facility] Last Admin: 12/26/22 05:53 Dose: 100 mls/hr Lidocaine (Lidocaine Patch 5%) 1 patch TOP DAILY PRN PRN Reason: PAIN Metoprolol Succinate (Metoprolol Succinate 25 Mg Tablet) 12.5 mg PO QPM [facility] Last Admin: 12/25/22 22:20 Dose: 12.5 mg Mirtazapine (Mirtazapine 15 Mg Tablet) 7.5 mg PO QPM [facility] Last Admin: 12/25/22 22:20 Dose: 7.5 mg Multi-Ingredient Ointment (Zinc Oxide 20% Oint 30 Gm Tube) 1 applic TOP PRN PRN PRN Reason: Skin Care Last Admin: 12/23/22 08:37 Dose: 1 applic Multivitamins/Minerals (Multivitamin W/Minerals Tablet) 1 tab PO DAILYWM [facility] Last Admin: 12/26/22 08:31 Dose: 1 tab D-Mannose [Azo D- Mannose] 500 Mg Capsule 1 each PO DAILY [facility] Last Admin: 12/26/22 08:32 Dose: Not Given Pramipexole Dihydrochloride (Pramipexole 0.25 Mg Tablet) 0.25 mg PO QPM [facility] Last Admin: 12/25/22 22:19 Dose: 0.25 mg Sodium Chloride (Sodium Chloride Flush 0.9% 10 Ml Syringe) 10 ml IVP PRN PRN PRN Reason: NEEDED PER PROVIDER ORDERS Sodium Chloride (Sodium Chloride Flush 0.9% 10 Ml Syringe) 10 ml IVP 0100,0900,1700 [facility] Last Admin: 12/26/22 08:32 Dose: 10 ml Carbidopa/Levodopa [Carbidopa-Levo ER 25-100 Tab] 1 tab PO BID 01/26/17 Ipratropium [place] 2 sprays RASHI BID 01/26/17 Mirtazapine 7.5 mg PO QPM 01/26/17 Pramipexole [Mirapex] 0.25 mg PO QPM 01/26/17 Acetaminophen [Tylenol] 650 mg PO Q4H PRN 10/09/22 Aspirin [Aspirin EC] 81 mg PO DAILY 10/09/22 Carbidopa/Levodopa 25/100 [Sinemet 25 mg/100 mg] 1 tab PO 5XD 10/09/22 D-Mannose [Azo D-Mannose] 500 mg PO DAILY 10/09/22 Estrogens, Conjugated Cream [Premarin Cream] 0.5 g VG MOFR 10/09/22 Lidocaine Patch 5% [Lidoderm Patch] 1 patch TOP DAILY PRN 10/09/22 Metoprolol Succinate [Toprol Xl] 12.5 mg PO QPM 10/09/22 Sennosides [Senna] 17.2 mg PO DAILY 10/09/22 polyethylene glycoL 3350 [Miralax] 17 g PO DAILY 10/09/22 Cholecalciferol (Vitamin D3) [Vitamin D3] 1,250 mcg PO Q30D 12/22/22 Objective - Vital Signs/Intake & Output Reviewed Vital Signs: Yes Vital Signs: Vital Signs x48h Temp Pulse Resp BP Pulse Ox 12/26/22 15:58 36.8 C 77 24 131/85 H 97 12/26/22 13:00 36.7 C 80 20 134/97 H 97 Intake & Output: Intake & Output 12/23/22 12/24/22 12/25/22 12/26/22 23:59 23:59 23:59 23:59 Intake Total 2875.000 3290.000 3026.667 1665 Output Total 800 1000 2050 1925 Balance 2075.000 2290.000 976.667 -260 - Objective General Appearance: positive: Other (Eyes half open, not really responsive to my voice) Eyes Bilateral: positive: PERRL, EOMI ENT: positive: Dry mucous membranes (In spite of adequate hydration and p.o. intake that she is being fed by the nurse) Neck: positive: No JVD. negative: Lymphadenopathy (R), Lymphadenopathy (L), Stiff neck Respiratory: positive: No respiratory distress. negative: Breath sounds nml (Every day she has had coarse upper airway sounds.), Wheezes, Rales, Rhonchi Cardiovascular: positive: Regular rate & rhythm Abdomen: positive: Non-tender, No organomegaly, Nml bowel sounds, No distention Skin: positive: Warm, Dry Extremities: positive: Pedal edema (Hands and feet.) Neurologic/Psychiatric: positive: Other (Minimally responsive to voice. Will answer but her responses are slow and audible I can barely hear her when she speaks. I do not understand anything she is saying.). negative: Motor nml (Severe diffuse generalized weakness, completely dependent on nurses to feed her, bathe her, dress) - Lab Results Fish Bones: 12/26/22 05:53 12/26/22 05:53 Other Labs: Lab Results x24hrs 12/26/22 12/26/22 Range/Units 05:53 05:53 WBC 5.7 (4.8-10.8) x10^3/uL RBC 3.95 L (4.20-5.40) 10^6/uL Hgb 10.5 L (12.0-16.0) g/dL Hct 34.5 L (37.0-47.0) % MCV 87.3 (81.0-99.0) fL MCH 26.6 L (27.0-31.0) pg MCHC 30.4 L (32.0-36.0) g/dL RDW 14.8 (12.0-15.0) % Plt Count 119 L (130-450) 10^3/uL MPV 11.2 H (7.9-10.8) fL Neut # (Auto) 3.9 (1.5-6.6) 10^3/uL Lymph # (Auto) 1.2 L (1.5-3.5) 10^3/uL [place] # (Auto) 0.5 (0.0-1.0) 10^3/uL Eos # (Auto) 0.1 (0.0-0.7) 10^3/uL Baso # (Auto) 0.0 (0.0-0.1) 10^3/uL Absolute Nucleated RBC 0.00 x10^3/uL Nucleated RBC % 0.0 /100WBC Sodium 147 H (135-145) mmol/L Potassium 3.2 L (3.5-5.0) mmol/L Chloride 117 H (101-111) mmol/L Carbon Dioxide 26 (21-32) mmol/L Anion Gap 4.0 L (6-13) BUN 12 (6-20) mg/dL Creatinine 0.4 (0.4-1.0) mg/dL Estimated GFR (MDRD) 150 (>89) Glucose 101 H (70-100) mg/dL Calcium 7.8 L (8.5-10.3) mg/dL ABX Reporting Has patient been on IV antibiotics over the past 48 hours?: Yes Sepsis Event Note (H) - Evaluation Current Stage of Sepsis: Septic shock Possible source of Sepsis: positive: Pulmonary, Genitourinary - Sepsis Criteria Sepsis Criteria: Respiratory: Increasing oxygen requirements, TRAINING OFFICER: altered consciousness (unrelated to primary neuro pathology), MAP less than 65 mmHg, SBP less than 90 mmHg, Metabolic: lactate > 2 mmol/L Assessment/Plan - Problem List (1) Sepsis Impression: with shock. Resolved. The patient presented with a blood pressure of 69 systolic, tachycardic, very high white count of 30, elevated lactic acid and the source appears to be either COVID or healthcare associated pneumonia or UTI. Since receiving antibiotics, she has defervesced. Her last temperature was on December 22 and she has been afebrile since then. There has been no tachycardia. And blood pressure has come up today to 140/90 and 140/85 after being in the 120s for the last couple of days. She is no longer hypoxic and is 97 to 99% on room air. Preliminary blood cultures have gram-negative bacilli. PCR has identified it is Proteus and today confirmed Blood culture is positive for Proteus. It is resistant to ciprofloxacin, and intermediate sensitivity to levofloxacin. Otherwise sensitive to ampicillin, Unasyn, cefepime, Ceftriaxone, Zosyn and Bactrim. Antibiotics have been ordered to treat both pneumonia and UTI. As such she is on ceftriaxone day #6, and completed azithromycin 3 doses on 12/24. While she has responded to treatment with normalization of her vital signs, and obtundation has improved to the point that she can at least respond to swallow food, she still has increased respiratory effort or sounds. Those are slowly improving but she is very cachectic. Overall prognosis for her is poor. She was on D5 normal saline and I was going to stop her IV fluids. But she is developing hyperchloremia, hypernatremia.I changed her to D5 yesterday evening. Sodium is gone from 154-147. Chloride is getting better and is come down to 117 from 127. So she is responding Plan: Continue D5 without normal saline. Because the patient's POLST indicated she wants comfort directed care, we will n ot plan to use pressors or put her in the ICU I will continue ceftriaxone for 7-10 days while she is here. (2) KRISTIE (acute kidney injury) resolved. Hypokalemia. Hypernatremia. Conclusion/Plan: This patient's baseline creatinine is 0.4 (records and labs were reviewed). Presented on admission with BUN/creatinine of 44/2.3, consistent with marked volume depletion with this septic shock Laboratory Tests 0312/23/22 12/24/22 09:11 05:42 09:26 Creatinine 2.3 H 1.2 H 0.5 Laboratory Tests 12/25/22 08:00 Creatinine 0.4 Creatinine is 0.4 today as well. She has responded well to fluid resuscitation antibiotics. Her creatinine is now back to baseline. I can infer that she is improved from that regard, but this unfortunate female is still quite lethargic, and a poor prognosis. Potassium is still low today. This is in spite of potassium riders several days in a row. Today is 3.2. We will give 40 meq potassium riders and recheck tomorrow. Plan: Continue D5 because of hypernatremia. Potassium riders, 40 mill equivalents today and recheck tomorrow Avoid nephrotoxins Follow BMP daily. (3) Obtundation improved. more awake and able to eat some food. responds to voice and commands but slowly. She is at baseline from what I can tell. Conclusion/Plan: Patient is underlying dementia and Parkinson's. She presented as obtunded condition 2 months ago also when she had sepsis Plan: continue abx (4) COVID Conclusion/Plan: According to the ED providers discussion with the daughter by phone, this patient tested positive for COVID 1 week ago. The patient has some hypoxia, patchy infiltrates on chest x-ray Plan: IV Decadron Day #5, plan for 10 days The patient is not a candidate to start remdesivir given her onset being a week ago or more (5) Hypoxia resolved Conclusion/Plan: This is likely from her pneumonia. Even though she was saturating at 97 to 99%, she was still getting nasal cannula on her first day here. Starting on the we took off her oxygen and she has been 99 to 100% on room air. Plan: We will provide supplemental oxygen, saturation target will be 90% or above (6) UTI (urinary tract infection) Conclusion/Plan: Patient gets frequent UTIs. The UA now showed a lot of squamous cells therefore no culture was indicated. Patient has already been started on empiric ceftriaxone which would treat a UTI as well and is treating this pneumonia. Proteus is growing in her blood. Plan: No repeat UA Continue empiric iv ceftriaxone Qualifiers: Urinary tract infection type: site unspecified Hematuria presence: without hematuria Qualified Code(s): N39.0 - Urinary tract infection, site not spec ified (7) Parkinson's disease dementia Conclusion/Plan: The daughter had told this that even at her best, the patient has hallucinations. I have her meds since she is swallowing now. mirtazapine 7.5 p.o. every afternoon. She is on 2 forms of carbidopa levodopa. Extended release 25/100 twice daily. And carbidopa levodopa 25/100 at 6 in the morning, 10 AM, 1400, 1800, and 2200. (8)Severe protein calorie malnutrition In December 2016 she was 74 kg. February 2017 she was 69 kg. July 2021 she was 54 kg. September 2022 she was 45 kg. She is 44 kg on admission. 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 Lack of coordination with swallowing mechanism. This is very common with motor neuron disease. Focus is on comfort measures so she is not a candidate for tube feeds or PEG tube. Qualifiers: Qualified Code(s): A41.9 - Sepsis, unspecified organism; R65.21 - Severe seps is with septic shock; N17.9 - Acute kidney failure, unspecified
[2022-12-26] MEDS: PRAMIPEXOLE 0.25 MG TABLET PO SCH (22:48)
[2022-12-26] MEDS: MIRTAZAPINE 15 MG TABLET PO SCH (22:48)
[2022-12-26] MEDS: METOPROLOL SUCCINATE 25 MG TABLET PO SCH (22:48)
[2022-12-27] MEDS: SODIUM CHLORIDE FLUSH 0.9% 10 ML SYRINGE IVP SCH ×3 (04:21→17:20)
[2022-12-27] MEDS: CARBIDOPA/LEVODOPA 25 MG/100 MG TABLET PO SCH ×5 (05:30→22:22)
[2022-12-27 05:54] LABS: BASOPHILS % (AUTO) 0.4 %; EOSINOPHILS # (AUTO) 0.3 10^3/uL (0.0-0.7); EOSINOPHILS % (AUTO) 6.2 %; HCT - HEMATOCRIT 34.1 % (37.0-47.0); HGB - HEMOGLOBIN 10.4 g/dL (12.0-16.0); LYMPHOCYTES # (AUTO) 1.2 10^3/uL (1.5-3.5); LYMPHOCYTES % (AUTO) 24.8 %; MEAN CORPUSCULAR HEMOGLOBIN 26.6 pg (27.0-31.0); MEAN CORPUSCULAR HGB CONC 30.5 g/dL (32.0-36.0); MEAN CORPUSCULAR VOLUME 87.2 fL (81.0-99.0); MONOCYTES # (AUTO) 0.5 10^3/uL (0.0-1.0); MONOCYTES % (AUTO) 9.9 %; NEUTROPHILS # (AUTO) 2.6 10^3/uL (1.5-6.6); NEUTROPHILS % (AUTO) 56.3 %; PLT - PLATELET COUNT 141 10^3/uL (130-450); RED BLOOD COUNT 3.91 10^6/uL (4.20-5.40); RED CELL DISTRIBUTION WIDTH 14.6 % (12.0-15.0); WHITE BLOOD COUNT 4.7 x10^3/uL (4.8-10.8)
[2022-12-27 05:59] LABS: CALCIUM 7.8 mg/dL (8.5-10.3); CREATININE 0.3 mg/dL (0.4-1.0); POTASSIUM 3.4 mmol/L (3.5-5.0)
[2022-12-27] MEDS: cefTRIAXone 2 GM in SODIUM CHLORIDE 0.9% MINIBAG 100 ML IV SCH (08:48)
[2022-12-27] MEDS: MULTIVITAMIN W/MINERALS TABLET PO SCH (08:48)
[2022-12-27] MEDS: ENOXAPARIN 30 MG/0.3 ML SYRINGE SUBQ SCH (08:48)
[2022-12-27] MEDS: ASPIRIN EC 81 MG TABLET PO SCH (08:48)
[2022-12-27] MEDS: CARBIDOPA/LEVODOPA ER 25 MG/100 MG TABLET PO SCH ×2 (08:48→21:15)
[2022-12-27] MEDS: D MANNOSE 500 MG PO SCH (08:49)
[2022-12-27] MEDS: DEXTROSE 5% 1,000 ML IV SCH ×2 (08:57→15:52)
[2022-12-27] MEDS: POTASSIUM CHLOR 10 MEQ/100 ML 10 MEQ/100 ML BAG IV SCH ×4 (09:38→12:43)
[2022-12-27] MEDS: polyethylene glycoL 3350 17 GM PACKET PO SCH (10:49)
--- NOTE | 2022-12-27 11:42 | PROVIDER PROGRESS NOTE ---
Subjective - Prog Note Date Prog Note Date: 12/27/22 Prog Note Time: 11:39 - Subjective Subjective: Granddaughter was at the bedside this morning. Feeding grandma. Patient's daughter was on the phone for FaceTime. All questions answered. They explained to me that her voice got so low because she was without her Parkinson's drugs for a while. Swallowing and speech were really affected. Now that she is on her Parkinson's medications she is getting a little bit better. Current Medications - Current Medications Current Medications: Active Medications Aspirin (Aspirin Ec 81 Mg Tablet) 81 mg PO DAILY [facility] Last Admin: 12/27/22 08:48 Dose: 81 mg Carbidopa/Levodopa (Carbidopa/Levodopa Er 25 Mg/100 Mg Tablet) 1 tab PO BID [facility] Last Admin: 12/27/22 08:48 Dose: 1 tab Carbidopa/Levodopa (Carbidopa/Levodopa 25 Mg/100 Mg Tablet) 1 tab PO 5XD [facility] Last Admin: 12/27/22 18:31 Dose: 1 tab Cholecalciferol (Cholecalciferol 5,000 Unit Capsule) 50,000 unit PO Q30D [facility] Enoxaparin Sodium (Enoxaparin 30 Mg/0.3 Ml Syringe) 30 mg SUBQ DAILY [facility] Last Admin: 12/27/22 08:48 Dose: 30 mg Acetaminophen (Acetaminophen) 1,000 mg in 100 mls @ 400 mls/hr IV Q6HR PRN PRN Reason: Pain or Fever > 38C (100.4F) Last Infusion: 12/27/22 17:40 Dose: Infused Ceftriaxone Sodium 2 gm/ (Sodium Chloride) 100 mls @ 200 mls/hr IV DAILY [facility] Last Infusion: 12/27/22 09:38 Dose: Infused Lidocaine (Lidocaine Patch 5%) 1 patch TOP DAILY PRN PRN Reason: PAIN Metoprolol Succinate (Metoprolol Succinate 25 Mg Tablet) 12.5 mg PO QPM [facility] Last Admin: 12/26/22 22:48 Dose: 12.5 mg Mirtazapine (Mirtazapine 15 Mg Tablet) 7.5 mg PO QPM [facility] Last Admin: 12/26/22 22:48 Dose: 7.5 mg Multi-Ingredient Ointment (Zinc Oxide 20% Oint 30 Gm Tube) 1 applic TOP PRN PRN PRN Reason: Skin Care Last Admin: 12/23/22 08:37 Dose: 1 applic Multivitamins/Minerals (Multivitamin W/Minerals Tablet) 1 tab PO DAILYWM [facility] Last Admin: 12/27/22 08:48 Dose: 1 tab D-Mannose [Azo D- Mannose] 500 Mg Capsule 1 each PO DAILY [facility] Last Admin: 12/27/22 08:49 Dose: Not Given Polyethylene Glycol (Polyethylene Glycol 3350 17 Gm Packet) 17 gm PO DAILY [facility] Last Admin: 12/27/22 10:49 Dose: 17 gm Pramipexole Dihydrochloride (Pramipexole 0.25 Mg Tablet) 0.25 mg PO QPM [facility] Last Admin: 12/26/22 22:48 Dose: 0.25 mg Sodium Chloride (Sodium Chloride Flush 0.9% 10 Ml Syringe) 10 ml IVP PRN PRN PRN Reason: NEEDED PER PROVIDER ORDERS Sodium Chloride (Sodium Chloride Flush 0.9% 10 Ml Syringe) 10 ml IVP 0100,0900,1700 [facility] Last Admin: 12/27/22 17:20 Dose: 10 ml Carbidopa/Levodopa [Carbidopa-Levo ER 25-100 Tab] 1 tab PO BID 01/26/17 Ipratropium Berkley 2 sprays RASHI BID 01/26/17 Mirtazapine 7.5 mg PO QPM 01/26/17 Pramipexole [Mirapex] 0.25 mg PO QPM 01/26/17 Acetaminophen [Tylenol] 650 mg PO Q4H PRN 10/09/22 Aspirin [Aspirin EC] 81 mg PO DAILY 10/09/22 Carbidopa/Levodopa 25/100 [Sinemet 25 mg/100 mg] 1 tab PO 5XD 10/09/22 D-Mannose [Azo D-Mannose] 500 mg PO DAILY 10/09/22 Estrogens, Conjugated Cream [Premarin Cream] 0.5 g VG MOFR 10/09/22 Lidocaine Patch 5% [Lidoderm Patch] 1 patch TOP DAILY PRN 10/09/22 Metoprolol Succinate [Toprol Xl] 12.5 mg PO QPM 10/09/22 Sennosides [Senna] 17.2 mg PO DAILY 10/09/22 polyethylene glycoL 3350 [Miralax] 17 g PO DAILY 10/09/22 Cholecalciferol (Vitamin D3) [Vitamin D3] 1,250 mcg PO Q30D 12/22/22 Objective - Vital Signs/Intake & Output Reviewed Vital Signs: Yes Vital Signs: Vital Signs x48h Temp Pulse Resp BP BP Pulse Ox 12/27/22 07:46 36.4 C L 70 20 96/59 L 97 12/27/22 05:00 36.6 C 72 18 120/74 96 Intake & Output: Intake & Output 12/24/22 12/25/22 12/26/22 12/27/22 23:59 23:59 23:59 23:59 Intake Total 3290.000 3026.667 3985 1320 Output Total 1000 2050 2300 975 Balance 2290.000 114.840 6118 345 - Objective General Appearance: positive: Alert (This is the most alert I have seen her. She is interacting with her granddaughter. Able to tell her daughter that her legs hurt and she wants that "squeezing thing". She is referring to SCDs. She is cooperating with granddaughter to eat), Other (Very frail, thin, cachectic elderly female) Eyes Bilateral: positive: PERRL, EOMI ENT: positive: No signs of dehydration Neck: positive: No JVD. negative: Stiff neck Respiratory: positive: No respiratory distress, Rhonchi. negative: Wheezes, Rales Cardiovascular: positive: Regular rate & rhythm, Systolic murmur Abdomen: positive: Non-tender, No organomegaly, Nml bowel sounds, No distention Skin: positive: Warm, Dry Extremities: positive: Full ROM (On passive range of motion. She really does not do spontaneous movement on her own) Neurologic/Psychiatric: positive: Other (Oriented to person. Recognizes her daughter.). negative: CN's nml (2-12) (Voice slow and almost inaudible, expressionless face), Motor nml (Stiff bending at elbows and when I try and bend to her at her hip) - Lab Results Fish Bones: 12/27/22 05:34 12/27/22 05:34 Other Labs: Lab Results x24hrs 12/27/22 12/27/22 Range/Units 05:34 05:34 WBC 4.7 L (4.8-10.8) x10^3/uL RBC 3.91 L (4.20-5.40) 10^6/uL Hgb 10.4 L (12.0-16.0) g/dL Hct 34.1 L (37.0-47.0) % MCV 87.2 (81.0-99.0) fL MCH 26.6 L (27.0-31.0) pg MCHC 30.5 L (32.0-36.0) g/dL RDW 14.6 (12.0-15.0) % Plt Count 141 (130-450) 10^3/uL MPV 11.0 H (7.9-10.8) fL Neut # (Auto) 2.6 (1.5-6.6) 10^3/uL Lymph # (Auto) 1.2 L (1.5-3.5) 10^3/uL Martin # (Auto) 0.5 (0.0-1.0) 10^3/uL Eos # (Auto) 0.3 (0.0-0.7) 10^3/uL Baso # (Auto) 0.0 (0.0-0.1) 10^3/uL Absolute Nucleated RBC 0.00 x10^3/uL Nucleated RBC % 0.0 /100WBC Sodium 142 (135-145) mmol/L Potassium 3.4 L (3.5-5.0) mmol/L Chloride 111 (101-111) mmol/L Carbon Dioxide 26 (21-32) mmol/L Anion Gap 5.0 L (6-13) BUN 11 (6-20) mg/dL Creatinine 0.3 L (0.4-1.0) mg/dL Estimated GFR (MDRD) 209 (>89) Glucose 98 (70-100) mg/dL Calcium 7.8 L (8.5-10.3) mg/dL ABX Reporting Has patient been on IV antibiotics over the past 48 hours?: Yes Sepsis Event Note (H) - Evaluation Current Stage of Sepsis: Septic shock Possible source of Sepsis: positive: Pulmonary, Genitourinary - Sepsis Criteria Sepsis Criteria: Respiratory: Increasing oxygen requirements, YARDER PUNCHER: altered consciousness (unrelated to primary neuro pathology), MAP less than 65 mmHg, SBP less than 90 mmHg, Metabolic: lactate > 2 mmol/L Assessment/Plan - Problem List (1) Proteus infection Impression: (1) Sepsis with shock resolved with proteus bacteremia identified Impression: The patient presented with a blood pressure of 69 systolic, tachycardic, very high white count of 30, elevated lactic acid and the source appears to be either COVID or healthcare associated pneumonia or UTI. Since receiving antibiotics, she has defervesced. Her last temperature was on December 22 and she has been afebrile since then. There has been no tachycardia. And blood pressure has come up today to 140/90 and 140/85 after being in the 120s for the last couple of days. She is no longer hypoxic and is 97 to 99% on room air. Preliminary blood cultures have gram-negative bacilli. PCR has identified it is Proteus and 12/26/22 results confirmed Blood culture is positive for Proteus. It is resistant to ciprofloxacin, and intermediate sensitivity to levofloxacin. Otherwise sensitive to ampicillin, Unasyn, cefepime, Ceftriaxone, Zosyn and Bactrim. Antibiotics have been ordered to treat both pneumonia and UTI. As such she is on ceftriaxone day #7, and completed azithromycin 3 doses on 12/24. While she has responded to treatment with normalization of her vital signs, and obtundation has improved to the point that she can at least respond to swallow food, she still has increased respiratory effort or sounds. Those are slowly improving but she is very cachectic. Overall prognosis for her is poor. She was on D5 normal saline and I was going to stop her IV fluids. But she developed hyperchloremia, hypernatremia. I changed her to D5 12/25 in the evening. Sodium has improved from 154->147>>142. Chloride is getting better and is come down to 117 from 127. So she is responding Plan: stop IVF but continue to monitor Na, K, creat Because the patient's POLST indicated she wants comfort directed care, we will not plan to use pressors or put her in the ICU I will continue ceftriaxone for 7-10 days while she is here since here proteus has multidrug resistance and can't be easily switched to po (2) KRISTIE (acute kidney injury) resolved. Hypokalemia. Hypernatremia. Conclusion/Plan: This patient's baseline creatinine is 0.4 (records and labs were reviewed). Presented on admission with BUN/creatinine of 44/2.3, consistent with marked volume depletion with this septic shock Laboratory Tests 12/22/22 12/23/22 12/24/22 09:11 05:42 09:26 Creatinine 2.3 H 1.2 H 0.5 Laboratory Tests 12/25/22 08:00 Creatinine 0.4 Laboratory Tests 12/26/22 12/27/22 05:53 05:34 Creatinine 0.4 0.3 L She has responded well to fluid resuscitation antibiotics. Her creatinine is now back to baseline. I can infer that she is improved from that regard, but this unfortunate female is still quite lethargic, and a poor prognosis. Potassium is still low today. This is in spite of potassium riders several days in a row. Today is 3.4. We will give 40 meq potassium riders and recheck tomorrow. Plan: Stop IV fluids. Potassium riders, 40 mill equivalents today and recheck tomorrow Avoid nephrotoxins Follow BMP daily. (3) Obtundation improved. more awake and able to eat some food. responds to voice and commands but slowly. She is at baseline from what I can tell. Granddaughter states that she can get very muted and withdrawn if she does not give her medications. This makes sense that now that she has been able to swallow, and I started her medications, the patient is little bit more alert. Conclusion/Plan: Patient is underlying dementia and Parkinson's. She presented as obtunded condition 2 months ago also when she had sepsis Plan: continue abx (4) COVID Conclusion/Plan: According to the ED providers discussion with the daughter by phone, this patient tested positive for COVID 1 week ago. The patient has some hypoxia, patchy infiltrates on chest x-ray Plan: IV Decadron Day #6, plan for 10 days The patient is not a candidate to start remdesivir given her onset being a week ago or more (5) Hypoxia resolved Conclusion/Plan: This is likely from her pneumonia. Even though she was saturating at 97 to 99%, she was still getting nasal cannula on her first day here. Starting on the we took off her oxygen and she has been 99 to 100% on room air. Plan: We will provide supplemental oxygen, saturation target will be 90% or above (6) UTI (urinary tract infection) Conclusion/Plan: Patient gets frequent UTIs. The UA now showed a lot of squamous cells therefore no culture was indicated. Patient has already been started on empiric ceftriaxone which would treat a UTI as well and is treating this pneumonia. Proteus is growing in her blood. Plan: No repeat UA Continue empiric iv ceftriaxone Qualifiers: Urinary tract infection type: site unspecified Hematuria presence: without hematuria Qualified Code(s): N39.0 - Urinary tract infection, site not specified (7) Parkinson's disease dementia Conclusion/Plan: The daughter had told this that even at her best, the patient has hallucinations. I have her meds since she is swallowing now. mirtazapine 7.5 p.o. every afternoon. She is on 2 forms of carbidopa levodopa. Extended release 25/100 twice daily. And carbidopa levodopa 25/100 at 6 in the morning, 10 AM, 1400, 1800, and 2200. (8)Severe protein calorie malnutrition In December 2016 she was 74 kg. February 2017 she was 69 kg. July 2021 she was 54 kg. September 2022 she was 45 kg. She is 44 kg on admission. 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 Lack of coordination with swallowing mechanism. This is very common with motor neuron disease. Focus is on comfort measures so she is not a candidate for tube feeds or PEG tube. (2) Sepsis Qualifiers: Qualified Code(s): A41.9 - Sepsis, unspecified organism; R65.21 - Severe sepsis with septic shock; N17.9 - Acute kidney failure, unspecified
[2022-12-27] MEDS: PRAMIPEXOLE 0.25 MG TABLET PO SCH (21:16)
[2022-12-27] MEDS: MIRTAZAPINE 15 MG TABLET PO SCH (21:16)
[2022-12-27] MEDS: METOPROLOL SUCCINATE 25 MG TABLET PO SCH (21:17)
[2022-12-28] MEDS: SODIUM CHLORIDE FLUSH 0.9% 10 ML SYRINGE IVP SCH ×3 (00:12→17:39)
[2022-12-28] MEDS: CARBIDOPA/LEVODOPA 25 MG/100 MG TABLET PO SCH ×5 (05:06→21:41)
[2022-12-28 06:06] LABS: BASOPHILS % (AUTO) 0.4 %; EOSINOPHILS # (AUTO) 0.4 10^3/uL (0.0-0.7); EOSINOPHILS % (AUTO) 8.7 %; HGB - HEMOGLOBIN 10.5 g/dL (12.0-16.0); LYMPHOCYTES # (AUTO) 1.1 10^3/uL (1.5-3.5); LYMPHOCYTES % (AUTO) 21.4 %; MEAN CORPUSCULAR HEMOGLOBIN 26.6 pg (27.0-31.0); MEAN CORPUSCULAR HGB CONC 30.9 g/dL (32.0-36.0); MEAN CORPUSCULAR VOLUME 86.1 fL (81.0-99.0); MEAN PLATELET VOLUME 10.3 fL (7.9-10.8); MONOCYTES # (AUTO) 0.4 10^3/uL (0.0-1.0); MONOCYTES % (AUTO) 8.9 %; NEUTROPHILS # (AUTO) 2.9 10^3/uL (1.5-6.6); PLT - PLATELET COUNT 141 10^3/uL (130-450); RED BLOOD COUNT 3.95 10^6/uL (4.20-5.40); RED CELL DISTRIBUTION WIDTH 14.5 % (12.0-15.0)
[2022-12-28 06:33] LABS: CALCIUM 8.2 mg/dL (8.5-10.3); CREATININE 0.4 mg/dL (0.4-1.0); POTASSIUM 3.7 mmol/L (3.5-5.0)
[2022-12-28] MEDS: MULTIVITAMIN W/MINERALS TABLET PO SCH (07:35)
[2022-12-28] MEDS: cefTRIAXone 2 GM in SODIUM CHLORIDE 0.9% MINIBAG 100 ML IV SCH (07:35)
[2022-12-28] MEDS: D MANNOSE 500 MG PO SCH (07:36)
[2022-12-28] MEDS: ENOXAPARIN 30 MG/0.3 ML SYRINGE SUBQ SCH (07:44)
[2022-12-28] MEDS: polyethylene glycoL 3350 17 GM PACKET PO SCH (07:44)
[2022-12-28] MEDS: ASPIRIN EC 81 MG TABLET PO SCH (07:44)
[2022-12-28] MEDS: CARBIDOPA/LEVODOPA ER 25 MG/100 MG TABLET PO SCH ×2 (07:45→20:35)
[2022-12-28] MEDS ORDERED: ACETAMINOPHEN 500 MG TABLET PO PRN (08:38)
--- NOTE | 2022-12-28 18:07 | PROVIDER PROGRESS NOTE ---
Objective - Vital Signs/Intake & Output Vital Signs: Vital Signs x48h Temp Pulse Resp BP Pulse Ox 12/28/22 15:48 36.8 C 69 24 121/75 98 12/28/22 13:00 36.6 C 79 20 109/61 Intake & Output: Intake & Output 12/25/22 12/26/22 12/27/22 12/28/22 23:59 23:59 23:59 23:59 Intake Total 3026.667 3985 2588.333 250 Output Total 2050 2300 2275 975 Balance 721.055 1871 313.333 -725 - Lab Results Fish Bones: 12/28/22 05:54 12/28/22 05:54 Other Labs: Lab Results x24hrs 12/28/22 12/28/22 Range/Units 05:54 05:54 WBC 5.0 (4.8-10.8) x10^3/uL RBC 3.95 L (4.20-5.40) 10^6/uL Hgb 10.5 L (12.0-16.0) g/dL Hct 34.0 L (37.0-47.0) % MCV 86.1 (81.0-99.0) fL MCH 26.6 L (27.0-31.0) pg MCHC 30.9 L (32.0-36.0) g/dL RDW 14.5 (12.0-15.0) % Plt Count 141 (130-450) 10^3/uL MPV 10.3 (7.9-10.8) fL Neut # (Auto) 2.9 (1.5-6.6) 10^3/uL Lymph # (Auto) 1.1 L (1.5-3.5) 10^3/uL [place]eman # (Auto) 0.4 (0.0-1.0) 10^3/uL Eos # (Auto) 0.4 (0.0-0.7) 10^3/uL Baso # (Auto) 0.0 (0.0-0.1) 10^3/uL Absolute Nucleated RBC 0.00 x10^3/uL Nucleated RBC % 0.0 /100WBC Sodium 144 (135-145) mmol/L Potassium 3.7 (3.5-5.0) mmol/L Chloride 112 H (101-111) mmol/L Carbon Dioxide 28 (21-32) mmol/L Anion Gap 4.0 L (6-13) BUN 10 (6-20) mg/dL Creatinine 0.4 (0.4-1.0) mg/dL Estimated GFR (MDRD) 150 (>89) Glucose 79 (70-100) mg/dL Calcium 8.2 L (8.5-10.3) mg/dL Sepsis Event Note (H) - Evaluation Current Stage of Sepsis: Septic shock Possible source of Sepsis: positive: Pulmonary, Genitourinary - Sepsis Criteria Sepsis Criteria: Respiratory: Increasing oxygen requirements, ACCOUNT SERVICES ASSOCIATE: altered consciousness (unrelated to primary neuro pathology), MAP less than 65 mmHg, SBP less than 90 mmHg, Metabolic: lactate > 2 mmol/L Assessment/Plan - Problem List (1) Proteus infection Impression: Sepsis with shock resolved with proteus bacteremia identified The patient presented with a blood pressure of 69 systolic, tachycardic, very high white count of 30, elevated lactic acid and the source appears to be either COVID or healthcare associated pneumonia or UTI. Since receiving antibiotics, she has defervesced. Her last temperature was on December 22 and she has been afebrile since then. There has been no tachycardia. And blood pressure has come up today to 140/90 and 140/85 after being in the 120s for the last couple of days. She is no longer hypoxic and is 97 to 99% on room air. Preliminary blood cultures have gram-negative bacilli. PCR has identified it is Proteus and 12/26/22 results confirmed Blood culture is positive for Proteus. It is resistant to ciprofloxacin, and intermediate sensitivity to levofloxacin. Otherwise sensitive to ampicillin, Unasyn, cefepime, Ceftriaxone, Zosyn and Bactrim. Antibiotics have been ordered to treat both pneumonia and UTI. As such she is on ceftriaxone day #7, and completed azithromycin 3 doses on 12/24. While she has responded to treatment with normalization of her vital signs, and obtundation has improved to the point that she can at least respond to swallow food, she still has increased respiratory effort or sounds. Those are slowly improving but she is very cachectic. Overall prognosis for her is poor. She was on D5 normal saline and I was going to stop her IV fluids. But she developed hyperchloremia, hypernatremia. I changed her to D5 12/25 in the evening. Sodium has improved from 154->147>>142>>144 today. Chloride is getting better and is come down to 117 from 127. As such she did respond to just doing D5. I think the normal saline made her have her hypernatremia hyperchloremia. Plan: IVF stopped 12/27 but continue to monitor Na, K, creat Because the patient's POLST indicated she wants comfort directed care, we will not plan to use pressors or put her in the ICU I will continue ceftriaxone for 7-10 days while she is here since here proteus has multidrug resistance and can't be easily switched to po . Today is Day #7. I anticipate discharge on day #9. (2) KRISTIE (acute kidney injury) resolved. Hypokalemia. Hypernatremia. Conclusion/Plan: This patient's baseline creatinine is 0.4 (records and labs were reviewed). Presented on admission with BUN/creatinine of 44/2.3, consistent with marked volume depletion with this septic shock Laboratory Tests 12/22/22 12/23/22 12/24/22 09:11 05:42 09:26 Creatinine 2.3 H 1.2 H 0.5 Laboratory Tests 12/25/22 08:00 Creatinine 0.4 Laboratory Tests 12/26/22 12/27/22 05:53 05:34 Creatinine 0.4 0.3 L She has responded well to fluid resuscitation antibiotics. Her creatinine is now back to baseline. I can infer that she is improved from that regard, but this unfortunate female is still quite lethargic, and a poor prognosis. Potassium is still low today. This is in spite of potassium riders several days in a row. Today is 3.7 so no K supplmentation needed today. Plan: Plan: Follow BMP daily. (3) Obtundation improved. more awake and able to eat some food. responds to voice and commands but slowly. She is at baseline from what I can tell. Granddaughter states that she can get very muted and withdrawn if she does not give her medications. This makes sense that now that she has been able to swallow, and I started her medications, the patient is little bit more alert. Conclusion/Plan: Patient is underlying dementia and Parkinson's. She presented as obtunded condition 2 months ago also when she had sepsis Plan: continue abx (4) COVID Conclusion/Plan: According to the ED providers discussion with the daughter by phone, this patient tested positive for COVID 1 week ago. The patient has some hypoxia, patchy infiltrates on chest x-ray Plan: IV Decadron Day #7, plan for 10 days The patient is not a candidate to start remdesivir given her onset being a week ago or more (5) Hypoxia resolved Conclusion/Plan: This is likely from her pneumonia. Even though she was saturating at 97 to 99%, she was still getting nasal cannula on her first day here. Starting on the we took off her oxygen and she has been 99 to 100% on room air. Plan: We will provide supplemental oxygen, saturation target will be 90% or above (6) UTI (urinary tract infection) Conclusion/Plan: Patient gets frequent UTIs. The UA now showed a lot of squamous cells therefore no culture was indicated. Patient has already been started on empiric ceftriaxone which would treat a UTI as well and is treating this pneumonia. Proteus is growing in her blood. Plan: No repeat UA Continue empiric iv ceftriaxone Qualifiers: Urinary tract infection type: site unspecified Hematuria presence: without hematuria Qualified Code(s): N39.0 - Urinary tract infection, site not specified (7) Parkinson's disease dementia Conclusion/Plan: The daughter had told us, that even at her best, the patient has hallucinations. I have her meds since she is swallowing now. Her voice has steadily improved now that she has been on medications. mirtazapine 7.5 p.o. every afternoon. She is on 2 forms of carbidopa levodopa. Extended release 25/100 twice daily. And carbidopa levodopa 25/100 at 6 in the morning, 10 AM, 1400, 1800, and 2200. (8)Severe protein calorie malnutrition In December 2016 she was 74 kg. February 2017 she was 69 kg. July 2021 she was 54 kg. September 2022 she was 45 kg. She is 44 kg on admission. 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 Lack of coordination with swallowing mechanism. This is very common with motor neuron disease. Focus is on comfort measures so she is not a candidate for tube feeds or PEG tube. (2) Sepsis Qualifiers: Qualified Code(s): A41.9 - Sepsis, unspecified organism; R65.21 - Severe sepsis with septic shock; N17.9 - Acute kidney failure, unspecified
[2022-12-28] MEDS: MIRTAZAPINE 15 MG TABLET PO SCH (20:35)
[2022-12-28] MEDS: METOPROLOL SUCCINATE 25 MG TABLET PO SCH (20:35)
[2022-12-28] MEDS: PRAMIPEXOLE 0.25 MG TABLET PO SCH (20:36)
[2022-12-29] MEDS: SODIUM CHLORIDE FLUSH 0.9% 10 ML SYRINGE IVP SCH ×3 (00:13→17:32)
[2022-12-29] MEDS: CARBIDOPA/LEVODOPA 25 MG/100 MG TABLET PO SCH ×5 (05:56→21:29)
[2022-12-29 06:17] LABS: CALCIUM 8.1 mg/dL (8.5-10.3); CREATININE 0.3 mg/dL (0.4-1.0); POTASSIUM 3.5 mmol/L (3.5-5.0)
[2022-12-29] MEDS: cefTRIAXone 2 GM in SODIUM CHLORIDE 0.9% MINIBAG 100 ML IV SCH (08:39)
[2022-12-29] MEDS: ENOXAPARIN 30 MG/0.3 ML SYRINGE SUBQ SCH (08:50)
[2022-12-29] MEDS: polyethylene glycoL 3350 17 GM PACKET PO SCH (08:51)
[2022-12-29] MEDS: CARBIDOPA/LEVODOPA ER 25 MG/100 MG TABLET PO SCH ×2 (08:54→21:30)
[2022-12-29] MEDS: DOCUSATE SODIUM 250 MG CAPSULE PO SCH (08:54)
[2022-12-29] MEDS: ASPIRIN EC 81 MG TABLET PO SCH (08:54)
[2022-12-29] MEDS: MULTIVITAMIN W/MINERALS TABLET PO SCH (08:54)
[2022-12-29] MEDS: SENNA 8.6 MG TABLET PO SCH (08:54)
[2022-12-29] MEDS: D MANNOSE 500 MG PO SCH (09:11)
[2022-12-29] MEDS: ZINC OXIDE 20% OINT 30 GM TUBE TOP PRN (10:02)
[2022-12-29] MEDS: ACETAMINOPHEN 500 MG TABLET PO PRN (12:32)
--- NOTE | 2022-12-29 15:33 | PROVIDER PROGRESS NOTE ---
Subjective - Prog Note Date Prog Note Date: 12/29/22 Prog Note Time: 15:23 - Subjective Subjective: Voice is louder. She is swallowing better. For the last 2 days she has become more more interactive. Current Medications - Current Medications Current Medications: Active Medications Acetaminophen (Acetaminophen 500 Mg Tablet) 1,000 mg PO Q6H PRN PRN Reason: Pain or Fever > 38C (100.4F) Last Admin: 12/29/22 12:32 Dose: 1,000 mg Aspirin (Aspirin Ec 81 Mg Tablet) 81 mg PO DAILY [facility] Last Admin: 12/29/22 08:54 Dose: 81 mg Carbidopa/Levodopa (Carbidopa/Levodopa Er 25 Mg/100 Mg Tablet) 1 tab PO BID [facility] Last Admin: 12/29/22 08:54 Dose: 1 tab Carbidopa/Levodopa (Carbidopa/Levodopa 25 Mg/100 Mg Tablet) 1 tab PO 5XD [facility] Last Admin: 12/29/22 13:49 Dose: 1 tab Cholecalciferol (Cholecalciferol 5,000 Unit Capsule) 50,000 unit PO Q30D [facility] Docusate Sodium (Docusate Sodium 250 Mg Capsule) 250 - 500 mg PO DAILY [facility] Last Admin: 12/29/22 08:54 Dose: 250 mg Enoxaparin Sodium (Enoxaparin 30 Mg/0.3 Ml Syringe) 30 mg SUBQ DAILY [facility] Last Admin: 12/29/22 08:50 Dose: 30 mg Ceftriaxone Sodium 2 gm/ (Sodium Chloride) 100 mls @ 200 mls/hr IV DAILY [facility] Last Infusion: 12/29/22 09:41 Dose: Infused Lidocaine (Lidocaine Patch 5%) 1 patch TOP DAILY PRN PRN Reason: PAIN Metoprolol Succinate (Metoprolol Succinate 25 Mg Tablet) 12.5 mg PO QPM [facility] Last Admin: 12/28/22 20:35 Dose: 12.5 mg Mirtazapine (Mirtazapine 15 Mg Tablet) 7.5 mg PO QPM [facility] Last Admin: 12/28/22 20:35 Dose: 7.5 mg Multi-Ingredient Ointment (Zinc Oxide 20% Oint 30 Gm Tube) 1 applic TOP PRN PRN PRN Reason: Skin Care Last Admin: 12/29/22 10:02 Dose: 1 applic Multivitamins/Minerals (Multivitamin W/Minerals Tablet) 1 tab PO DAILYWM [facility] Last Admin: 12/29/22 08:54 Dose: 1 tab D-Mannose [Azo D- Mannose] 500 Mg Capsule 1 each PO DAILY [facility] Last Admin: 12/29/22 09:11 Dose: Not Given Polyethylene Glycol (Polyethylene Glycol 3350 17 Gm Packet) 17 gm PO DAILY [facility] Last Admin: 12/29/22 08:51 Dose: 17 gm Pramipexole Dihydrochloride (Pramipexole 0.25 Mg Tablet) 0.25 mg PO QPM [facility] Last Admin: 12/28/22 20:36 Dose: 0.25 mg Senna (Senna 8.6 Mg Tablet) 8.6 - 17.2 mg PO DAILY [facility] Last Admin: 12/29/22 08:54 Dose: 8.6 mg Sodium Chloride (Sodium Chloride Flush 0.9% 10 Ml Syringe) 10 ml IVP PRN PRN PRN Reason: NEEDED PER PROVIDER ORDERS Sodium Chloride (Sodium Chloride Flush 0.9% 10 Ml Syringe) 10 ml IVP 0100,0900,1700 [facility] Last Admin: 12/29/22 08:32 Dose: 10 ml Carbidopa/Levodopa [Carbidopa-Levo ER 25-100 Tab] 1 tab PO BID 01/26/17 Ipratropium [place] 2 sprays RASHI BID 01/26/17 Mirtazapine 7.5 mg PO QPM 01/26/17 Pramipexole [Mirapex] 0.25 mg PO QPM 01/26/17 Acetaminophen [Tylenol] 650 mg PO Q4H PRN 10/09/22 Aspirin [Aspirin EC] 81 mg PO DAILY 10/09/22 Carbidopa/Levodopa 25/100 [Sinemet 25 mg/100 mg] 1 tab PO 5XD 10/09/22 D-Mannose [Azo D-Mannose] 500 mg PO DAILY 10/09/22 Estrogens, Conjugated Cream [Premarin Cream] 0.5 g VG MOFR 10/09/22 Lidocaine Patch 5% [Lidoderm Patch] 1 patch TOP DAILY PRN 10/09/22 Metoprolol Succinate [Toprol Xl] 12.5 mg PO QPM 10/09/22 Sennosides [Senna] 17.2 mg PO DAILY 10/09/22 polyethylene glycoL 3350 [Miralax] 17 g PO DAILY 10/09/22 Cholecalciferol (Vitamin D3) [Vitamin D3] 1,250 mcg PO Q30D 12/22/22 Objective - Vital Signs/Intake & Output Reviewed Vital Signs: Yes Vital Signs: Vital Signs x48h Temp Pulse Resp BP BP Pulse Ox 12/29/22 12:14 36.4 C L 68 18 112/67 100 12/29/22 08:28 36.5 C 80 20 118/78 98 Intake & Output: Intake & Output 12/26/22 12/27/22 12/28/22 12/29/22 23:59 23:59 23:59 23:59 Intake Total 3985 2588.333 604 370 Output Total 2300 2275 1250 925 Balance 1685 313.333 -025 -903 - Objective General Appearance: positive: Alert, Other (very cachectic elderly female, weak, bedbound, able to swallow and speak again) Eyes Bilateral: positive: PERRL, EOMI ENT: positive: No signs of dehydration Neck: positive: No JVD. negative: Stiff neck Respiratory: positive: No respiratory distress, Other (shallow, unlabored, diminished sounds). negative: Wheezes, Rales, Rhonchi Cardiovascular: positive: Regular rate & rhythm, Systolic murmur Abdomen: positive: Non-tender, No organomegaly, Nml bowel sounds, No distention Skin: positive: Warm, Dry, Pallor Extremities: positive: Full ROM, No pedal edema Neurologic/Psychiatric: positive: CN's nml (2-12). negative: Motor nml (weak and bedbound, slack fascies, weak voice, able to move arms and legs but weak) - Lab Results Fish Bones: 12/28/22 05:54 12/29/22 05:55 Other Labs: Lab Results x24hrs 12/29/22 Range/Units 05:55 Sodium 142 (135-145) mmol/L Potassium 3.5 (3.5-5.0) mmol/L Chloride 110 (101-111) mmol/L Carbon Dioxide 28 (21-32) mmol/L Anion Gap 4.0 L (6-13) BUN 9 (6-20) mg/dL Creatinine 0.3 L (0.4-1.0) mg/dL Estimated GFR (MDRD) 209 (>89) Glucose 81 (70-100) mg/dL Calcium 8.1 L (8.5-10.3) mg/dL ABX Reporting Has patient been on IV antibiotics over the past 48 hours?: Yes Sepsis Event Note (H) - Evaluation Current Stage of Sepsis: Septic shock Possible source of Sepsis: positive: Pulmonary, Genitourinary - Sepsis Criteria Sepsis Criteria: Respiratory: Increasing oxygen requirements, VISUAL SPECIALIST: altered consciousness (unrelated to primary neuro pathology), MAP less than 65 mmHg, SBP less than 90 mmHg, Metabolic: lactate > 2 mmol/L Assessment/Plan - Problem List (1) Proteus infection Impression: The patient presented with a blood pressure of 69 systolic, tachycardic, very high white count of 30, elevated lactic acid and the source appears to be either COVID or healthcare associated pneumonia or UTI. Since receiving antibiotics, she has defervesced. Her last temperature was on December 22 and she has been afebrile since then. There has been no tachycardia. And blood pressure has come up today to 140/90 and 140/85 after being in the 120s for the last couple of days. She is no longer hypoxic and is 97 to 99% on room air. Preliminary blood cultures have gram-negative bacilli. PCR has identified it is Proteus and 12/26/22 results confirmed Blood culture is positive for Proteus. It is resistant to ciprofloxacin, and intermediate sensitivity to levofloxacin. Otherwise sensitive to ampicillin, Unasyn, cefepime, Ceftriaxone, Zosyn and Bactrim. Antibiotics have been ordered to treat both pneumonia and UTI. As such she is on ceftriaxone day #7, and completed azithromycin 3 doses on 12/24. While she has responded to treatment with normalization of her vital signs, and obtundation has improved to the point that she can at least respond to swallow food, she still has increased respiratory effort or sounds. Those are slowly improving but she is very cachectic. Overall prognosis for her is poor. She was on D5 normal saline and I was going to stop her IV fluids. But she developed hyperchloremia, hypernatremia. I changed her to D5 12/25 in the evening. Sodi um has improved from 154->147>>142>>144 today. Chloride is getting better and is come down to 117 from 127. As such she did respond to just doing D5. I think the normal saline made her have her hypernatremia hyperchloremia. Plan: IVF stopped 12/27 but continue to monitor Na, K, creat Because the patient's POLST indicated she wants comfort directed care, we will not plan to use pressors or put her in the ICU I will continue ceftriaxone for 7-10 days while she is here since here proteus has multidrug resistance and can't be easily switched to po . Today is Day #8. I anticipate discharge on day #9 which is tomorrow. She lives at a [facility] facility and will be returned to the facility. We will check COVID status today. (2) KRISTIE (acute kidney injury) resolved. Hypokalemia. Hypernatremia. Conclusion/Plan: This patient's baseline creatinine is 0.4 (records and labs were reviewed). Presented on admission with BUN/creatinine of 44/2.3, consistent with marked volume depletion with this septic shock Laboratory Tests 12/22/22 12/23/22 12/24/22 09:11 05:42 09:26 Creatinine 2.3 H 1.2 H 0.5 Laboratory Tests 12/25/22 08:00 Creatinine 0.4 Laboratory Tests 12/26/22 12/27/22 05:53 05:34 Creatinine 0.4 0.3 L Laboratory Tests 12/28/22 12/29/22 05:54 05:55 Creatinine 0.4 0.3 L She has responded well to fluid resuscitation antibiotics. Her creatinine is now back to baseline. I can infer that she is improved from that regard, but this unfortunate female is still quite lethargic, and a poor prognosis. Potassium is still low today. This is in spite of potassium riders several days in a row. Today is 3.7 so no K supplmentation needed today. Plan: Plan: Follow BMP daily. (3) Obtundation resolved. more awake and able to eat some food. responds to voice and commands but slowly. She is at baseline from what I can tell. Granddaughter states that she can get very muted and withdrawn if she does not give her medications. This makes sense that now that she has been able to swallow, and I started her medications, the patient is little bit more alert. Conclusion/Plan: Patient is underlying dementia and Parkinson's. She presented as obtunded condition 2 months ago also when she had sepsis Plan: continue abx (4) COVID Conclusion/Plan: According to the ED providers discussion with the daughter by phone, this patient tested positive for COVID 1 week ago. The patient has some hypoxia, patchy infiltrates on chest x-ray Plan: IV Decadron Day #8, plan for 10 days The patient is not a candidate to start remdesivir given her onset being a week ago or more (5) Hypoxia resolved Conclusion/Plan: This is likely from her pneumonia. Even though she was saturating at 97 to 99%, she was still getting nasal cannula on her first day here. Starting on the we took off her oxygen and she has been 99 to 100% on room air. Plan: We will provide supplemental oxygen, saturation target will be 90% or above (6) UTI (urinary tract infection) Conclusion/Plan: Patient gets frequent UTIs. The UA now showed a lot of squamous cells therefore no culture was indicated. Patient has already been started on empiric ceftriaxone which would treat a UTI as well and is treating this pneumonia. Proteus is growing in her blood. Plan: No repeat UA Continue empiric iv ceftriaxone Qualifiers: Urinary tract infection type: site unspecified Hematuria presence: without hematuria Qualified Code(s): N39.0 - Urinary tract infection, site not specified (7) Parkinson's disease dementia Conclusion/Plan: The daughter had told us, that even at her best, the patient has hallucinations. I have her meds since she is swallowing now. Her voice has steadily improved now that she has been on medications. mirtazapine 7.5 p.o. every afternoon. She is on 2 forms of carbidopa levodopa. Extended release 25/100 twice daily. And carbidopa levodopa 25/100 at 6 in the morning, 10 AM, 1400, 1800, and 2200. (8)Severe protein calorie malnutrition In December 2016 she was 74 kg. February 2017 she was 69 kg. July 2021 she was 54 kg. September 2022 she was 45 kg. She is 44 kg on admission. 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 Lack of coordination with swallowing mechanism. This is very common with motor neuron disease. Focus is on comfort measures so she is not a candidate for tube feeds or PEG tube. (2) Sepsis Qualifiers: Qualified Code(s): A41.9 - Sepsis, unspecified organism; R65.21 - Severe seps is with septic shock; N17.9 - Acute kidney failure, unspecified
--- NOTE | 2022-12-29 15:50 | DISCHARGE SUMMARY ---
Discharge Summary Admit Date: 12/22/22 Discharge Date: 12/29/22 Discharging Provider: Natalie Cunha MD Primary Care Provider: Dell Escobar MD Code Status: Do Not Attempt Resuscitation Condition at Discharge: Poor Discharge Disposition: 01 Home, Self Care - DIAGNOSES Discharge Diagnoses with Status of Each Condition: 1. Sepsis 2. Proteus UTI 3. Acute kidney injury 4. Hypokalemia 5. Hypernatremia 6. Metabolic encephalopathy 8. History of COVID 1 week before admission 9. Hypoxia, present on admission, resolved 10. Parkinson's disease with dementia 11. Severe protein calorie malnutrition - HPI History of Present Illness: This is an 87-year-old white female with a history of Parkinson's disease with d curry, she was admitted here 2 months ago for sepsis from a UTI. Her daughter was often at the bedside and did remark that she has hallucinations which are her baseline. Today the staff at her facility noticed that she was more obtunded and had a low blood pressure and EMS was called. Upon arrival to the ED she had systolic blood pressure of 69. Work-up showed that she is COVID-positive, chest x-ray has patchy infiltrates, she has elevated WBC of 30, elevated Lactic acid level of 2.3, elevated BUN/creat 44/2.3 (her baseline creat is 0.4). She was started on IV fluids, has gotten 2 L. Her blood pressure has improved to 85 systolic. Patient was desaturating at 87% on room air at presentation and she was put on O2 2L via nasal cannula, saturations improved to100%. The ED provider reached out to the daughter who herself has COVID, and the daughter said that the mother tested positive for COVID 1 week ago, unknown how long symptoms have lasted however. The ED provider discussed with the daughter that the patient is in septic shock, and has a poor prognosis because of her underlying dementia, current new COVID with desaturation, and new KRISTIE. She has a POLST in place that indicates DNR and limited interventions. The daughter asked that everything be tried to treat her short of aggressive measures. The ED provider reached out to me on the Hospitalist team and we discussed the patient. She is being admitted to manage septic shock, UTI, HCAP, obtundation. She is in critical condition. CODE BLUE status is DNR/DNI. 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 - HOSPITAL COURSE Hospital Course: Although the patient is DO NOT RESUSCITATE, and focuses on comfort, her daughter, advocate, and power of almond grinder still wanted her admitted and treated with IV antibiotics and IV fluids. She later shared with one of the nurses that she felt offended when comfort measures were going to be focused upon and she felt like she was being asked to "assassinate her mother". The patient responded to IV fluids, antibiotics. Blood cultures grew out Proteus. Proteus was resistant to ciprofloxacin, Levaquin but sensitive to all else. She was kept in the hospital to complete 7 to 10 days of IV antibiotic therapy. During this time she was on Rocephin. At 1 point, normal saline resulted in hypernatremia and hypokalemia. Chloride was elevated. She was switched to D5 and responded with normalization of those lab values. At discharge sodium was 142, potassium 3.5, chloride 110, BUN 9. Admission creatinine was 2.3. By the time of discharge she was 0.3. White cell count was 30.3 on admission. She was 5.0 on the day of discharge. When she was initially admitted she was severely obtunded, unable to swallow and asked that she could not get any of her Parkinson's meds. When she recovered fr om the sepsis, she had a very low, almost an audible voice. Did not have enough strength to even lift her head off the bed. Her Parkinson's medications helped quite a bit. She is still very weak, bedbound. This is her baseline status. But her voice came back and she was able to communicate with us effectively. She seems to be very gentle, pleasant individual. She is disoriented to place and time. But recognizes her family when they come to visit. Several times her granddaughter came to feed her since appetite was poor. When she came here, she was on a regular diet. At discharge she is in a pured soft diet. It is hoped that swallowing will become normal, voice will become normal and she can go back to a regular diet. Discharge temperature was 36.3. Heart rate 64. Blood pressure 121/75. Respirations 22. 98% on room air. She is a 5 foot 2 inch elderly female, cachectic, very thin, 44 kg. Dry lips. Still cracked in spite of adequate hydration. Low almost inaudible voice but smiling, cooperative. Smile is forced. Most of the time she is with flat affect, masked facies. Lungs have coarse upper airway sounds, but no increased respiratory effort, no respiratory distress. Very thin AP diameter. Occasional cough, that is very weak, and really cannot bring up phlegm appropriately. Regular rate and rhythm with a systolic ejection murmur. Rib cage visible through her chest wall. Abdomen is soft, scaphoid, nontender. Normal bowel sounds. She has not had a bowel movement since December 24. Extremities are very thin, feet are puffy with edema. But the edema resolves abruptly at the rinaldi and calves where she had SCDs. She is not moving her limbs spontaneously. She is deaf. She still really is bedbound. She does not have any strength to be able to sit herself up. Completely dependent on nursing to feed her, bathe her, rolled her body to protect for bedsores, but will cooperate. Greater than 30 minutes spent coordinating discharge. - ALLERGIES Allergies/Adverse Reactions: Allergies Allergy/AdvReac Type Severity Reaction Status Date / Time alendronate sodium Allergy Unknown Verified 12/22/22 08:54 [From Fosamax] amoxicillin Allergy Unknown Verified 12/22/22 08:54 oxycodone Allergy Unknown Verified 12/22/22 08:54 risedronate sodium Allergy Unknown Verified 12/22/22 08:54 Sulfa (Sulfonamide Allergy Rash Verified 12/22/22 08:54 Antibiotics) tramadol Allergy Unknown Verified 12/22/22 08:54 - MEDICATIONS Home Medications: Ambulatory Orders Medication Instructions Recorded Confirmed Carbidopa/Levodopa [Carbidopa-Levo 1 tab PO BID 01/26/17 12/22/22 ER 25-100 Tab] Ipratropium [place] 2 sprays RASHI BID 01/26/17 12/22/22 Mirtazapine 7.5 mg PO QPM 01/26/17 12/22/22 Pramipexole [Mirapex] 0.25 mg PO QPM 01/26/17 12/22/22 Acetaminophen [Tylenol] 650 mg PO Q4H PRN 10/09/22 12/22/22 Aspirin [Aspirin EC] 81 mg PO DAILY 10/09/22 12/22/22 Carbidopa/Levodopa 25/100 [Sinemet 1 tab PO 5XD 10/09/22 12/22/22 25 mg/100 mg] D-Mannose [Azo D-Mannose] 500 mg PO DAILY 10/09/22 12/22/22 Estrogens, Conjugated Cream 0.5 g VG MOFR 10/09/22 12/22/22 [Premarin Cream] Lidocaine Patch 5% [Lidoderm Patch] 1 patch TOP DAILY PRN 10/09/22 12/22/22 Metoprolol Succinate [Toprol Xl] 12.5 mg PO QPM 10/09/22 12/22/22 Sennosides [Senna] 17.2 mg PO DAILY 10/09/22 12/22/22 polyethylene glycoL 3350 [Miralax] 17 g PO DAILY 10/09/22 12/22/22 Cholecalciferol (Vitamin D3) 1,250 mcg PO Q30D 12/22/22 12/22/22 [Vitamin D3] - LABS Result Diagrams: 12/28/22 05:54 12/29/22 05:55 - SEPSIS Current Stage of Sepsis: Septic shock Possible source of Sepsis: Pulmonary, Genitourinary Sepsis Criteria: Respiratory: Increasing oxygen requirements, BARREL RACER: altered consciousness (unrelated to primary neuro pathology), MAP less than 65 mmHg, SBP less than 90 mmHg, Metabolic: lactate > 2 mmol/L
--- NOTE | 2022-12-29 15:54 | Discharge Plan ---
"Discharge Plan for SNF / [facility] - Discharge Plan And Transition Orders Problem Reviewed?: Yes Disposition: 01 Home, Self Care Condition: Poor Allergies and Adverse Reactions: Allergies Allergy/AdvReac Type Severity Reaction Status Date / Time alendronate sodium Allergy Unknown Verified 12/22/22 08:54 [From Fosamax] amoxicillin Allergy Unknown Verified 12/22/22 08:54 oxycodone Allergy Unknown Verified 12/22/22 08:54 risedronate sodium Allergy Unknown Verified 12/22/22 08:54 Sulfa (Sulfonamide Allergy Rash Verified 12/22/22 08:54 Antibiotics) tramadol Allergy Unknown Verified 12/22/22 08:54 Health Concerns: This 87-year-old female has Parkinson's dementia and hallucinations, severe protein calorie malnutrition, is basically bedbound and lives at a [facility] facility. She tested positive for COVID 8 days prior to admission. On the day of admission the patient was found obtunded, with a low blood pressure and EMS was called. Daughter and POA states that mom is a DO NOT RESUSCITATE. In the emergency room she had a patchy infiltrate on chest x-ray but was felt to have a severely abnormal urinalysis causing UTI and sepsis. Blood cultures were positive for Proteus. Resistant to quinolones. A total of 9 days of IV antibiotic therapy was given. During her stay the patient had no fever. She had no hypotension. Due to her obtunded status, she was not able to get her Parkinson's medications. This resulted in almost a mute status. Vocal cords were severely impaired and we could barely hear her at times. Once metabolic encephalopathy resolved, and she was able to swallow medications, her voice slowly came back. It is still almost an audible but she responds very nicely to her granddaughter who came in several times to feed her grandmother. Acute kid bertin insufficiency of 2.3 creatinine resolved so that the time of discharge she was 0.3. Hypokalemia was treated with potassium supplementation. White cell count on admission was 30,000 was 5.0 at discharge. Plan of Treatment: She is to return to her residential living. She is not a candidate for physical therapy. Care Goals: To return to her residential living with focus on comfort measures. Assessment: patient has dementia, low voice, bedbound and her advocates are her daughter and granddaughter. - SNF / [facility] Transition Orders Admit to (Facility): [facility] Under the care of (Name): Dhaval CUELLAR Discharge Diagnosis: 1. Sepsis 2. Proteus UTI 3. Acute kidney injury 4. Hypokalemia 5. Hypernatremia 6. Metabolic encephalopathy 8. History of COVID 1 week before admission 9. Hypoxia, present on admission, resolved 10. Parkinson's disease with dementia 11. Severe protein calorie malnutrition 12. Bedbound status Medicare Certification Statement: Notify PCP of admission and forward orders to primary provider for signature. Weight on admission and: Daily Other Notification Orders: Call PCP immediately if patient develops dyspnea, chest pain/tightness or edema. House Bowel Program: Yes Additional Bowel Program Orders: If no BM after 2 days, nurse may give M.O.M. 30ml PO PRN and/or ducolax Supp 1 IN and/or CARO 250mg P.O., and/or senna 1-2 tabs PO. On day 3 nurse may give repeat above order until residents constipation is resolved. Annual Influenza Vaccine (between May 30 and December 27): Yes Two-step PPD per [facility] [phone] or approved exception documents: Yes Medication Orders: PLEASE REFER TO THE DISCHARGE MEDICATION LIST. Insulin Orders?: No - Diet Type: Geriatric Texture: Puree Liquids: [place] thick May have monthly special meal: Yes - Therapies | Activity Therapy: Evaluation | Treat if indicated: Speech Rehabilitation Potential: Maximize functional status Activity: Activity as Tolerated"
[2022-12-29] MEDS: METOPROLOL SUCCINATE 25 MG TABLET PO SCH (21:29)
[2022-12-29] MEDS: MIRTAZAPINE 15 MG TABLET PO SCH (21:30)
[2022-12-29] MEDS: PRAMIPEXOLE 0.25 MG TABLET PO SCH (21:30)
[2022-12-30] MEDS: SODIUM CHLORIDE FLUSH 0.9% 10 ML SYRINGE IVP SCH ×2 (01:00→08:58)
[2022-12-30] MEDS: CARBIDOPA/LEVODOPA 25 MG/100 MG TABLET PO SCH ×2 (05:47→10:45)
[2022-12-30 08:23] VITALS: BP 121/75
[2022-12-30] MEDS: DOCUSATE SODIUM 250 MG CAPSULE PO SCH ×2 (08:52→08:53)
[2022-12-30] MEDS: MULTIVITAMIN W/MINERALS TABLET PO SCH ×2 (08:52→08:53)
[2022-12-30] MEDS: ENOXAPARIN 30 MG/0.3 ML SYRINGE SUBQ SCH (08:52)
[2022-12-30] MEDS: ASPIRIN EC 81 MG TABLET PO SCH ×2 (08:52→08:53)
[2022-12-30] MEDS: SENNA 8.6 MG TABLET PO SCH (08:54)
[2022-12-30] MEDS: CARBIDOPA/LEVODOPA ER 25 MG/100 MG TABLET PO SCH (08:58)
[2022-12-30] MEDS: polyethylene glycoL 3350 17 GM PACKET PO SCH (08:58)
[2022-12-30] MEDS: cefTRIAXone 2 GM in SODIUM CHLORIDE 0.9% MINIBAG 100 ML IV SCH (08:58)
[2022-12-30] MEDS: D MANNOSE 500 MG PO SCH (09:00)
[2022-12-30] MEDS: ACETAMINOPHEN 500 MG TABLET PO PRN (10:46)
[2022-12-30] MEDS ORDERED: CHOLECALCIFEROL 5,000 UNIT CAPSULE PO SCH (18:00)
== END 2022-12-30 14:22 | disposition home or self-care (01) | DRG 871 ==
LOC: EDUNIT# → ED 08:43 → MS2 11:33
PROVIDERS: ADMIT Internal Medicine; ATTEND Specialist
DX: A41.9 Sepsis, unspecified organism (principal); A41.59 Other Gram-negative sepsis; E43 Unspecified severe protein-calorie malnutrition; G93.41 Metabolic encephalopathy; R65.21 Severe sepsis with septic shock; J18.9 Pneumonia, unspecified organism; U07.1 COVID-19; N39.0 Urinary tract infection, site not specified; F02.80 Dementia in other diseases classified elsewhere, unspecified severity, without behavioral disturbance, psychotic disturbance, mood disturbance, and anxiety; N17.9 Acute kidney failure, unspecified; Z16.23 Resistance to quinolones and fluoroquinolones; E87.0 Hyperosmolality and hypernatremia; F02.82 Dementia in other diseases classified elsewhere, unspecified severity, with psychotic disturbance; Z68.1 Body mass index [BMI] 19.9 or less, adult; R64 Cachexia; E87.6 Hypokalemia; R09.02 Hypoxemia; G20 Parkinson's disease; L89.152 Pressure ulcer of sacral region, stage 2; I95.9 Hypotension, unspecified; Z66 Do not resuscitate; I10 Essential (primary) hypertension; E78.00 Pure hypercholesterolemia, unspecified; Z86.73 Personal history of transient ischemic attack (TIA), and cerebral infarction without residual deficits; R13.10 Dysphagia, unspecified; Z74.01 Bed confinement status; R53.1 Weakness; R63.0 Anorexia; H91.90 Unspecified hearing loss, unspecified ear; R00.0 Tachycardia, unspecified
CPT/HCPCS: 36415; 51701; 71045; 80048; 80053; 81001; 83605; 83690; 85025; 85610; 85730; 87040; 87077; 87150; 87181; 87633; 87635; 96361; 96365; 96375; 99285; A9270; J0131; J1650; 81003; 87086